=== PATIENT | female | born 1935 | race Caucasian/White ===

== ENCOUNTER 2020-04-02 10:25 | Inpatient (IN) | payer MEDICARE ==
--- NOTE | 2020-04-02 11:33 | RAD ---
XR Chest 1 View Portable HISTORY: Left hip pain. Bone metastases COMPARISON: 04/05/2015 FINDINGS: The heart size is normal. There is continued elevation of the right hemidiaphragm The lungs are without focal areas of consolidation, pneumothorax or pleural effusions. IMPRESSION: No radiographic evidence of acute cardiopulmonary process.
[2020-04-02 11:36] LABS: #Basophils 0.1 thou/uL (0.0-0.2); #Eosinphils 0.2 thou/uL (0.0-0.7); #Lymphocytes 1.2 thou/uL (1.20-3.40); #Monocytes 0.4 thou/uL (0.11-0.59); %Basophils 0.9 % (0.0-1.0); %Lymphocytes 15.1 % (21.0-51.0); %Monocytes 4.9 % (0.0-10.0); %Neutrophils 77.1 % (42.0-75.0); Hemoglobin 13.4 g/dL (12.0-16.0); Mean Corpuscular HGB CONC 33.5 g/dL (32.0-36.0); Mean Corpuscular Hemoglobin 31.1 pg (27.0-31.0); Mean Platelet Volume 8.7 fL (7.4-10.4); Platelet Count 99 thou/uL (130-400); RBC Distribution Width 15.4 % (11.5-14.5); Red Blood Cell (RBC) Count 4.31 mill/uL (4.20-5.40); White Blood Cell (WBC) Count 7.7 thou/uL (4.8-10.8)
[2020-04-02 11:39] LABS: ALT (SGPT) 117 U/L (8-55); AST (SGOT) 135 U/L (5-34); Albumin 3.4 g/dL (3.4-4.8); Alkaline Phosphatase 1079 U/L (40-110); Anion Gap 15 mmol/L (10-20); BUN (Urea Nitrogen) 16 mg/dL (9.8-20.1); Bilirubin, Total 0.7 mg/dL (0.2-1.2); Calc. Creatinine Clearance 0 mL/min (70-130); Calcium 9.2 mg/dL (7.8-10.44); Carbon Dioxide 25 mmol/L (23-31); Chloride 94 mmol/L (98-107); Globulin 2.9 g/dL (2.4-3.5); Glucose 113 mg/dL (83-110); Magnesium 1.9 mg/dL (1.6-2.6); Potassium 3.6 mmol/L (3.5-5.1); Protein, Total 6.3 g/dL (5.8-8.1); Sodium 130 mmol/L (136-145)
[2020-04-02] MEDS ORDERED: Morphine 4 MG/ML VIAL ONE (13:07)
[2020-04-02] MEDS ORDERED: Acetaminophen 650 MG Suppository PR PRN (13:26)
--- NOTE | 2020-04-02 13:47 | PDOC.HHP ---
Hospitalist HPI Generalized weakness, L hip pain History of Present Illness: Ms. Mistry is an 84-year-old female with past medical history of hypertension, hyperlipidemia, asthma, breast cancer status post bilateral mastectomy with ch emo and radiation over 10 years ago who presents to the ER for generalized weakness and left hip pain. Of note patient initially presented to [facility] last week on 127 for a fall and was found to have a left hip fracture and extensive osteolytic and sclerotic lesions concerning for mets. Since there were no oncology services or orthopedic surgical services available there patient was supposed to be transferred to [facility], however patient and her declined transfer and instead elected to pursue outpatient follow-up. They were scheduled for an outpatient bone biopsy with Dr. Woodward as well as outpatient oncology follow-up with Dr. Fischer. Since leaving the mergency room patient has been increasingly weak, and unable to ambulate. Her also reports that she has not been eating much. She denies chest pain, shortness of breath, abdominal pain, nausea vomiting diarrhea melena hematochezia. She endorses generalized fatigue weakness. She denies any recent weight loss and denies fever chills night sweats. She reports her left hip pain is tolerable and she is able to lift her left hip but she is unable to bear weight at this time. In emergency room initial vital signs 118/62, 114, 18, 97.5, 95% on room air. Labs significant for sodium of 130, potassium 3.6, BUN/CR 16/0.75. WBC 7.7, H/H 13.4/40.1, platelets 99. AST/ALT 135/119, alk phos 1079. Chest x-ray with no acute findings. CT abdomen pelvis done at [facility] on showed a left iliac wing fracture extending into the iliac bone to level of the SI joint, pathologic vertebral fracture of S1, and extensive lytic and sclerotic lesions consistent with metastasis. Allergies/Adverse Reactions: Allergy/AdvReac Type Severity Reaction Status Date / Time No Known Allergies Allergy Unverified 04/04/20 12:01 Home Medications: Medication Instructions Recorded Confirmed Type Benzonatate [Tessalon] 100 mg PO TID PRN 04/02/20 04/02/20 History HYDROcodone Bit/APAP 5/325 [[place] 1 tab PO Q6HR PRN 04/02/20 04/02/20 History 5/325] Levothyroxine Sodium 112 mcg PO DAILY 04/02/20 04/02/20 History [Levothyroxine] Lisinopril 20 mg PO DAILY 04/02/20 04/02/20 History Melatonin 3 mg PO QPM 04/02/20 04/02/20 History Memantine HCl [Namenda] 10 mg PO DAILY 04/02/20 04/02/20 History Montelukast Sodium [Singulair] 10 mg PO DAILY 04/02/20 04/02/20 History Naproxen Sodium [Aleve] 220 mg PO DAILY 04/02/20 04/02/20 History guaiFENesin ER [Mucinex] 600 mg PO BID 04/02/20 04/02/20 History Ipratropium [place] 2 sprays INH QID 04/03/20 04/03/20 History Comments: Home medications taken from ER list include Lisinopril Synthroid Montelukast Mucinex Past History: PMHx: Hypertension Hyperlipidemia Asthma Breast cancer over 10 years ago in remissionpatient underwent bilateral mastectomy, chemo and radiation therapy. PSHx: Bilateral mastectomy FHx: Denies cancer, cardiac disease or diabetes Social: Denies smoking, alcohol use, drug. Lives at home with . Hospitalist JOSE ZEPEDA Constitutional: reports: weakness, malaise. denies: fever, chills, sweats, other Eyes: denies: pain, vision change, conjunctivae inflammation, eyelid inflammatio n, redness, other ENT: denies: ear pain, ear discharge, nose pain, nose discharge, nose congestion, mouth pain, mouth swelling, throat pain, throat swelling, other Respiratory: denies: cough, dry, shortness of breath, hemoptysis, SOB with excertion, pleuritic pain, sputum, wheezing, other Cardiovascular: denies: chest pain, palpitations, orthopnea, paroxysmal noc. dyspnea, edema, light headedness, other Gastrointestinal: denies: nausea, vomiting, abdominal pain, diarrhea, constipation, melena, hematochezia, other Genitourinary: denies: dysuria, frequency, incontinence, hematuria, retention, other Musculoskeletal: reports: leg pain. denies: neck pain, shoulder pain, arm pain, back pain, hand pain, foot pain, other Skin: denies: rash, lesions, aura, bruising, other Neurological: denies: weakness, numbness, incoordination, change in speech, confusion, seizures, other Hospitalist Exam General Appearance: NAD, awake alert, ill appearing General - other findings: Voice soft, pale Eye: PERRL, anicteric sclera ENT: normocephalic atraumatic, no oropharyngeal lesions, moist mucosa Neck: supple, symmetric, no JVD, no thyromegaly, no lymphadenopathy, no carotid bruit Heart: RRR, no murmur, no gallops, no rubs, normal peripheral pulses Respiratory: CTAB, no wheezes, no rales, no ronchi, normal chest expansion, no tachypnea, normal percussion Gastrointestinal: soft, non-tender, non-distended, normal bowel sounds, no palpable masses, no hepatomegaly, no splenomegaly, no bruit Extremities: no cyanosis, no clubbing, no edema Skin: normal turgor, no lesions, no rashes Neurological: cranial nerve grossly intact, normal sensation to touch, no weakness, no focal deficits, no new deficit Musculoskeletal: normal tone, generalized weakness, diffuse muscle atrophy Psychiatric: oriented to person, oriented to place, oriented to time, flat affect Hospitalist Results Result Diagrams: 04/12/20 05:30 04/12/20 05:30 Lab results: Laboratory Last Values WBC 7.7 thou/uL (4.8-10.8) 04/02/20 10:50 RBC 4.31 mill/uL (4.20-5.40) 04/02/20 10:50 Hgb 13.4 g/dL (12.0-16.0) 04/02/20 10:50 Hct 40.1 % (36.0-47.0) 04/02/20 10:50 MCV 93.0 fL (78.0-98.0) 04/02/20 10:50 MCH 31.1 pg (27.0-31.0) H 04/02/20 10:50 MCHC 33.5 g/dL (32.0-36.0) 04/02/20 10:50 RDW 15.4 % (11.5-14.5) H 04/02/20 10:50 Plt Count 99 thou/uL (130-400) L 04/02/20 10:50 MPV 8.7 fL (7.4-10.4) 04/02/20 10:50 Neutrophils % 77.1 % (42.0-75.0) H 04/02/20 10:50 Neutrophils % (Manual) Not Reportable 04/02/20 10:50 Lymphocytes % 15.1 % (21.0-51.0) L 04/02/20 10:50 Monocytes % 4.9 % (0.0-10.0) 04/02/20 10:50 Eosinophils % 2.0 % (0.0-10.0) 04/02/20 10:50 Basophils % 0.9 % (0.0-1.0) 04/02/20 10:50 Neutrophils # 6.0 thou/uL (1.40-6.50) 04/02/20 10:50 Lymphocytes # 1.2 thou/uL (1.20-3.40) 04/02/20 10:50 Monocytes # 0.4 thou/uL (0.11-0.59) 04/02/20 10:50 Eosinophils # 0.2 thou/uL (0.0-0.7) 04/02/20 10:50 Basophils # 0.1 thou/uL (0.0-0.2) 04/02/20 10:50 Sodium 130 mmol/L (136-145) L 04/02/20 10:50 Potassium 3.6 mmol/L (3.5-5.1) 04/02/20 10:50 Chloride 94 mmol/L (98-107) L 04/02/20 10:50 Carbon Dioxide 25 mmol/L (23-31) 04/02/20 10:50 Anion Gap 15 mmol/L (10-20) 04/02/20 10:50 BUN 16 mg/dL (9.8-20.1) 04/02/20 10:50 Creatinine 0.75 mg/dL (0.6-1.1) 04/02/20 10:50 Estimated GFR (MDRD) 74 04/02/20 10:50 Glucose 113 mg/dL (83-110) H 04/02/20 10:50 Calcium 9.2 mg/dL (7.8-10.44) 04/02/20 10:50 Magnesium 1.9 mg/dL (1.6-2.6) 04/02/20 10:50 Total Bilirubin 0.7 mg/dL (0.2-1.2) 04/02/20 10:50 AST 135 U/L (5-34) H 04/02/20 10:50 ALT 117 U/L (8-55) H 04/02/20 10:50 Alkaline Phosphatase 1079 U/L (40-110) H 04/02/20 10:50 Serum Total Protein 6.3 g/dL (5.8-8.1) 04/02/20 10:50 Albumin 3.4 g/dL (3.4-4.8) 04/02/20 10:50 Globulin 2.9 g/dL (2.4-3.5) 04/02/20 10:50 Albumin/Globulin Ratio 1.2 g/dL (1.2-2.2) 04/02/20 10:50 Hospitalist H&P A/P Plan: Generalized weakness 84-year-old female with past medical history of breast cancer found to have black iliac wing fracture and extensive osteolytic and sclerotic lesions concerning for mets after CT scan was done for a fall last week at [facility] who now presents for failure to thrive and worsening hip pain. Patient unable to ambulate and is unable to get patient out of bed. Patient has also not been eating much for the past week. Patient is AOx4. H/H 13.4/40.1. Plan -PT/OT consult -Nutrition consult -COVID pending Osteolytic lesions Patient with osteolytic lesions on CT scan concerning for mets. Hx of breast CA over 10 years ago for which the patient reports she had a bilateral mastectomy with chemo and radiation treatment. Concern this may be a recurrence of her breast cancer. Will also check SPEP, UPEP for MM. Plan -Oncology consult, recommendations appreciated -SPEP, UPEP Left iliac wing fracture Discussed case with orthopedic team who said NTD from an inpatient perspective. Patient may bear weight as tolerated and follow up with orthopedics as an outpatient. Plan -WBAT -Outpatient f/u with ortho Hyponatremia Patient mildly hyponatremic to 130. Suspect hypovolemic hyponatremia 2/2 decrea sed PO intake. Will start gentle IVF and continue to monitor. Plan -Gentle IVF -Trend Na Transaminitis AST/ALT mildly elevated 135/119. Alk phos 1079. Patient denies abdominal pain, N/V/D. Abdomen soft, non-tender. Will obtain RUQUS and hepatitis panel. Continue to trend. Plan -RUQUS -Hepatitis panel -Trend LFTs Hypertension Continue home antihypertensives once dosage confirmed Asthma Continue home montelukast. No respiratory distress. Hypothyroidism Continue home levothyroxine. DVT prophylaxis- lovenox FULL CODE Case discussed with attending physician, Dr. Duke.
[2020-04-02] MEDS: Sodium Chloride 0.9% 1,000 ML IV SCH (18:21)
[2020-04-02 18:34] LABS: SARS-CoV-2 PCR by NAA Not Detected (NotDetected)
[2020-04-02 19:34] VITALS: BMI 32.0
[2020-04-02] MEDS: Melatonin 3 MG TAB PO PRN (22:01)
[2020-04-02] MEDS: traMADol HCl 50 MG TAB PO PRN (22:03)
[2020-04-03] MEDS: Levothyroxine Sodium 112 MCG TAB PO SCH (05:45)
[2020-04-03] MEDS: Sodium Chloride 0.9% 1,000 ML IV SCH ×2 (07:20→20:27)
[2020-04-03 07:23] LABS: ALT (SGPT) 91 U/L (8-55); AST (SGOT) 107 U/L (5-34); Albumin 2.6 g/dL (3.4-4.8); Alkaline Phosphatase 829 U/L (40-110); Anion Gap 13 mmol/L (10-20); BUN (Urea Nitrogen) 11 mg/dL (9.8-20.1); Bilirubin, Direct 0.2 mg/dL (0.1-0.3); Bilirubin, Total 0.4 mg/dL (0.2-1.2); Calc. Creatinine Clearance 87 mL/min (70-130); Calcium 8.1 mg/dL (7.8-10.44); Carbon Dioxide 21 mmol/L (23-31); Chloride 101 mmol/L (98-107); Glucose 90 mg/dL (83-110); Potassium 3.6 mmol/L (3.5-5.1); Protein, Total 4.9 g/dL (5.8-8.1); Sodium 131 mmol/L (136-145)
[2020-04-03 07:49] LABS: #Basophils 0.1 thou/uL (0.0-0.2); #Eosinphils 0.2 thou/uL (0.0-0.7); #Lymphocytes 1.6 thou/uL (1.20-3.40); #Monocytes 0.6 thou/uL (0.11-0.59); #Neutrophils 5.3 thou/uL (1.40-6.50); %Basophils 0.9 % (0.0-1.0); %Eosinophils 2.3 % (0.0-10.0); %Lymphocytes 20.3 % (21.0-51.0); %Monocytes 7.4 % (0.0-10.0); Hemoglobin 11.5 g/dL (12.0-16.0); Mean Corpuscular HGB CONC 33.1 g/dL (32.0-36.0); Mean Corpuscular Hemoglobin 30.5 pg (27.0-31.0); Mean Corpuscular Volume 92.2 fL (78.0-98.0); Mean Platelet Volume 8.8 fL (7.4-10.4); Platelet Count 87 thou/uL (130-400); RBC Distribution Width 15.5 % (11.5-14.5); Red Blood Cell (RBC) Count 3.78 mill/uL (4.20-5.40); White Blood Cell (WBC) Count 7.7 thou/uL (4.8-10.8)
[2020-04-03] MEDS: Lisinopril 20 MG TAB PO SCH (09:45)
[2020-04-03] MEDS: Montelukast Sodium 10 mg Tablet PO SCH (09:45)
[2020-04-03] MEDS: Acetaminophen 325 MG TAB PO PRN ×3 (09:45→23:34)
[2020-04-03] MEDS: Enoxaparin Sodium 40 MG/0.4 ML SYRINGE SC SCH (09:49)
[2020-04-03] MEDS ORDERED: Sodium Bicarbonate 2.5 MEQ/5 ML VIAL ONE (14:10)
[2020-04-03] MEDS ORDERED: Fentanyl 100 MCG/2 ML VIAL ONE (14:11)
[2020-04-03 14:25] LABS: INR-International Normal Ratio 1.1; Prothrombin Time 14.4 sec (12.0-14.7)
[2020-04-03 14:26] LABS: PTT 31.5 sec (22.9-36.1)
--- NOTE | 2020-04-03 15:21 | CON ---
DATE OF CONSULTATION: REASON FOR CONSULTATION: Metastatic bone lesions. HISTORY OF PRESENT ILLNESS: Ms. 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 She was diagnosed in 2009 and received treatment with 6 cycles of chemotherapy, then was on Arimidex until 2016. This was stopped secondary to hot flashes. She has been followed annually by Dr. Fischer. She was seen on 03/04 in our clinic where she complained of hip pain that began 1 to 2 months prior after a trauma. She was taking NSAIDs, which helped the pain. It was recommended that she get imaging if pain worsened, so she worsened. On 03/26, she was seen at [facility] for pain. She underwent imaging, which showed osteoblastic metastatic disease in the left acetabulum, left iliac wing, right iliac wing. She also underwent abdominal and pelvis CT, which showed a pathological fracture involving the S1 vertebral body and the left iliac wing fracture extending into the iliac bone at the level of the SI joint. She was to be admitted and biopsy to be done, but she declined admission and went home. Over the last several days, she has been bedridden with increasing pain, weakness, and poor appetite. She presented to our emergency room yesterday for evaluation. She was admitted for pain control and workup. PAST MEDICAL HISTORY: 1. T2 N1 M0 ER/[place] positive, HER-2 negative right breast cancer. 2. Hypertension. PAST SURGICAL HISTORY: 1. Partial mastectomy. 2. Tonsillectomy. 3. Hysterectomy. ALLERGIES: TO PENICILLIN AND PERCODAN. HOME MEDICATIONS: 1. Aleve. 2. Levothyroxine. 3. Lisinopril. 4. Melatonin. 5. Mucinex. 6. Namenda. 7. Hydrocodone. 8. Singulair. 9. Tessalon [place]. FAMILY HISTORY: No history of breast or ovarian cancer. SOCIAL HISTORY: , has 2 children. Lives with her spouse. No alcohol, tobacco, or illicit drug use. REVIEW OF SYSTEMS: A 12-point review of systems is negative except for noted in HPI. PHYSICAL EXAMINATION: VITAL SIGNS: Temperature 97.8, pulse is 86, respiratory rate 18, BP is 134/66, and she is 97% on 2 L. GENERAL: A chronically ill-appearing female, in no acute distress. HEENT: Normocephalic and atraumatic. Pupils are equal and reactive to light. NECK: Supple. CV: Regular rate and rhythm. LUNGS: Clear. ABDOMEN: Soft. Bowel sounds are positive. EXTREMITIES: No clubbing or cyanosis. NEUROLOGIC: Nonfocal. PERTINENT LABORATORY DATA AND X-RAYS: WBCs are 7.7, hemoglobin 11.5, hematocrit 34.9, and platelet count is 87,000. She has 69% neutrophils and 20% lymphocytes. Sodium is 131, potassium 3.6, chloride 101, CO2 is 21, BUN is 11, creatinine 0.55, and calcium 8.1. Bilirubin 0.4, AST is 107, ALT is 91, and alkaline phosphatase is 829. Serum total protein is 4.9, albumin 2.6, and globulin 2.9. COVID PCR negative. Radiology per HPI. ASSESSMENT: 1. Metastatic disease of the bones. 2. History of breast cancer in 2009. DISCUSSION: The case has been discussed with Dr. Fischer. The family is wishing to have a biopsy to confirm diagnosis. We will order CT-guided biopsy of one of the bony lesions. She is having pain with movement and also a poor appetite. We will add steroids for symptom management and to encourage oral intake. We will discuss possible radiation therapy to her left hip for pain control with Dr. Villalta. Further recommendations once metastatic disease is confirmed. Thank you for the consult. We will follow along with her hospital course. Job ID: [id number]
--- NOTE | 2020-04-03 15:33 | CT ---
Pelvic mass biopsy CT-guided HISTORY: Bone metastases. Left iliac bone mass. Breast cancer. FINDINGS: After explaining the procedure and answering all questions, limited CT imaging of the pelvi s was performed with patient prone. Sterile technique, buffered local anesthesia, CT guidance, and a posterior approach were used to care fully advance a 17-gauge trocar needle to the external extra osseous component of the left iliac wing mass. Position confirmed with CT. A total of 2 18-gauge core specimens were obtained and submitted to Dr. Casas from pathology, who c onfirmed specimen adequacy. Needle was removed. No evidence of complication. Patient tolerated the procedure well and was returne d in unchanged condition. IMPRESSION : Technically successful CT-guided left iliac mass biopsy. Pathology is pending.
[2020-04-03] MEDS: Dexamethasone 4 MG TAB PO SCH (16:26)
[2020-04-03] MEDS: traMADol HCl 50 MG TAB PO PRN (16:26)
--- NOTE | 2020-04-03 18:58 | PDOC.HOSPP ---
- Subjective Encounter Date: 04/03/20 Subjective: still have pain with movement, reports congestion - Objective Vital Signs & Weight: Vital Signs (12 hours) Temp Pulse Pulse Resp BP BP BP 04/03/20 16:59 98.7 F 88 20 143/69 H 04/03/20 12:00 97.8 F 86 18 134/66 04/03/20 09:45 153/72 H 04/03/20 09:12 92 153/72 H 04/03/20 08:00 98.8 F 100 18 153/72 H Pulse Ox 04/03/20 16:59 94 L 04/03/20 12:00 97 04/03/20 09:45 04/03/20 09:12 04/03/20 08:00 99 Weight Admit Weight 153 lb 4 oz Weight 153 lb 4 oz I&O: 04/02/20 04/03/20 04/04/20 06:59 06:59 06:59 Intake Total 2320 1396 Output Total 1000 Balance 1320 1396 Result Diagrams: 04/03/20 04:17 04/03/20 03:30 Hospitalist ROS - Medication Medications: Active Medications Generic Name Dose Route Start Last Admin Trade Name Freq PRN Reason Stop Dose Admin Acetaminophen 650 mg 04/02/20 13:26 04/03/20 16:26 Acetaminophen 325 Mg Tab PO 650 mg Q4H PRN Administration Headache/Fever/Mild Pain (1-3) Dexamethasone 4 mg 04/03/20 17:00 04/03/20 16:26 Dexamethasone 4 Mg Tab PO 4 mg BID-WM CANDE Administration Enoxaparin Sodium 40 mg 04/03/20 09:00 04/03/20 09:49 Enoxaparin Sodium 40 Mg/0.4 Ml Syringe SC Not Given 0900 CANDE Sodium Chloride 1,000 mls @ 75 mls/hr 04/02/20 14:30 04/03/20 07:20 Normal Saline 0.9% IV Not Given .[id number] CANDE Levothyroxine Sodium 112 mcg 04/03/20 06:00 04/03/20 05:45 Levothyroxine Sodium 112 Mcg Tab PO 112 mcg 0600 CANDE Administration Lisinopril 20 mg 04/03/20 09:00 04/03/20 09:45 Lisinopril 20 Mg Tab PO 20 mg DAILY CANDE Administration Melatonin 3 mg 04/02/20 20:51 04/02/20 22:01 Melatonin 3 Mg Tab PO 3 mg HSPRN PRN Administration Insomnia Memantine 10 mg 04/03/20 09:00 04/03/20 09:45 Memantine Hcl 10 Mg Tab PO 10 mg DAILY CANDE Administration Montelukast Sodium 10 mg 04/03/20 09:00 04/03/20 09:45 Montelukast Sodium 10 Mg Tablet PO 10 mg DAILY CANDE Administration Tramadol HCl 50 mg 04/02/20 14:16 04/03/20 16:26 Tramadol Hcl 50 Mg Tab PO 50 mg Q6H PRN Administration Moderate to Severe Pain (6-10) Hospitalist Exam Vitals: Vital Signs (12 hours) Temp Pulse Pulse Resp BP BP BP 04/03/20 16:59 98.7 F 88 20 143/69 H 04/03/20 12:00 97.8 F 86 18 134/66 04/03/20 09:45 153/72 H 04/03/20 09:12 92 153/72 H 04/03/20 08:00 98.8 F 100 18 153/72 H Pulse Ox 04/03/20 16:59 94 L 04/03/20 12:00 97 04/03/20 09:45 04/03/20 09:12 04/03/20 08:00 99 Weight Admit Weight 153 lb 4 oz Weight 153 lb 4 oz General Appearance: NAD, awake alert Eye: PERRL ENT: normocephalic atraumatic Neck: supple, symmetric, no JVD, no thyromegaly Heart: RRR, no murmur, no gallops, no rubs Respiratory: CTAB, no wheezes, no rales, no ronchi Gastrointestinal: soft, non-tender, non-distended, normal bowel sounds Extremities: no cyanosis, 1+ LE edema Skin: normal turgor Neurological: cranial nerve grossly intact, normal sensation to touch Musculoskeletal: normal tone, normal strength Hosp A/P (1) Breast cancer metastasized to bone Code(s): C50.919 - MALIGNANT NEOPLASM OF UNSP SITE OF UNSPECIFIED FEMALE BREAST; C79.51 - SECONDARY MALIGNANT NEOPLASM OF BONE Status: Acute (2) Transaminitis Code(s): R74.01 - ELEVATION OF LEVELS OF LIVER TRANSAMINASE LEVELS Status: Acute (3) Hypertension Code(s): I10 - ESSENTIAL (PRIMARY) HYPERTENSION Status: Acute (4) Hyponatremia Code(s): E87.1 - HYPO-OSMOLALITY AND HYPONATREMIA Status: Acute - Plan plan for today 2/3 malnutrition, dietary recommending PPN, will discuss with Oncology, will continue IVF, will recheck sodium in am.awaiting bone biopsy. I resumed norco for pain. I resumed mucinex.
[2020-04-03] MEDS: guaiFENesin ER 600 MG TAB PO SCH (20:26)
[2020-04-03] MEDS: Melatonin 3 MG TAB PO SCH (20:27)
[2020-04-03] MEDS: HYDROcodone/Acetaminophen 5/325 mg Tablet PO PRN (21:04)
[2020-04-03] MEDS: Melatonin 3 MG TAB PO PRN (23:34)
[2020-04-04] MEDS: Acetaminophen 325 MG TAB PO PRN (04:01)
[2020-04-04] MEDS: Levothyroxine Sodium 112 MCG TAB PO SCH (04:02)
[2020-04-04] MEDS: HYDROcodone/Acetaminophen 5/325 mg Tablet PO PRN ×3 (05:52→21:03)
[2020-04-04 06:52] LABS: Anion Gap 15 mmol/L (10-20); BUN (Urea Nitrogen) 11 mg/dL (9.8-20.1); Calc. Creatinine Clearance 95 mL/min (70-130); Calcium 8.5 mg/dL (7.8-10.44); Carbon Dioxide 21 mmol/L (23-31); Chloride 96 mmol/L (98-107); Glucose 106 mg/dL (83-110); Potassium 3.4 mmol/L (3.5-5.1); Sodium 129 mmol/L (136-145)
[2020-04-04 07:21] LABS: #Basophils 0.1 thou/uL (0.0-0.2); #Eosinphils 0.1 thou/uL (0.0-0.7); #Lymphocytes 1.3 thou/uL (1.20-3.40); #Monocytes 0.7 thou/uL (0.11-0.59); #Neutrophils 6.5 thou/uL (1.40-6.50); %Basophils 0.8 % (0.0-1.0); %Eosinophils 0.6 % (0.0-10.0); %Lymphocytes 15.3 % (21.0-51.0); %Neutrophils 75.3 % (42.0-75.0); Hemoglobin 11.7 g/dL (12.0-16.0); Mean Corpuscular HGB CONC 33.9 g/dL (32.0-36.0); Mean Corpuscular Hemoglobin 30.7 pg (27.0-31.0); Mean Corpuscular Volume 90.5 fL (78.0-98.0); Mean Platelet Volume 9.1 fL (7.4-10.4); Platelet Count 88 thou/uL (130-400); RBC Distribution Width 15.1 % (11.5-14.5); Red Blood Cell (RBC) Count 3.81 mill/uL (4.20-5.40); White Blood Cell (WBC) Count 8.6 thou/uL (4.8-10.8)
[2020-04-04] MEDS: guaiFENesin ER 600 MG TAB PO SCH ×2 (08:32→20:07)
[2020-04-04] MEDS: Montelukast Sodium 10 mg Tablet PO SCH (08:32)
[2020-04-04] MEDS: Lisinopril 20 MG TAB PO SCH (08:32)
[2020-04-04] MEDS: Dexamethasone 4 MG TAB PO SCH ×2 (08:34→17:20)
[2020-04-04] MEDS: Enoxaparin Sodium 40 MG/0.4 ML SYRINGE SC SCH (08:40)
--- NOTE | 2020-04-04 10:24 | CT ---
Pelvic mass biopsy CT-guided HISTORY: Bone metastases. Left iliac bone mass. Breast cancer. FINDINGS: After explaining the procedure and answering all questions, limited CT imaging of the pelvi s was performed with patient prone. Sterile technique, buffered local anesthesia, CT guidance, and a posterior approach were used to care fully advance a 17-gauge trocar needle to the external extra osseous component of the left iliac wing mass. Position confirmed with CT. A total of 2 18-gauge core specimens were obtained and submitted to Dr. Casas from pathology, who c onfirmed specimen adequacy. Needle was removed. No evidence of complication. Patient tolerated the procedure well and was returne d in unchanged condition. IMPRESSION : Technically successful CT-guided left iliac mass biopsy. Pathology is pending. Transcribed Date/Time: 04/04/2020 10:24 AM
[2020-04-04] MEDS: Sodium Chloride 0.9% 1,000 ML IV SCH (11:21)
--- NOTE | 2020-04-04 12:26 | PDOC.HOSPP ---
- Subjective Subjective: feels ok - Objective Vital Signs & Weight: Vital Signs (12 hours) Temp Pulse Resp BP BP Pulse Ox 04/04/20 08:32 146/72 H 93 L 04/04/20 08:00 98.2 F 98 16 146/72 H 93 L 04/04/20 03:48 97.5 F L 101 H 16 139/76 93 L Weight Admit Weight 153 lb 4 oz Weight 153 lb 4 oz I&O: 04/03/20 04/04/20 04/05/20 06:59 06:59 06:59 Intake Total 2320 3661 Output Total 1000 1400 Balance 1320 2261 Result Diagrams: 04/04/20 05:22 04/04/20 05:22 Hospitalist ROS - Medication Medications: Active Medications Generic Name Dose Route Start Last Admin Trade Name Freq PRN Reason Stop Dose Admin Acetaminophen 650 mg 04/02/20 13:26 04/04/20 04:01 Acetaminophen 325 Mg Tab PO 650 mg Q4H PRN Administration Headache/Fever/Mild Pain (1-3) Hydrocodone Bitart/Acetaminophen 1 tab 04/03/20 20:08 04/04/20 05:52 Hydrocodone/Acetaminophen 5/325 Mg Tablet PO 1 tab Q6H PRN Administration .BREAKTHROUGH Pain Dexamethasone 4 mg 04/03/20 17:00 04/04/20 08:34 Dexamethasone 4 Mg Tab PO 4 mg BID-WM CANDE Administration Enoxaparin Sodium 40 mg 04/03/20 09:00 04/04/20 08:40 Enoxaparin Sodium 40 Mg/0.4 Ml Syringe SC Not Given 0900 CANDE Guaifenesin 600 mg 04/03/20 21:00 04/04/20 08:32 Guaifenesin Er 600 Mg Tab PO 600 mg BID CANDE Administration Sodium Chloride 1,000 mls @ 75 mls/hr 04/02/20 14:30 04/04/20 11:21 Normal Saline 0.9% IV 1,000 mls .[id number] CANDE Administration Levothyroxine Sodium 112 mcg 04/03/20 06:00 04/04/20 04:02 Levothyroxine Sodium 112 Mcg Tab PO 112 mcg 0600 CANDE Administration Lisinopril 20 mg 04/03/20 09:00 04/04/20 08:32 Lisinopril 20 Mg Tab PO 20 mg DAILY CANDE Administration Melatonin 3 mg 04/02/20 20:51 04/03/20 23:34 Melatonin 3 Mg Tab PO 3 mg HSPRN PRN Administration Insomnia Melatonin 3 mg 04/03/20 21:00 04/03/20 20:27 Melatonin 3 Mg Tab PO 3 mg QPM CANDE Administration Memantine 10 mg 04/03/20 09:00 04/04/20 08:35 Memantine Hcl 10 Mg Tab PO 10 mg DAILY CANDE Administration Montelukast Sodium 10 mg 04/03/20 09:00 04/04/20 08:32 Montelukast Sodium 10 Mg Tablet PO 10 mg DAILY CANDE Administration Pantoprazole Sodium 40 mg 04/04/20 09:00 04/04/20 08:34 Pantoprazole 40 Mg Tab PO 40 mg DAILY CANDE Administration Tramadol HCl 50 mg 04/02/20 14:16 04/03/20 16:26 Tramadol Hcl 50 Mg Tab PO 50 mg Q6H PRN Administration Moderate to Severe Pain (6-10) Hospitalist Exam Vitals: Vital Signs (12 hours) Temp Pulse Resp BP BP Pulse Ox 04/04/20 08:32 146/72 H 93 L 04/04/20 08:00 98.2 F 98 16 146/72 H 93 L 04/04/20 03:48 97.5 F L 101 H 16 139/76 93 L Weight Admit Weight 153 lb 4 oz Weight 153 lb 4 oz General Appearance: NAD Eye: PERRL ENT: normocephalic atraumatic Neck: supple, symmetric Heart: RRR, no murmur Respiratory: CTAB, no wheezes, no rales Gastrointestinal: soft, non-tender, non-distended Extremities: no cyanosis, no clubbing, no edema Skin: normal turgor, no lesions Neurological: cranial nerve grossly intact, normal sensation to touch Musculoskeletal: normal tone Hosp A/P (1) Breast cancer metastasized to bone Code(s): C50.919 - MALIGNANT NEOPLASM OF UNSP SITE OF UNSPECIFIED FEMALE BREAST; C79.51 - SECONDARY MALIGNANT NEOPLASM OF BONE Status: Acute (2) Transaminitis Code(s): R74.01 - ELEVATION OF LEVELS OF LIVER TRANSAMINASE LEVELS Status: Acute (3) Hypertension Code(s): I10 - ESSENTIAL (PRIMARY) HYPERTENSION Status: Acute (4) Hyponatremia Code(s): E87.1 - HYPO-OSMOLALITY AND HYPONATREMIA Status: Acute - Plan plan for today 2 malnutrition, dietary recommending PPN, will discuss with Oncology, will continue IVF, will recheck sodium in am.awaiting bone biopsy. I resumed norco for pain. I resumed mucinex. Plan for today 04/04 will be going for radiation therapy will add morphine IV PRN replace K, and start PPN. palliative care consult, special education case manager and PT to evaluate for placement.
[2020-04-04] MEDS ORDERED: Potassium Chloride 20 MEQ TAB PO SCH (12:30)
[2020-04-04 12:59] LABS: Albumin 2.6 g/dL (2.9-4.4); Alpha 1 0.4 g/dL (0.0-0.4); Alpha 2 0.9 g/dL (0.4-1.0); Beta 0.8 g/dL (0.7-1.3); Gamma 0.5 g/dL (0.4-1.8); Globulin, Total 2.5 g/dL (2.2-3.9); M-Spike Not Observed g/dL (Not Observed)
--- NOTE | 2020-04-04 13:32 | PDOC.CONS ---
- Consultation Encounter Date: 04/04/20 Encounter Time: 13:01 RADIATION ONCOLOGY CONSULT NOTE IDENTIFICATION: 84 yo F with remote history of early stage breast cancer treated with surgery, chemo, radiation, and endocrine therapy in 2009, now with newly diagnosed lytic and sclerotic osseous lesions with left hip pain and pathologic fracture of leflt iliac bone and S1, pending bone biospy, referred for consideration of palliative radiation. HISTORY OF PRESENT ILLNESS: Ms. Mistry has a cancer history dating back to 2009 when she was treated by a team at the [facility] including Dr. Bryant (med onc), Dr. Lowe (rad onc), and a surgeon. She had a partial mastectomy and sentinel kari sampling in March 2009 for invasive breast cancer of the right breast measuring 2.3 cm with microscopoic metastases in a sentinel node. The malignancy was ER/MA+ and HER2-. Oncotype DX was 11. She underwent combination chemotherapy including TC x 6 followed by radiation. Arimidex was initiated for approximately 5 years, discontinued due to vasomotor complaints and weight gain. Shew as subsequently followed by Dr. Fischer for cancer surveillance and has had routine MMGs, most recently in 2018, and per patient report these have not been abnormal. More recently, Ms. Mistry started having hip pain in the left hip. She is unsure when it began, perhaps end of 2019. It worsened after she had a fall to her left hip in March 2020. She has been taking NSAIDs and Tylenol for the pain. When pain continued to worsen and she developed generalized weakness with poor appetite, she presented to ED in [facility] last week. There, she had x rays that showed concern for sclerotic activity in pelvis. CT brain and C spine showed no acute abnormalities with sclerotic lesions visualized in vertebrae. However, CT abd/pelvis showed multifocal osseous lytic and sclerotic foci concerning for metastases as well as left iliac wing and S1 vertebral body pathologic fractures. There was a soft tissue density adjacent to left iliac wing that may represent hematoma vs malignancy. Notably, bilateral femoral necks/heads were maintained. She was planning for transfer to [facility], but declined when bed was unable to be obtained. Therefore, she went home and had increasing pain and weakness. Thus, she represented to ED in [place] and admitted for further workup and pain control. She underwent CT-guided bone biopsy on 04/03/2020 for pathologic confirmation, and given her concern for new metastatic disease, medical oncology and radiation oncology were consulted. The case was reportedly discussed with orthopedic surgery who did not suggest immediate intervention. Regarding symptoms, Ms. Mistry reports the left hip pain is only present when she moves. At rest, there is no pain. The pain is located in her left pelvis and does not radiate to her back or down her leg/groin. Since being hospitalized, she has not been out of bed, but was previously ambulating with assistance at home. She has had a progressive decline over past few months with poor appetite and generalized weakness. She denies pain in other parts of her body, headaches, nausea, vomiting, diarrhea (instead reports constipation while on narcotics), bladder issues, abdominal pain, SOB, or cough. PAST MEDICAL HISTORY: HTN; HLD; Breast cancer PAST SURGICAL HISTORY: Tonsillectomy as child; Hysterectomy 1993; Lumpectomy and SLNBx 03/2009 ALLERGIES: PCN FAMILY HISTORY: None pertinent SOCIAL HISTORY: T: Denies; E: Denies; D: Denies. Lives in [place] with her . Retired computer assembler. PREVIOUS RADIATION: Previous radiation to breast. REVIEW OF SYSTEMS: 10-point ROS negative except as per HPI and nursing notes. PHYSICAL EXAM: GENERAL: KPS 60. Female in no distress lying in hospital bed. HEENT: Normocephalic, atraumatic. LYMPHATICS: No cervical or supraclavicular adenopathy palpable bilaterally. CARDIOVASCULAR: Regular rate and rhythm. No murmurs, rubs, or gallops. PULMONARY: Anterior lung abreu clear to auscultation bilaterally. No crackles, wheezes, or rhonchi. BACK: Tender to palpation of left SI joint, and entirety of left bony pelvis. No tenderness on right. ABDOMEN: Soft, nontender, nondistended. MUSCULOSKELETAL: 1+ RLE edema. No gross joint deformities. Old scar lower right leg. NEUROLOGIC: Cranial nerves II-XII intact. Strength 5/5 in upper extremities bilaterally. Lower extremity strength limited due to pain, with dorsi/plantarflexion 5/5. Sensation to soft touch intact and symmetric in upper and lower extremities. LABS: Reviewed from 04/03-05/2020. Alk Phos 829. Plt 88. Hgb 11.7. Na 129. IMAGING: XR Pelvis, 03/26/2020: Increased sclerotic activity including left acetabulum, left iliac wing, and right iliac wind suspicious for possible osteoblastic metastatic disease. XR Right Hip, 03/26/2020: Unremarkable. CT Brain, 03/26/2020: Unremarkable. CT C Spine, 03/26/2020: Unremarkable. CT Abd/Pelvis, 03/27/2020: Multifocal lytic and sclerotic foci throughout visualized osseous structures. Evidence of pathologic fracture involving S1 vertebral body and left iliac wing with increased soft tissue density. Fracture extends to SI joint. Right iliac wing intact. Bilateral femoral heads and necks intact. Lung nodules. PATHOLOGY: Left Hip Bone Biopsy, 04/03/2020: Pending ASSESMENT/PLAN: 84 yo F with remote history of early stage breast cancer treated with surgery, chemo, radiation, and endocrine therapy in 2009, now with newly diagnosed lytic and sclerotic osseous lesions with left hip pain and pathologic fracture of leflt iliac bone and S1, pending bone biospy, referred for consideration of palliative radiation. Ms. Mistry unfortunately has apparent development of widespread osseous metastatic disease from a remote history of early stage breast cancer that was adequately treated despite posttreatment surveillance breast imaging. Pathologic fractures suspect resulted from diffuse ossoeous demineralization, metastases, and trauma. She has significant pain in her left hip, and radiation may alleviate the pain related to the osseous neoplasm, pain from which was clearly present prior to her trauma. However, radiation will not improve the mechanical pain caused by fractures for which surgery and adequate analgesics are recommended. Palliative care may be able to assist further to help transition her to home narcotic regimen. Regarding radiation, plan to treat the left iliac wing and S1 for palliation of pain and local control of cancer in left hip. Given the extent of disease and potential soft tissue component, anticipate treatment to 30 Gy in 10 fractions given as daily treatments. Will bring her for the planning CT simulation today, 04/04/2020 with intent to start treatment tomorrow, 04/05. She will also be treated Thursday 04/06 and will then resume the M-F daily regimen next week to complete total 10 treatments. If she is discharged, she should continue to receive radiation as outpatient. Recap: - Plan for palliative radiation to left pelvis to 30 Gy/10 fx for pain/local control - Radiation planning CT simulation scheduled 04/04/2020 with intent to start treatment 04/05 - Rec palliative care consult for pain control
--- NOTE | 2020-04-04 13:46 | PDOC.MOPN ---
Interval History: 1. Dr. Greer consulted for radiation to left hip 2. await biopsy results, likely hormonal therapy 3. agree with PPn - Vital Signs Vital Signs: Vital Signs (12 hours) Temp Pulse Resp BP BP Pulse Ox 04/04/20 08:32 146/72 H 93 L 04/04/20 08:00 98.2 F 98 16 146/72 H 93 L 04/04/20 03:48 97.5 F L 101 H 16 139/76 93 L Weight Admit Weight 153 lb 4 oz Weight 153 lb 4 oz - Labs Result Diagrams: 04/04/20 05:22 04/04/20 05:22 Lab results: Laboratory Results - last 24 hr 04/04/20 05:22: WBC 8.6, RBC 3.81 L, Hgb 11.7 L, Hct 34.5 L, MCV 90.5, MCH 30.7, MCHC 33.9, RDW 15.1 H, Plt Count 88 L, MPV 9.1, Neutrophils % 75.3 H, Neutrophils % (Manual) Not Reportable, Lymphocytes % 15.3 L, Monocytes % 8.0, Eosinophils % 0.6, Basophils % 0.8, Neutrophils # 6.5, Lymphocytes # 1.3, Monocytes # 0.7 H, Eosinophils # 0.1, Basophils # 0.1 04/04/20 05:22: Sodium 129 L, Potassium 3.4 L, Chloride 96 L, Carbon Dioxide 21 L, Anion Gap 15, BUN 11, Creatinine 0.50 L, Estimated GFR (MDRD) Greater than 90, Glucose 106, Calcium 8.5 04/03/20 14:08: PT 14.4, INR 1.1, APTT 31.5 04/02/20 15:05: Globulin 2.5, Albumin/Globulin Ratio 1.0, Aunvh-9-Utoxdjrub 0.4, Flesy-0-Znxyhoygi 0.9, Beta Globulins 0.8, Gamma Globulins 0.5, M-Rosales Not Observed, PEP Note , PEP Interpretation , Total Protein (MORA) 5.1 L, Albumin ( MORA) 2.6 L
[2020-04-04] MEDS: Morphine 2 MG/ML VIAL SLOW IVP PRN ×2 (14:36→15:14)
[2020-04-04] MEDS: D5W-AA 4.25% with LYTES 1,000 ML IV SCH (17:20)
[2020-04-04] MEDS: Melatonin 3 MG TAB PO PRN (20:07)
[2020-04-04] MEDS: Melatonin 3 MG TAB PO SCH (20:07)
[2020-04-04] MEDS: Ipratropium Bromide 0.03% Nasal Inhaler 30 ml Bottle EA NARE SCH (21:04)
[2020-04-05] MEDS: D5W-AA 4.25% with LYTES 1,000 ML IV SCH ×2 (05:10→18:21)
[2020-04-05] MEDS: Levothyroxine Sodium 112 MCG TAB PO SCH (05:10)
[2020-04-05 05:32] LABS: Anion Gap 15 mmol/L (10-20); BUN (Urea Nitrogen) 18 mg/dL (9.8-20.1); Calc. Creatinine Clearance 90 mL/min (70-130); Calcium 8.4 mg/dL (7.8-10.44); Carbon Dioxide 23 mmol/L (23-31); Chloride 91 mmol/L (98-107); Glucose 142 mg/dL (83-110); Potassium 3.9 mmol/L (3.5-5.1); Sodium 125 mmol/L (136-145)
[2020-04-05 06:19] LABS: #Eosinphils 0.1 thou/uL (0.0-0.7); #Lymphocytes 1.9 thou/uL (1.20-3.40); #Neutrophils 9.3 thou/uL (1.40-6.50); %Basophils 0.2 % (0.0-1.0); %Eosinophils 0.8 % (0.0-10.0); %Lymphocytes 15.2 % (21.0-51.0); %Monocytes 8.5 % (0.0-10.0); %Neutrophils 75.4 % (42.0-75.0); Hemoglobin 11.8 g/dL (12.0-16.0); Mean Corpuscular HGB CONC 33.4 g/dL (32.0-36.0); Mean Corpuscular Hemoglobin 30.1 pg (27.0-31.0); Mean Corpuscular Volume 90.3 fL (78.0-98.0); Mean Platelet Volume 8.9 fL (7.4-10.4); Platelet Count 100 thou/uL (130-400); Red Blood Cell (RBC) Count 3.93 mill/uL (4.20-5.40); White Blood Cell (WBC) Count 12.3 thou/uL (4.8-10.8)
[2020-04-05] MEDS: guaiFENesin ER 600 MG TAB PO SCH ×2 (08:39→20:25)
[2020-04-05] MEDS: Dexamethasone 4 MG TAB PO SCH ×2 (08:39→16:51)
[2020-04-05] MEDS: Lisinopril 20 MG TAB PO SCH (08:39)
[2020-04-05] MEDS: Enoxaparin Sodium 40 MG/0.4 ML SYRINGE SC SCH (08:39)
[2020-04-05] MEDS: Montelukast Sodium 10 mg Tablet PO SCH (08:39)
[2020-04-05] MEDS: HYDROcodone/Acetaminophen 5/325 mg Tablet PO PRN ×2 (08:45→14:34)
[2020-04-05] MEDS: Ipratropium Bromide 0.03% Nasal Inhaler 30 ml Bottle EA NARE SCH ×4 (08:45→23:28)
[2020-04-05] MEDS ORDERED: Sodium Chloride 1 GM TAB PO SCH ×2 (10:15→21:00)
[2020-04-05] MEDS: Morphine 2 MG/ML VIAL SLOW IVP PRN (13:29)
--- NOTE | 2020-04-05 13:47 | PDOC.MOPN ---
Interval History: Seen on stretcher, about to go to XRT. Pain ok. tolerating PPN - Vital Signs Vital Signs: Vital Signs (12 hours) Temp Pulse Resp BP BP Pulse Ox 04/05/20 11:15 97.5 F L 96 14 147/70 H 96 04/05/20 08:39 148/71 H 97 04/05/20 07:08 97.8 F 89 16 148/71 H 97 Weight Admit Weight 153 lb 4 oz Weight 153 lb 4 oz - Physical Exam General: Alert Lungs: Clear to auscultation Cardiovascular: Regular rate Abdomen: Normal bowel sounds Neurological: Normal speech - Labs Result Diagrams: 04/05/20 04:45 04/05/20 04:45 Lab results: Laboratory Results - last 24 hr 04/05/20 04:45: WBC 12.3 H, RBC 3.93 L, Hgb 11.8 L, Hct 35.5 L, MCV 90.3, MCH 30.1, MCHC 33.4, RDW 15.0 H, Plt Count 100 L, MPV 8.9, Neutrophils % 75.4 H, Neutrophils % (Manual) Not Reportable, Lymphocytes % 15.2 L, Monocytes % 8.5, Eosinophils % 0.8, Basophils % 0.2, Neutrophils # 9.3 H, Lymphocytes # 1.9, Monocytes # 1.0 H, Eosinophils # 0.1, Basophils # 0.0 04/05/20 04:45: Sodium 125 L, Potassium 3.9, Chloride 91 L, Carbon Dioxide 23, Anion Gap 15, BUN 18, Creatinine 0.53 L, Estimated GFR (MDRD) Greater than 90, Glucose 142 H, Calcium 8.4 Status: lab reviewed by me A/P - Problem (1) Breast cancer metastasized to bone Current Visit: Yes Code(s): C50.919 - MALIGNANT NEOPLASM OF UNSP SITE OF UNSPECIFIED FEMALE BREAST; C79.51 - SECONDARY MALIGNANT NEOPLASM OF BONE Status: Acute - Plan Plan: 1. awaiting final path, however, likely metastatic breast cancer 2. xrt today 3. likely hormonal therapy.
--- NOTE | 2020-04-05 16:10 | PDOC.PALCO ---
Palliative Care Consult - Consult Details Requesting Physician: Dr Teixeira/Hospitalist Reason for Consult: goals of care, symptom management Family Members Present: Spouse - Pertinent HPI 84 year old female with remote history of early stage of breast cancer. Recent diagnosis with lytic and sclerotic osseous lesions paired with left hip pain an pathologic fracture. Admitted for further medical management and palliative radiation. Left hip pain was reported ot onset in late 2019, fall in Mar 2020. Pain increased with decrease in appetite and pronounced weakness and decreasing ability to tolerate basic ADL. Presented to emergency room in where CT suspected metastatic disease was identified. Transferred to [place] to Oncology for further evaluation. Patient to have marking today for palliative radiation. - Social History Smoking Status: Never smoker Smoking: no tobacco exposure Alcohol Use: none Drug Use History: none Living Situation: - Medications MAR Reviewed: Yes - Allergies Allergies/Adverse Reactions: Allergies Allergy/AdvReac Type Severity Reaction Status Date / Time No Known Allergies Allergy Unverified 04/04/20 12:01 - Subjective at bedside, limited mobility secondary to pain, recent loose stools. Decrease in appetite - ROS Constitutional: alert, loss appetite, weakness ENT: dry mouth, other (Denies difficulity swallowing) Respiratory: other (Denies cough, congestion) Cardiology: other (Denies palpitations, chest pain) Genitourinary: other (Negative for hematuria) Musculoskeletal: leg pain, limited mobility, other (hip) Skin: other (Denies rahs, puritis,) - Objective Vital Signs: Vital Signs - Most Recent Temp Pulse Resp BP Pulse Ox 97.5 F L 96 14 147/70 H 96 04/05/20 11:15 04/05/20 11:15 04/05/20 11:15 04/05/20 11:15 04/05/20 11:15 Palliative Performance Scale: 50 - Physical Exam Constitutional: ill appearing, mild distress HEENT: EOMI, moist MMs, sclera anicteric Respiratory: no wheezing, unlabored breathing Cardiovascular: no significant murmur, RRR Gastrointestinal: soft, non-tender, hyperactive bowel sounds, incontinent Musculoskeletal: no cyanosis, no clubbing, pulses present Deviation from normal: decreased rom to lower ext secondary to pain Skin: cap refill <2 seconds, no lesions, no rash Psychiatric: A&O x 3 - Problem List (1) Palliative care encounter Code(s): Z51.5 - ENCOUNTER FOR PALLIATIVE CARE Current Visit: Yes Status: Acute (2) Breast cancer metastasized to bone Code(s): C50.919 - MALIGNANT NEOPLASM OF UNSP SITE OF UNSPECIFIED FEMALE BREAST; C79.51 - SECONDARY MALIGNANT NEOPLASM OF BONE Current Visit: Yes Status: Acute (3) Hypertension Code(s): I10 - ESSENTIAL (PRIMARY) HYPERTENSION Current Visit: Yes Status: Acute (4) Hyponatremia Code(s): E87.1 - HYPO-OSMOLALITY AND HYPONATREMIA Current Visit: Yes Status: Acute (5) Transaminitis Code(s): R74.01 - ELEVATION OF LEVELS OF LIVER TRANSAMINASE LEVELS Current Visit: Yes Status: Acute - Plan/Recommendations Plan: Attempted to see patient 04/04/2020 but at radiation obtaining markings. Introduced Palliative care to patient and spouse. Currently no scheduled pain medications, states that pain improves with oral med, but is worse with movement to radiation. Will transition to Hydrocodone q 8 as patient states PRN was helping, continue with Morphine 15 min prior to transfer to radiation. If pain not improved will increase oral doses as well as Dexa to either 8mg bid or 16 q am. Palliative care will follow up to readdress pain, directives, and Goal of Care. [50] minutes spent on this encounter with >50% of the time in counseling and coordination of care. Thank you for this very appropriate consult.
--- NOTE | 2020-04-05 18:09 | PDOC.HOSPP ---
- Subjective Subjective: feels better today, still have pain with movement - Objective Vital Signs & Weight: Vital Signs (12 hours) Temp Pulse Resp BP BP Pulse Ox 04/05/20 15:25 97.4 F L 86 16 150/75 H 96 04/05/20 11:15 97.5 F L 96 14 147/70 H 96 04/05/20 08:39 148/71 H 97 04/05/20 07:08 97.8 F 89 16 148/71 H 97 Weight Admit Weight 153 lb 4 oz Weight 153 lb 4 oz I&O: 04/04/20 04/05/20 04/06/20 06:59 06:59 06:59 Intake Total 3661 3590 Output Total 1400 2200 Balance 2261 1390 Result Diagrams: 04/05/20 04:45 04/05/20 04:45 Hospitalist ROS - Medication Medications: Active Medications Generic Name Dose Route Start Last Admin Trade Name Freq PRN Reason Stop Dose Admin Acetaminophen 650 mg 04/02/20 13:26 04/04/20 04:01 Acetaminophen 325 Mg Tab PO 650 mg Q4H PRN Administration Headache/Fever/Mild Pain (1-3) Hydrocodone Bitart/Acetaminophen 1 tab 04/03/20 20:08 04/05/20 14:34 Hydrocodone/Acetaminophen 5/325 Mg Tablet PO 1 tab Q6H PRN Administration .BREAKTHROUGH Pain Dexamethasone 4 mg 04/03/20 17:00 04/05/20 16:51 Dexamethasone 4 Mg Tab PO 4 mg BID-WM CANDE Administration Enoxaparin Sodium 40 mg 04/03/20 09:00 04/05/20 08:39 Enoxaparin Sodium 40 Mg/0.4 Ml Syringe SC 40 mg 0900 CANDE Administration Guaifenesin 600 mg 04/03/20 21:00 04/05/20 08:39 Guaifenesin Er 600 Mg Tab PO 600 mg BID CANDE Administration Amino Acids/Electrolytes/Dextrose 1,000 mls @ 80 mls/hr 04/04/20 13:00 04/05/20 05:10 Clinimix E 4.25/5 IV 1,000 mls INF CANDE Administration Ipratropium [place] 0 ml 04/04/20 21:00 04/05/20 16:51 Ipratropium [place] 0.03% Nasal Inhaler 30 Ml Bottle EA NARE 2 spr QID CANDE Administration Levothyroxine Sodium 112 mcg 04/03/20 06:00 04/05/20 05:10 Levothyroxine Sodium 112 Mcg Tab PO 112 mcg 0600 CANDE Administration Lisinopril 20 mg 04/03/20 09:00 04/05/20 08:39 Lisinopril 20 Mg Tab PO 20 mg DAILY CANDE Administration Melatonin 3 mg 04/02/20 20:51 04/04/20 20:07 Melatonin 3 Mg Tab PO 3 mg HSPRN PRN Administration Insomnia Melatonin 3 mg 04/03/20 21:00 04/04/20 20:07 Melatonin 3 Mg Tab PO 3 mg QPM CANDE Administration Memantine 10 mg 04/03/20 09:00 04/05/20 08:39 Memantine Hcl 10 Mg Tab PO 10 mg DAILY CANDE Administration Montelukast Sodium 10 mg 04/03/20 09:00 04/05/20 08:39 Montelukast Sodium 10 Mg Tablet PO 10 mg DAILY CANDE Administration Morphine Sulfate 2 mg 04/04/20 12:17 04/05/20 13:29 Morphine 2 Mg/Ml Vial SLOW IVP 2 mg Q2H PRN Administration Severe Pain (7-10) Pantoprazole Sodium 40 mg 04/04/20 09:00 04/05/20 08:39 Pantoprazole 40 Mg Tab PO 40 mg DAILY CANDE Administration Tramadol HCl 50 mg 04/02/20 14:16 04/03/20 16:26 Tramadol Hcl 50 Mg Tab PO 50 mg Q6H PRN Administration Moderate to Severe Pain (6-10) Hospitalist Exam Vitals: Vital Signs (12 hours) Temp Pulse Resp BP BP Pulse Ox 04/05/20 15:25 97.4 F L 86 16 150/75 H 96 04/05/20 11:15 97.5 F L 96 14 147/70 H 96 04/05/20 08:39 148/71 H 97 04/05/20 07:08 97.8 F 89 16 148/71 H 97 Weight Admit Weight 153 lb 4 oz Weight 153 lb 4 oz General Appearance: NAD, awake alert Eye: PERRL, anicteric sclera ENT: normocephalic atraumatic Neck: supple, symmetric Heart: RRR, no murmur, no gallops Respiratory: CTAB, no wheezes, no rales Gastrointestinal: soft, non-tender, non-distended Hosp A/P (1) Breast cancer metastasized to bone Code(s): C50.919 - MALIGNANT NEOPLASM OF UNSP SITE OF UNSPECIFIED FEMALE BREAST; C79.51 - SECONDARY MALIGNANT NEOPLASM OF BONE Status: Acute (2) Transaminitis Code(s): R74.01 - ELEVATION OF LEVELS OF LIVER TRANSAMINASE LEVELS Status: Acute (3) Hypertension Code(s): I10 - ESSENTIAL (PRIMARY) HYPERTENSION Status: Acute (4) Hyponatremia Code(s): E87.1 - HYPO-OSMOLALITY AND HYPONATREMIA Status: Acute - Plan plan for today 04/03 malnutrition, dietary recommending PPN, will discuss with Oncology, will continue IVF, will recheck sodium in am.awaiting bone biopsy. I resumed norco for pain. I resumed mucinex. Plan for today 04/04 will be going for radiation therapy will add morphine IV PRN replace K, and start PPN. palliative care consult, case operator and PT to evaluate for placement. plan for today 04/05 Palliative care consult appreciated. pain medication scheduled and PRN for better control. sodium is low, I added salt tabs and will recheck in am. as per dietary will decrease Clinimix to 55 cc.
[2020-04-05] MEDS ORDERED: D5W-AA 4.25% with LYTES 1,000 ML IV SCH (18:12)
[2020-04-05] MEDS: HYDROcodone/Acetaminophen 7.5/325 mg Tablet PO SCH (20:25)
[2020-04-05] MEDS: Melatonin 3 MG TAB PO SCH (20:25)
[2020-04-06 04:57] LABS: #Basophils 0.1 thou/uL (0.0-0.2); #Eosinphils 0.1 thou/uL (0.0-0.7); #Lymphocytes 2.3 thou/uL (1.20-3.40); #Monocytes 1.1 thou/uL (0.11-0.59); #Neutrophils 10.8 thou/uL (1.40-6.50); %Basophils 0.9 % (0.0-1.0); %Eosinophils 0.7 % (0.0-10.0); %Lymphocytes 15.7 % (21.0-51.0); %Monocytes 7.4 % (0.0-10.0); %Neutrophils 75.2 % (42.0-75.0); Anion Gap 13 mmol/L (10-20); BUN (Urea Nitrogen) 21 mg/dL (9.8-20.1); Calc. Creatinine Clearance 95 mL/min (70-130); Calcium 8.2 mg/dL (7.8-10.44); Carbon Dioxide 21 mmol/L (23-31); Chloride 90 mmol/L (98-107); Glucose 120 mg/dL (83-110); Mean Corpuscular HGB CONC 33.2 g/dL (32.0-36.0); Mean Corpuscular Hemoglobin 30.1 pg (27.0-31.0); Mean Corpuscular Volume 90.6 fL (78.0-98.0); Mean Platelet Volume 9.5 fL (7.4-10.4); Platelet Count 95 thou/uL (130-400); Potassium 4.2 mmol/L (3.5-5.1); Red Blood Cell (RBC) Count 3.97 mill/uL (4.20-5.40); Sodium 120 mmol/L (136-145); White Blood Cell (WBC) Count 14.4 thou/uL (4.8-10.8)
[2020-04-06] MEDS: HYDROcodone/Acetaminophen 5/325 mg Tablet PO PRN (06:04)
[2020-04-06] MEDS: Levothyroxine Sodium 112 MCG TAB PO SCH (06:04)
[2020-04-06] MEDS: guaiFENesin ER 600 MG TAB PO SCH ×2 (08:52→20:52)
[2020-04-06] MEDS: Dexamethasone 4 MG TAB PO SCH ×2 (08:52→15:58)
[2020-04-06] MEDS: Lisinopril 20 MG TAB PO SCH (08:53)
[2020-04-06] MEDS: Montelukast Sodium 10 mg Tablet PO SCH (08:53)
[2020-04-06] MEDS: HYDROcodone/Acetaminophen 7.5/325 mg Tablet PO SCH ×3 (08:54→20:52)
[2020-04-06] MEDS: Enoxaparin Sodium 40 MG/0.4 ML SYRINGE SC SCH (08:55)
[2020-04-06] MEDS: Ipratropium Bromide 0.03% Nasal Inhaler 30 ml Bottle EA NARE SCH ×4 (09:00→20:55)
[2020-04-06] MEDS ORDERED: Sodium Chloride 0.9% 1,000 ML IV SCH (09:00)
[2020-04-06] MEDS: Sodium Chloride 1 GM TAB PO SCH ×3 (09:21→20:52)
[2020-04-06] MEDS: Morphine 2 MG/ML VIAL SLOW IVP PRN (14:13)
[2020-04-06 18:15] LABS: Anion Gap 17 mmol/L (10-20); BUN (Urea Nitrogen) 20 mg/dL (9.8-20.1); Calc. Creatinine Clearance 90 mL/min (70-130); Calcium 8.3 mg/dL (7.8-10.44); Carbon Dioxide 21 mmol/L (23-31); Chloride 91 mmol/L (98-107); Glucose 125 mg/dL (83-110); Potassium 4.5 mmol/L (3.5-5.1); Sodium 124 mmol/L (136-145)
--- NOTE | 2020-04-06 20:48 | PDOC.HOSPP ---
- Subjective Encounter Date: 04/06/20 Subjective: feels well - Objective Vital Signs & Weight: Vital Signs (12 hours) Temp Pulse Resp BP BP Pulse Ox 04/06/20 19:57 98.1 F 99 16 133/81 95 04/06/20 08:53 150/72 H Weight Admit Weight 153 lb 4 oz Weight 153 lb 4 oz I&O: 04/05/20 04/06/20 04/07/20 06:59 06:59 06:59 Intake Total 3590 2915 1200 Output Total 2200 2050 400 Balance 1390 865 800 Result Diagrams: 04/06/20 04:05 04/06/20 17:47 Hospitalist ROS - Medication Medications: Active Medications Generic Name Dose Route Start Last Admin Trade Name Freq PRN Reason Stop Dose Admin Acetaminophen 650 mg 04/02/20 13:26 04/04/20 04:01 Acetaminophen 325 Mg Tab PO 650 mg Q4H PRN Administration Headache/Fever/Mild Pain (1-3) Hydrocodone Bitart/Acetaminophen 1 tab 04/03/20 20:08 04/06/20 06:04 Hydrocodone/Acetaminophen 5/325 Mg Tablet PO 1 tab Q6H PRN Administration .BREAKTHROUGH Pain Hydrocodone Bitart/Acetaminophen 1 tab 04/05/20 21:00 04/06/20 15:56 Hydrocodone/Acetaminophen 7.5/325 Mg Tablet PO 1 tab TID CANDE Administration Dexamethasone 4 mg 04/03/20 17:00 04/06/20 15:58 Dexamethasone 4 Mg Tab PO 4 mg BID-WM CANDE Administration Enoxaparin Sodium 40 mg 04/03/20 09:00 04/06/20 08:55 Enoxaparin Sodium 40 Mg/0.4 Ml Syringe SC Not Given 09 CANDE Guaifenesin 600 mg 04/03/20 21:00 04/06/20 08:52 Guaifenesin Er 600 Mg Tab PO 600 mg BID CANDE Administration Ipratropium [place] 0 ml 04/04/20 21:00 04/05/20 23:28 Ipratropium [place] 0.03% Nasal Inhaler 30 Ml Bottle EA NARE Not Given QID CANDE Levothyroxine Sodium 112 mcg 04/03/20 06:00 04/06/20 06:04 Levothyroxine Sodium 112 Mcg Tab PO 112 mcg 0600 CANDE Administration Lisinopril 20 mg 04/03/20 09:00 02/06/21 08:53 Lisinopril 20 Mg Tab PO 20 mg DAILY CANDE Administration Melatonin 3 mg 04/02/20 20:51 04/04/20 20:07 Melatonin 3 Mg Tab PO 3 mg HSPRN PRN Administration Insomnia Melatonin 3 mg 04/03/20 21:00 04/05/20 20:25 Melatonin 3 Mg Tab PO 3 mg QPM CANDE Administration Memantine 10 mg 04/03/20 09:00 04/06/20 08:52 Memantine Hcl 10 Mg Tab PO 10 mg DAILY CANDE Administration Montelukast Sodium 10 mg 04/03/20 09:00 04/06/20 08:53 Montelukast Sodium 10 Mg Tablet PO 10 mg DAILY CANDE Administration Morphine Sulfate 2 mg 04/04/20 12:17 04/06/20 14:13 Morphine 2 Mg/Ml Vial SLOW IVP 2 mg Q2H PRN Administration Severe Pain (7-10) Pantoprazole Sodium 40 mg 04/04/20 09:00 04/06/20 08:52 Pantoprazole 40 Mg Tab PO 40 mg DAILY CANDE Administration Sodium Chloride 1 gm 04/06/20 09:00 04/06/20 15:56 Sodium Chloride 1 Gm Tab PO 1 gm TID CANDE Administration Tramadol HCl 50 mg 04/02/20 14:16 04/03/20 16:26 Tramadol Hcl 50 Mg Tab PO 50 mg Q6H PRN Administration Moderate to Severe Pain (6-10) Hospitalist Exam Vitals: Vital Signs (12 hours) Temp Pulse Resp BP BP Pulse Ox 04/06/20 19:57 98.1 F 99 16 133/81 95 04/06/20 08:53 150/72 H Weight Admit Weight 153 lb 4 oz Weight 153 lb 4 oz General Appearance: NAD Eye: PERRL ENT: normocephalic atraumatic Neck: supple, symmetric Heart: RRR, no murmur Respiratory: CTAB, no wheezes Gastrointestinal: soft, non-tender Hosp A/P (1) Breast cancer metastasized to bone Code(s): C50.919 - MALIGNANT NEOPLASM OF UNSP SITE OF UNSPECIFIED FEMALE BREAST; C79.51 - SECONDARY MALIGNANT NEOPLASM OF BONE Status: Acute (2) Transaminitis Code(s): R74.01 - ELEVATION OF LEVELS OF LIVER TRANSAMINASE LEVELS Status: Acu te (3) Hypertension Code(s): I10 - ESSENTIAL (PRIMARY) HYPERTENSION Status: Acute (4) Hyponatremia Code(s): E87.1 - HYPO-OSMOLALITY AND HYPONATREMIA Status: Acute - Plan plan for today 04/03 malnutrition, dietary recommending PPN, will discuss with Oncology, will continue IVF, will recheck sodium in am.awaiting bone biopsy. I resumed norco for pain. I resumed mucinex. Plan for today 04/04 will be going for radiation therapy will add morphine IV PRN replace K, and start PPN. palliative care consult, insurance case manager and PT to evaluate for placement. plan for today 04/05 Palliative care consult appreciated. pain medication scheduled and PRN for better control. sodium is low, I added salt tabs and will recheck in am. as per dietary will decrease Clinimix to 55 cc. plan for today 04/06 Looking better today and eating more. her sodium today was critically low, since clinimix is hypotonic I stopped and restarted NS also inceased her salt tabs, her urine sodium is not low, later on her serum sodium increased nicely, I will recheck in am.
[2020-04-06] MEDS: Melatonin 3 MG TAB PO SCH (20:52)
[2020-04-07] MEDS: HYDROcodone/Acetaminophen 5/325 mg Tablet PO PRN ×2 (03:47→22:39)
[2020-04-07 04:22] LABS: Band 24 % (5-11); Eosinophils 1 % (0-10); Hemoglobin 12.2 g/dL (12.0-16.0); Lymphocytes 16 % (21-51); MDiff Complete? YES; Mean Corpuscular HGB CONC 31.3 g/dL (32.0-36.0); Mean Corpuscular Hemoglobin 28.3 pg (27.0-31.0); Mean Corpuscular Volume 90.5 fL (78.0-98.0); Mean Platelet Volume 9.4 fL (7.4-10.4); Metamyelocyte 4 % (0-0); Monocytes 7 % (0-10); Myelocyte 1 % (0-0); Neutrophil 47 % (42-75); Platelet Count 103 thou/uL (130-400); Platelet Morphology Comment Appears Decreased; RBC Distribution Width 15.4 % (11.5-14.5); Red Blood Cell (RBC) Count 4.32 mill/uL (4.20-5.40); White Blood Cell (WBC) Count 15.3 thou/uL (4.8-10.8)
[2020-04-07 04:32] LABS: Anion Gap 15 mmol/L (10-20); BUN (Urea Nitrogen) 24 mg/dL (9.8-20.1); Calc. Creatinine Clearance 92 mL/min (70-130); Calcium 8.6 mg/dL (7.8-10.44); Carbon Dioxide 22 mmol/L (23-31); Chloride 89 mmol/L (98-107); Glucose 109 mg/dL (83-110); Potassium 4.3 mmol/L (3.5-5.1); Sodium 122 mmol/L (136-145)
[2020-04-07] MEDS: Ipratropium Bromide 0.03% Nasal Inhaler 30 ml Bottle EA NARE SCH ×4 (08:33→21:04)
[2020-04-07] MEDS: guaiFENesin ER 600 MG TAB PO SCH ×2 (08:34→20:43)
[2020-04-07] MEDS: Dexamethasone 4 MG TAB PO SCH ×2 (08:34→16:18)
[2020-04-07] MEDS: Montelukast Sodium 10 mg Tablet PO SCH (08:34)
[2020-04-07] MEDS: Sodium Chloride 1 GM TAB PO SCH ×3 (08:34→20:43)
[2020-04-07] MEDS: Enoxaparin Sodium 40 MG/0.4 ML SYRINGE SC SCH (08:36)
[2020-04-07] MEDS: HYDROcodone/Acetaminophen 7.5/325 mg Tablet PO SCH ×3 (08:36→20:55)
[2020-04-07] MEDS: Lisinopril 20 MG TAB PO SCH (08:37)
--- NOTE | 2020-04-07 10:01 | CON ---
DATE OF CONSULTATION: REQUESTING PHYSICIAN: Dr. Sandhu. REASON FOR CONSULTATION: Hyponatremia. CONSULTING PHYSICIAN: Ganesh Barbour MD. IMPRESSION: Hyponatremia, query cause, syndrome of inappropriate antidiuretic hormone secretion. PLAN: 1. 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 2. Discontinue normal saline for now until ADH is completely ruled out or established. HISTORY OF PRESENT ILLNESS: History is that of 84-year-old female patient, who presented with generalized weakness and left hip pain. The patient recently sustained a fall with a left hip fracture. Over the course of hospitalization, the patient's sodium level has drifted down to 120, causing the need for renal consultation. PAST MEDICAL HISTORY: Significant for hypertension, dyslipidemia, breast cancer. MEDICATIONS: Reviewed as documented on [facility]. REVIEW OF SYSTEMS: As documented in the body of history. All other systems were reviewed and found not to be significantly related to present illness. PHYSICAL EXAMINATION: GENERAL: The patient noted with the following vital signs; temperature 98.1, pulse 99, respiratory rate of 16, O2 saturation 95%, blood pressure 133/81. HEENT: Unremarkable. CARDIOVASCULAR SYSTEM: First and second heart sounds were heard. RESPIRATORY SYSTEM: Clear to auscultation. DIGESTIVE SYSTEM: Revealed a benign abdomen. Positive bowel sounds. EXTREMITIES: No peripheral edema. SKIN: No new gross rash. LYMPHATICS: No peripheral lymphadenopathy. 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 Thank you for this consultation. We will follow with you. Job ID: [id number]
[2020-04-07] MEDS: Acetaminophen 325 MG TAB PO PRN ×2 (14:55→20:43)
[2020-04-07] MEDS ORDERED: Tolvaptan 15 MG TAB PO SCH (17:45)
--- NOTE | 2020-04-07 18:00 | PDOC.HOSPP ---
- Subjective Subjective: doing well, has no complaints - Objective Vital Signs & Weight: Vital Signs (12 hours) Temp Pulse Resp BP BP Pulse Ox 04/07/20 08:37 141/79 H 04/07/20 08:20 96 04/07/20 07:09 98.0 F 104 H 16 141/79 H 96 Weight Admit Weight 153 lb 4 oz Weight 153 lb 4 oz I&O: 04/06/20 04/07/20 04/08/20 06:59 06:59 06:59 Intake Total 2915 1500 Output Total 2050 1450 600 Balance 865 50 -600 Result Diagrams: 04/07/20 03:37 04/07/20 03:37 Hospitalist ROS - Medication Medications: Active Medications Generic Name Dose Route Start Last Admin Trade Name Freq PRN Reason Stop Dose Admin Acetaminophen 650 mg 04/02/20 13:26 04/07/20 14:55 Acetaminophen 325 Mg Tab PO 650 mg Q4H PRN Administration Headache/Fever/Mild Pain (1-3) Hydrocodone Bitart/Acetaminophen 1 tab 04/03/20 20:08 04/07/20 03:47 Hydrocodone/Acetaminophen 5/325 Mg Tablet PO 1 tab Q6H PRN Administration .BREAKTHROUGH Pain Hydrocodone Bitart/Acetaminophen 1 tab 04/05/20 21:00 04/07/20 14:55 Hydrocodone/Acetaminophen 7.5/325 Mg Tablet PO Not Given TID CANDE Dexamethasone 4 mg 04/03/20 17:00 04/07/20 16:18 Dexamethasone 4 Mg Tab PO 4 mg BID-WM CANDE Administration Enoxaparin Sodium 40 mg 04/03/20 09:00 04/07/20 08:36 Enoxaparin Sodium 40 Mg/0.4 Ml Syringe SC 40 mg 0900 CANDE Administration Guaifenesin 600 mg 04/03/20 21:00 04/07/20 08:34 Guaifenesin Er 600 Mg Tab PO 600 mg BID CANDE Administration Ipratropium [place] 0 ml 04/04/20 21:00 04/07/20 16:19 Ipratropium [place] 0.03% Nasal Inhaler 30 Ml Bottle EA NARE 2 spr QID CANDE Administration Levothyroxine Sodium 112 mcg 04/03/20 06:00 04/06/20 06:04 Levothyroxine Sodium 112 Mcg Tab PO 112 mcg 0600 CANDE Administration Lisinopril 20 mg 04/03/20 09:00 04/07/20 08:37 Lisinopril 20 Mg Tab PO 20 mg DAILY CANDE Administration Melatonin 3 mg 04/02/20 20:51 04/04/20 20:07 Melatonin 3 Mg Tab PO 3 mg HSPRN PRN Administration Insomnia Melatonin 3 mg 04/03/20 21:00 04/06/20 20:52 Melatonin 3 Mg Tab PO 3 mg QPM CANDE Administration Memantine 10 mg 04/03/20 09:00 04/07/20 08:34 Memantine Hcl 10 Mg Tab PO 10 mg DAILY CANDE Administration Montelukast Sodium 10 mg 04/03/20 09:00 04/07/20 08:34 Montelukast Sodium 10 Mg Tablet PO 10 mg DAILY CANDE Administration Morphine Sulfate 2 mg 04/04/20 12:17 04/06/20 14:13 Morphine 2 Mg/Ml Vial SLOW IVP 2 mg Q2H PRN Administration Severe Pain (7-10) Pantoprazole Sodium 40 mg 04/04/20 09:00 04/07/20 08:34 Pantoprazole 40 Mg Tab PO 40 mg DAILY CANDE Administration Sodium Chloride 1 gm 04/06/20 09:00 04/07/20 14:54 Sodium Chloride 1 Gm Tab PO 1 gm TID CANDE Administration Tramadol HCl 50 mg 04/02/20 14:16 04/03/20 16:26 Tramadol Hcl 50 Mg Tab PO 50 mg Q6H PRN Administration Moderate to Severe Pain (6-10) Hospitalist Exam Vitals: Vital Signs (12 hours) Temp Pulse Resp BP BP Pulse Ox 04/07/20 08:37 141/79 H 04/07/20 08:20 96 04/07/20 07:09 98.0 F 104 H 16 141/79 H 96 Weight Admit Weight 153 lb 4 oz Weight 153 lb 4 oz General Appearance: NAD Eye: PERRL ENT: normocephalic atraumatic Neck: supple, symmetric Heart: RRR, no murmur Respiratory: CTAB, no wheezes Gastrointestinal: soft, non-tender, non-distended Skin: normal turgor Hosp A/P (1) Breast cancer metastasized to bone Code(s): C50.919 - MALIGNANT NEOPLASM OF UNSP SITE OF UNSPECIFIED FEMALE BREAST; C79.51 - SECONDARY MALIGNANT NEOPLASM OF BONE Status: Acute (2) Transaminitis Code(s): R74.01 - ELEVATION OF LEVELS OF LIVER TRANSAMINASE LEVELS Status: Acute (3) Hypertension Code(s): I10 - ESSENTIAL (PRIMARY) HYPERTENSION Status: Acute (4) Hyponatremia Code(s): E87.1 - HYPO-OSMOLALITY AND HYPONATREMIA Status: Acute - Plan plan for today 04/03 malnutrition, dietary recommending PPN, will discuss with Oncology, will continue IVF, will recheck sodium in am.awaiting bone biopsy. I resumed norco for pain. I resumed mucinex. Plan for today 04/04 will be going for radiation therapy will add morphine IV PRN replace K, and start PPN. palliative care consult, case briefer and PT to evaluate for placement. plan for today 04/05 Palliative care consult appreciated. pain medication scheduled and PRN for better control. sodium is low, I added salt tabs and will recheck in am. as per dietary will decrease Clinimix to 55 cc. plan for today 04/06 Looking better today and eating more. her sodium today was critically low, since clinimix is hypotonic I stopped and restarted NS also inceased her salt tabs, her urine sodium is not low, later on her serum sodium increased nicely, I will recheck in am. 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
--- NOTE | 2020-04-07 18:45 | PRG ---
DATE OF SERVICE: 04/07/2020 SUBJECTIVE: The patient noted with the following vital signs. No new complaint. OBJECTIVE: VITAL SIGNS: Afebrile, temperature 98, pulse 104, respiratory rate of 16, O2 saturations of 96%, blood pressure 141/79. HEENT: Unremarkable. CARDIOVASCULAR SYSTEM: First and second heart sounds were heard. RESPIRATORY SYSTEM: Clear to auscultation. DIGESTIVE SYSTEM: Revealed a benign abdomen with positive bowel sounds. EXTREMITIES: No peripheral edema. SKIN: No new gross rash. LYMPHATICS: No peripheral lymphadenopathy. LABORATORY INVESTIGATION: Showed a sodium of 122. Urine osmolality showed and urine sodium of 56. IMPRESSION: Hyponatremia. Going by the urine chemistry, this is syndrome of inappropriate antidiuretic hormone. PLAN: 1. We will give this patient one time dose of Vaprisol and monitor the sodium level accordingly. 2. Further management to be dependent on the clinical course. Job ID: [id number]
[2020-04-07] MEDS: Melatonin 3 MG TAB PO SCH (20:43)
[2020-04-07] MEDS ORDERED: Senokot 8.6 MG TAB PO PRN (21:48)
[2020-04-07 22:23] LABS: Lactic Acid 2.3 mmol/L (0.5-2.2)
[2020-04-07 22:28] LABS: Anion Gap 16 mmol/L (10-20); BUN (Urea Nitrogen) 20 mg/dL (9.8-20.1); Calc. Creatinine Clearance 81 mL/min (70-130); Calcium 8.3 mg/dL (7.8-10.44); Carbon Dioxide 19 mmol/L (23-31); Chloride 91 mmol/L (98-107); Glucose 137 mg/dL (83-110); Magnesium 2.1 mg/dL (1.6-2.6); Potassium 4.4 mmol/L (3.5-5.1); Sodium 122 mmol/L (136-145)
[2020-04-07 22:33] LABS: Bacteria/HPF 4+ HPF (None Seen); Bilirubin Negative (Negative); Blood, Urine Negative (Negative); Clarity Turbid (Clear); Glucose, Urine (Dipstick) Normal (Negative); Ketone, Urine Negative (Negative); Leukocyte 250 Leu/uL (Negative); Nitrite Negative (Negative); Protein, Urine (Dipstick) 10 mg/dL (Neg-Trace); RBC/HPF 0-3 HPF (0-3); Renal Epithelial 0-3 HPF (None Seen); Specific Gravity, Urine 1.013 (1.002-1.036); Squamous Epithelial None Seen HPF (0-3); Urobilinogen Normal mg/dL (Less than 2); WBC/HPF 0-3 HPF (0-3); pH, Urine 6.5 (5.0-9.0)
[2020-04-07 22:36] LABS: Urine Culture Reflex Yes Yes
--- NOTE | 2020-04-07 22:56 | RAD ---
RADIOGRAPH CHEST 1 VIEW: DATE: 04/07/2020 TIME: 10:30 PM HISTORY: 84-year-old female with tachypnea COMPARISON: 04/02/2020 FINDINGS: Previously, there was a small focal patchy nodular ill-defined infiltrate-like density at left midlun g zone, perhaps representing subsegmental atelectasis. That is no longer visualized. Now, there is a subtle finding of mild reticular densities at left mid and lower lung zones, nonspeci fic. No consolidation or pulmonary edema. Right lung is relatively clear. Cardiac mediastinal silhouette is normal. No effacement of lateral costophrenic angles. IMPRESSION: 1. Mild, faint interstitial densities in the left mid and lower lung zones. Nonspecific. 2. Otherwise negative.
[2020-04-07] MEDS: Levothyroxine Sodium 112 MCG TAB PO SCH (23:03)
[2020-04-07] MEDS: cefTRIAXone\\ROCEPHIN 1 GM in Sodium Chloride 0.9% 100 ML IVPB SCH (23:32)
[2020-04-08] MEDS: Melatonin 3 MG TAB PO PRN ×2 (03:00→21:54)
[2020-04-08] MEDS: traMADol HCl 50 MG TAB PO PRN ×2 (03:17→12:29)
[2020-04-08] MEDS: Levothyroxine Sodium 112 MCG TAB PO SCH (04:53)
[2020-04-08] MEDS: Acetaminophen 325 MG TAB PO PRN (06:32)
[2020-04-08] MEDS: Montelukast Sodium 10 mg Tablet PO SCH (08:16)
[2020-04-08] MEDS: guaiFENesin ER 600 MG TAB PO SCH ×2 (08:17→20:30)
[2020-04-08] MEDS: Sodium Chloride 1 GM TAB PO SCH ×3 (08:17→20:30)
[2020-04-08] MEDS: Dexamethasone 4 MG TAB PO SCH ×2 (08:17→17:40)
[2020-04-08] MEDS: Ipratropium Bromide 0.03% Nasal Inhaler 30 ml Bottle EA NARE SCH ×4 (08:18→20:38)
[2020-04-08] MEDS: Enoxaparin Sodium 40 MG/0.4 ML SYRINGE SC SCH (08:18)
[2020-04-08] MEDS: HYDROcodone/Acetaminophen 7.5/325 mg Tablet PO SCH ×3 (08:19→20:30)
[2020-04-08] MEDS: Lisinopril 20 MG TAB PO SCH (08:20)
[2020-04-08 08:59] LABS: Hemoglobin 11.5 g/dL (12.0-16.0); Mean Corpuscular HGB CONC 32.7 g/dL (32.0-36.0); Mean Corpuscular Hemoglobin 30.2 pg (27.0-31.0); Mean Corpuscular Volume 92.3 fL (78.0-98.0); Mean Platelet Volume 9.1 fL (7.4-10.4); Platelet Count 92 thou/uL (130-400); RBC Distribution Width 15.9 % (11.5-14.5); Red Blood Cell (RBC) Count 3.79 mill/uL (4.20-5.40); White Blood Cell (WBC) Count 14.8 thou/uL (4.8-10.8)
[2020-04-08 09:25] LABS: Anion Gap 14 mmol/L (10-20); BUN (Urea Nitrogen) 21 mg/dL (9.8-20.1); Calc. Creatinine Clearance 84 mL/min (70-130); Calcium 8.3 mg/dL (7.8-10.44); Carbon Dioxide 24 mmol/L (23-31); Chloride 99 mmol/L (98-107); Glucose 90 mg/dL (83-110); Potassium 3.8 mmol/L (3.5-5.1); Sodium 133 mmol/L (136-145)
[2020-04-08 10:05] LABS: Band 25 % (5-11); Eosinophils 1 % (0-10); Lymphocytes 12 % (21-51); MDiff Complete? YES; Metamyelocyte 6 % (0-0); Monocytes 11 % (0-10); Myelocyte 2 % (0-0); Neutrophil 43 % (42-75); Nucleated RBC 1 % (0); Platelet Morphology Comment Appears Decreased; Polychromasia SLIGHT = 2-3 cells (100X) (0-2/hpf)
[2020-04-08] MEDS ORDERED: Bisacodyl 10 MG SUPP PR PRN (11:12)
[2020-04-08] MEDS: Morphine 2 MG/ML VIAL SLOW IVP PRN (14:04)
--- NOTE | 2020-04-08 14:19 | PDOC.MOPN ---
Interval History: still has back and hip pain. Day 3 xrt today - Vital Signs Vital Signs: Vital Signs (12 hours) Temp Pulse Resp BP BP Pulse Ox 04/08/20 08:20 137/68 04/08/20 08:00 98 F 92 20 137/68 100 04/08/20 03:37 94 L Weight Admit Weight 153 lb 4 oz Weight 153 lb 4 oz - Physical Exam General: Alert HEENT: Atraumatic, PERRLA, EOMI, Mucous membr. moist/pink Lungs: Clear to auscultation, Normal air movement Cardiovascular: Regular rate, Normal S1, Normal S2, No murmurs, Gallops, Rubs Abdomen: Normal bowel sounds, Soft, No tenderness, No hepatospenomegaly, No masses Neurological: Normal speech - Labs Result Diagrams: 04/08/20 08:24 04/08/20 08:24 Lab results: Laboratory Results - last 24 hr 04/08/20 08:24: WBC 14.8 H, RBC 3.79 L, Hgb 11.5 L, Hct 35.0 L, MCV 92.3, MCH 30.2, MCHC 32.7, RDW 15.9 H, Plt Count 92 L, MPV 9.1, Neutrophils % (Manual) 43, Band Neuts % (Manual) 25 H, Lymphocytes % (Manual) 12 L, Monocytes % (Manual) 11 H, Eosinophils % (Manual) 1, Metamyelocytes % (Man) 6 H, Myelocytes % 2 H, Lymp hocytes # Not Reportable, Nucleated RBCs # (Man) 1 H, Plt Morphology Comment Appears Decreased L, Polychromasia SLIGHT = 2-3 cells 04/08/20 08:24: Sodium 133 L, Potassium 3.8, Chloride 99, Carbon Dioxide 24, Anion Gap 14, BUN 21 H, Creatinine 0.57 L, Estimated GFR (MDRD) Greater than 90, Glucose 90, Calcium 8.3 04/07/20 21:59: D-Dimer 6.97 H 04/07/20 21:59: Lactic Acid 2.3 H 04/07/20 21:59: B-Natriuretic Peptide 16.4 04/07/20 21:59: Sodium 122 L, Potassium 4.4, Chloride 91 L, Carbon Dioxide 19 L, Anion Gap 16, BUN 20, Creatinine 0.59 L, Estimated GFR (MDRD) Greater than 90, Glucose 137 H, Calcium 8.3, Magnesium 2.1 04/07/20 21:22: Urine Color Yellow, Urine Clarity Turbid A, Urine pH 6.5, Ur Specific [place] 1.013, Urine Protein 10, Urine Glucose (UA) Normal, Urine Ketones Negative, Urine Blood Negative, Urine Nitrite Negative, Urine Bilirubin Negative, Urine Urobilinogen Normal, Ur Leukocyte Esterase 250 A, Urine RBC 0-3, Urine WBC 0-3, Ur Squamous Epith Cells None Seen, Ur Renal Epithelial Cell 0-3 A, Urine Bacteria 4+ A, Urine Culture Reflexed Yes A Status: lab reviewed by me A/P - Problem (1) Breast cancer metastasized to bone Current Visit: Yes Code(s): C50.919 - MALIGNANT NEOPLASM OF UNSP SITE OF UNSPECIFIED FEMALE BREAST; C79.51 - SECONDARY MALIGNANT NEOPLASM OF BONE Status: Acute - Plan Plan: Path confirmed ER/MA+ metastatic breast cancer discussed with Dr. Fischer, will use hormonal therapy. Need to follow-up out patient to discuss further continue XRT for pain norco dose increased.
--- NOTE | 2020-04-08 18:56 | PRG ---
DATE OF SERVICE: 04/08/2020 SUBJECTIVE: The patient is seen and examined. No new complaint. Noted with the following vital signs. OBJECTIVE: VITAL SIGNS: Afebrile, temperature 98, pulse 92, respiratory rate of 20, and blood pressure 137/68. HEENT: Unremarkable. CARDIOVASCULAR SYSTEM: First and second heart sounds were heard. RESPIRATORY SYSTEM: Clear to auscultation. EXTREMITIES: No peripheral edema. SKIN: No new gross rash. LYMPHATIC: No peripheral lymphadenopathy. IMPRESSION: Hyponatremia in the context of syndrome of inappropriate antidiuretic hormone secretion, responded remarkably to tolvaptan. PLAN: No further tolvaptan. We will continue to monitor the sodium and support accordingly. Job ID: [id number]
--- NOTE | 2020-04-08 19:40 | PDOC.HOSPP ---
- Subjective Encounter Date: 04/08/20 Subjective: Continues to do well - Objective Vital Signs & Weight: Vital Signs (12 hours) Temp Pulse Resp BP BP Pulse Ox 04/08/20 19:19 97.5 F L 92 18 138/63 98 04/08/20 15:43 80 130/59 L 04/08/20 08:20 137/68 04/08/20 08:00 98 F 92 20 137/68 100 Weight Admit Weight 153 lb 4 oz Weight 153 lb 4 oz I&O: 04/07/20 04/08/20 04/09/20 06:59 06:59 06:59 Intake Total 1500 1080 954 Output Total 1450 3100 1100 Balance 50 -2020 -146 Result Diagrams: 04/08/20 08:24 04/08/20 08:24 Hospitalist ROS - Medication Medications: Active Medications Generic Name Dose Route Start Last Admin Trade Name Freq PRN Reason Stop Dose Admin Acetaminophen 650 mg 04/02/20 13:26 04/08/20 06:32 Acetaminophen 325 Mg Tab PO 650 mg Q4H PRN Administration Headache/Fever/Mild Pain (1-3) Hydrocodone Bitart/Acetaminophen 1 tab 04/03/20 20:08 04/07/20 22:39 Hydrocodone/Acetaminophen 5/325 Mg Tablet PO 1 tab Q6H PRN Administration .BREAKTHROUGH Pain Hydrocodone Bitart/Acetaminophen 1 tab 04/05/20 21:00 04/08/20 15:44 Hydrocodone/Acetaminophen 7.5/325 Mg Tablet PO 1 tab TID CANDE Administration Dexamethasone 4 mg 04/03/20 17:00 04/08/20 17:40 Dexamethasone 4 Mg Tab PO 4 mg BID-WM CANDE Administration Enoxaparin Sodium 40 mg 04/03/20 09:00 04/08/20 08:18 Enoxaparin Sodium 40 Mg/0.4 Ml Syringe SC 40 mg 0900 CANDE Administration Guaifenesin 600 mg 04/03/20 21:00 04/08/20 08:17 Guaifenesin Er 600 Mg Tab PO 600 mg BID CANDE Administration Ceftriaxone Sodium 1 gm/ 100 mls @ 200 mls/hr 04/07/20 23:59 04/07/20 23:32 Sodium Chloride IVPB 100 mls Q24HR CANDE Administration Ipratropium [place] 0 ml 04/04/20 21:00 04/08/20 14:05 Ipratropium [place] 0.03% Nasal Inhaler 30 Ml Bottle EA NARE 2 spr QID CANDE Administration Levothyroxine Sodium 112 mcg 04/03/20 06:00 04/08/20 04:53 Levothyroxine Sodium 112 Mcg Tab PO 112 mcg 0600 CANDE Administration Lisinopril 20 mg 04/03/20 09:00 04/08/20 08:20 Lisinopril 20 Mg Tab PO 20 mg DAILY CANDE Administration Melatonin 3 mg 04/02/20 20:51 04/08/20 03:00 Melatonin 3 Mg Tab PO 3 mg HSPRN PRN Administration Insomnia Melatonin 3 mg 04/03/20 21:00 04/07/20 20:43 Melatonin 3 Mg Tab PO 3 mg QPM CANDE Administration Memantine 10 mg 04/03/20 09:00 04/08/20 08:16 Memantine Hcl 10 Mg Tab PO 10 mg DAILY CANDE Administration Montelukast Sodium 10 mg 04/03/20 09:00 04/08/20 08:16 Montelukast Sodium 10 Mg Tablet PO 10 mg DAILY CANDE Administration Morphine Sulfate 2 mg 04/04/20 12:17 04/08/20 14:04 Morphine 2 Mg/Ml Vial SLOW IVP 2 mg Q2H PRN Administration Severe Pain (7-10) Pantoprazole Sodium 40 mg 04/04/20 09:00 04/08/20 08:16 Pantoprazole 40 Mg Tab PO 40 mg DAILY CANDE Administration Sodium Chloride 1 gm 04/06/20 09:00 04/08/20 15:44 Sodium Chloride 1 Gm Tab PO 1 gm TID CANDE Administration Tramadol HCl 50 mg 04/02/20 14:16 04/08/20 12:29 Tramadol Hcl 50 Mg Tab PO 50 mg Q6H PRN Administration Moderate to Severe Pain (6-10) Hospitalist Exam Vitals: Vital Signs (12 hours) Temp Pulse Resp BP BP Pulse Ox 04/08/20 19:19 97.5 F L 92 18 138/63 98 04/08/20 15:43 80 130/59 L 04/08/20 08:20 137/68 04/08/20 08:00 98 F 92 20 137/68 100 Weight Admit Weight 153 lb 4 oz Weight 153 lb 4 oz Eye: PERRL, anicteric sclera ENT: normocephalic atraumatic Neck: supple, symmetric Heart: RRR, no murmur, no gallops Respiratory: CTAB, no wheezes, no rales Gastrointestinal: soft, non-tender Hosp A/P (1) Breast cancer metastasized to bone Code(s): C50.919 - MALIGNANT NEOPLASM OF UNSP SITE OF UNSPECIFIED FEMALE BREAST; C79.51 - SECONDARY MALIGNANT NEOPLASM OF BONE Status: Acute (2) Transaminitis Code(s): R74.01 - ELEVATION OF LEVELS OF LIVER TRANSAMINASE LEVELS Status: Acute (3) Hypertension Code(s): I10 - ESSENTIAL (PRIMARY) HYPERTENSION Status: Acute (4) Hyponatremia Code(s): E87.1 - HYPO-OSMOLALITY AND HYPONATREMIA Status: Acute - Plan plan for today 04/03 malnutrition, dietary recommending PPN, will discuss with Oncology, will continue IVF, will recheck sodium in am.awaiting bone biopsy. I resumed norco for pain. I resumed mucinex. Plan for today 04/04 will be going for radiation therapy will add morphine IV PRN replace K, and start PPN. palliative care consult, manager of case management and PT to evaluate for placement. plan for today 04/05 Palliative care consult appreciated. pain medication scheduled and PRN for better control. sodium is low, I added salt tabs and will recheck in am. as per dietary will decrease Clinimix to 55 cc. plan for today 04/06 Looking better today and eating more. her sodium today was critically low, since clinimix is hypotonic I stopped and restarted NS also increased her salt tabs, her urine sodium is not low, later on her serum sodium increased nicely, I will recheck in am. 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 Plan for today 04/08 She did receive Vaprisol and her sodium improved, will continue to recheck. She was confirmed asER/[place] positive metastatic breast cancer, further management as per oncology. She was constipated MiraLAX was started.
[2020-04-08] MEDS: Melatonin 3 MG TAB PO SCH (20:30)
[2020-04-08] MEDS: HYDROcodone/Acetaminophen 5/325 mg Tablet PO PRN (21:57)
[2020-04-08] MEDS: cefTRIAXone\\ROCEPHIN 1 GM in Sodium Chloride 0.9% 100 ML IVPB SCH (23:40)
[2020-04-09] MEDS: traMADol HCl 50 MG TAB PO PRN ×2 (02:28→15:53)
[2020-04-09] MEDS: HYDROcodone/Acetaminophen 5/325 mg Tablet PO PRN ×3 (04:04→20:20)
[2020-04-09] MEDS: Levothyroxine Sodium 112 MCG TAB PO SCH (04:05)
[2020-04-09 06:14] LABS: Anion Gap 13 mmol/L (10-20); BUN (Urea Nitrogen) 23 mg/dL (9.8-20.1); Calc. Creatinine Clearance 90 mL/min (70-130); Calcium 8.1 mg/dL (7.8-10.44); Carbon Dioxide 23 mmol/L (23-31); Chloride 99 mmol/L (98-107); Glucose 101 mg/dL (83-110); Sodium 131 mmol/L (136-145)
[2020-04-09] MEDS: Polyethylene Glycol 3350 17 GM Packet PO SCH (08:19)
[2020-04-09] MEDS: Enoxaparin Sodium 40 MG/0.4 ML SYRINGE SC SCH (08:19)
[2020-04-09] MEDS: Dexamethasone 4 MG TAB PO SCH ×2 (08:20→17:10)
[2020-04-09] MEDS: Sodium Chloride 1 GM TAB PO SCH ×3 (08:20→20:20)
[2020-04-09] MEDS: Lisinopril 20 MG TAB PO SCH (08:20)
[2020-04-09] MEDS: guaiFENesin ER 600 MG TAB PO SCH ×2 (08:20→20:20)
[2020-04-09] MEDS: Montelukast Sodium 10 mg Tablet PO SCH (08:20)
[2020-04-09] MEDS: fentaNYL 50 mcg/hour Patch TD SCH (08:20)
--- NOTE | 2020-04-09 12:00 | PDOC.HOSPP ---
- Subjective Encounter Date: 04/09/20 Subjective: Appears well in no acute distress - Objective Vital Signs & Weight: Vital Signs (12 hours) Temp Pulse Resp BP BP Pulse Ox 04/09/20 08:20 137/68 04/09/20 08:00 98.7 F 89 18 159/80 H 98 04/09/20 02:47 98 Weight Admit Weight 153 lb 4 oz Weight 153 lb 4 oz I&O: 04/08/20 04/09/20 04/10/20 06:59 06:59 06:59 Intake Total 1080 1474 Output Total 3100 1650 Balance -[id number] Result Diagrams: 04/08/20 08:24 04/09/20 05:09 Hospitalist ROS - Medication Medications: Active Medications Generic Name Dose Route Start Last Admin Trade Name Freq PRN Reason Stop Dose Admin Acetaminophen 650 mg 04/02/20 13:26 04/08/20 06:32 Acetaminophen 325 Mg Tab PO 650 mg Q4H PRN Administration Headache/Fever/Mild Pain (1-3) Hydrocodone Bitart/Acetaminophen 1 tab 04/03/20 20:08 04/09/20 04:04 Hydrocodone/Acetaminophen 5/325 Mg Tablet PO 1 tab Q6H PRN Administration .BREAKTHROUGH Pain Bisacodyl 10 mg 04/08/20 11:12 04/09/20 11:17 Bisacodyl 10 Mg Supp [place] 10 mg DAILYPRN PRN Administration Constipation Dexamethasone 4 mg 04/03/20 17:00 04/09/20 08:20 Dexamethasone 4 Mg Tab PO 4 mg BID-WM CANDE Administration Enoxaparin Sodium 40 mg 04/03/20 09:00 04/09/20 08:19 Enoxaparin Sodium 40 Mg/0.4 Ml Syringe SC 40 mg 0900 CANDE Administration Fentanyl 50 mcg 04/09/20 09:00 04/09/20 08:20 Fentanyl 50 Mcg/Hour Patch TD 50 mcg Q3D CANDE Administration Guaifenesin 600 mg 04/03/20 21:00 04/09/20 08:20 Guaifenesin Er 600 Mg Tab PO 600 mg BID CANDE Administration Ceftriaxone Sodium 1 gm/ 100 mls @ 200 mls/hr 04/07/20 23:59 04/08/20 23:40 Sodium Chloride IVPB 100 mls Q24HR CANDE Administration Ipratropium [place] 0 ml 04/04/20 21:00 04/08/20 20:38 Ipratropium [place] 0.03% Nasal Inhaler 30 Ml Bottle EA NARE 2 spr QID CANDE Administration Levothyroxine Sodium 112 mcg 04/03/20 06:00 04/09/20 04:05 Levothyroxine Sodium 112 Mcg Tab PO 112 mcg 0600 CANDE Administration Lisinopril 20 mg 04/03/20 09:00 04/09/20 08:20 Lisinopril 20 Mg Tab PO 20 mg DAILY CANDE Administration Melatonin 3 mg 04/02/20 20:51 04/08/20 21:54 Melatonin 3 Mg Tab PO 3 mg HSPRN PRN Administration Insomnia Melatonin 3 mg 04/03/20 21:00 04/08/20 20:30 Melatonin 3 Mg Tab PO 3 mg QPM CANDE Administration Memantine 10 mg 04/03/20 09:00 04/09/20 08:20 Memantine Hcl 10 Mg Tab PO 10 mg DAILY CANDE Administration Montelukast Sodium 10 mg 04/03/20 09:00 04/09/20 08:20 Montelukast Sodium 10 Mg Tablet PO 10 mg DAILY CANDE Administration Morphine Sulfate 2 mg 04/04/20 12:17 04/08/20 14:04 Morphine 2 Mg/Ml Vial SLOW IVP 2 mg Q2H PRN Administration Severe Pain (7-10) Pantoprazole Sodium 40 mg 04/04/20 09:00 04/09/20 08:21 Pantoprazole 40 Mg Tab PO 40 mg DAILY CANDE Administration Polyethylene Glycol 17 gm 04/09/20 09:00 04/09/20 08:19 Polyethylene Glycol 3350 17 Gm Packet PO 17 gm DAILY CANDE Administration Sodium Chloride 10 ml 04/02/20 13:26 04/09/20 08:20 Flush - Normal Saline 10 Ml Syringe IVF 10 ml PRN PRN Administration Saline Flush Sodium Chloride 1 gm 04/06/20 09:00 04/09/20 08:20 Sodium Chloride 1 Gm Tab PO 1 gm TID CANDE Administration Tramadol HCl 50 mg 04/02/20 14:16 04/09/20 02:28 Tramadol Hcl 50 Mg Tab PO 50 mg Q6H PRN Administration Moderate to Severe Pain (6-10) Hospitalist Exam Vitals: Vital Signs (12 hours) Temp Pulse Resp BP BP Pulse Ox 04/09/20 08:20 137/68 04/09/20 08:00 98.7 F 89 18 159/80 H 98 04/09/20 02:47 98 Weight Admit Weight 153 lb 4 oz Weight 153 lb 4 oz General Appearance: NAD, awake alert Eye: PERRL, anicteric sclera ENT: normocephalic atraumatic, no oropharyngeal lesions Neck: supple, symmetric, no JVD Heart: RRR, no murmur, no gallops Respiratory: CTAB, no wheezes Hosp A/P (1) Breast cancer metastasized to bone Code(s): C50.919 - MALIGNANT NEOPLASM OF UNSP SITE OF UNSPECIFIED FEMALE BREAST; C79.51 - SECONDARY MALIGNANT NEOPLASM OF BONE Status: Acute (2) Transaminitis Code(s): R74.01 - ELEVATION OF LEVELS OF LIVER TRANSAMINASE LEVELS Status: Acute (3) Hypertension Code(s): I10 - ESSENTIAL (PRIMARY) HYPERTENSION Status: Acute (4) Hyponatremia Code(s): E87.1 - HYPO-OSMOLALITY AND HYPONATREMIA Status: Acute - Plan plan for today 04/03 malnutrition, dietary recommending PPN, will discuss with Oncology, will continue IVF, will recheck sodium in am.awaiting bone biopsy. I resumed norco for pain. I resumed mucinex. Plan for today 04/04 will be going for radiation therapy will add morphine IV PRN replace K, and start PPN. palliative care consult, case aide and PT to evaluate for placement. plan for today 04/05 Palliative care consult appreciated. pain medication scheduled and PRN for better control. sodium is low, I added salt tabs and will recheck in am. as per dietary will decrease Clinimix to 55 cc. plan for today 04/06 Looking better today and eating more. her sodium today was critically low, since clinimix is hypotonic I stopped and restarted NS also increased her salt tabs, her urine sodium is not low, later on her serum sodium increased nicely, I will recheck in am. 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 Plan for today 04/08 She did receive Vaprisol and her sodium improved, will continue to recheck. She was confirmed asER/[place] positive metastatic breast cancer, further management as per oncology. She was constipated MiraLAX was started. Plan for today 04/09 Patient has been complaining that her pain is controlled to a certain extent and that the effect of the scheduled [place] wears off at some point, I will stop the scheduled [place] and start her on a fentanyl patch for more sustained pain control, the dose to be adjusted according to her response. Her sodium dropped a bit today we will continue with salt tablets and recheck in a.m. Her urine culture positive for E. coli she continues to be on Rocephin. She continues to receive radiation therapy.
[2020-04-09] MEDS: Morphine 2 MG/ML VIAL SLOW IVP PRN ×2 (14:30→18:03)
[2020-04-09] MEDS: Ipratropium Bromide 0.03% Nasal Inhaler 30 ml Bottle EA NARE SCH ×2 (18:46→20:19)
--- NOTE | 2020-04-09 18:56 | PRG ---
DATE OF SERVICE: 04/09/2020 OBJECTIVE: VITAL SIGNS: The patient is seen, noted with the following vital signs; afebrile, temperature 98.7, pulse 89, respiratory rate of 18, blood pressure 137/68. O2 saturation of 98%. HEENT: Unremarkable. CARDIOVASCULAR SYSTEM: First and second heart sound were heard. RESPIRATORY SYSTEM: Clear to auscultation. DIGESTIVE SYSTEM: Revealed a benign abdomen. EXTREMITIES: No peripheral edema. SKIN: No new gross rash. LYMPHATICS: No peripheral lymphadenopathy. LABORATORY INVESTIGATION: Showed a sodium of 131, creatinine 0.53. IMPRESSION: 1. Hyponatremia in the context of syndrome of inappropriate secretion of antidiuretic hormone. 2. Syndrome of inappropriate secretion of antidiuretic hormone. PLAN: 1. Continue current renal supportive measures. 2. The patient is to be on high-protein diet. 3. Further management to be dependent on the clinical course. Job ID: [id number]
[2020-04-09] MEDS: Melatonin 3 MG TAB PO SCH (20:20)
[2020-04-09] MEDS: cefTRIAXone\\ROCEPHIN 1 GM in Sodium Chloride 0.9% 100 ML IVPB SCH (23:37)
[2020-04-10] MEDS: Levothyroxine Sodium 112 MCG TAB PO SCH (04:48)
[2020-04-10] MEDS: HYDROcodone/Acetaminophen 5/325 mg Tablet PO PRN (04:48)
[2020-04-10 04:50] LABS: Anion Gap 12 mmol/L (10-20); BUN (Urea Nitrogen) 15 mg/dL (9.8-20.1); Calc. Creatinine Clearance 95 mL/min (70-130); Carbon Dioxide 24 mmol/L (23-31); Chloride 97 mmol/L (98-107); Glucose 97 mg/dL (83-110); Potassium 4.2 mmol/L (3.5-5.1); Sodium 129 mmol/L (136-145)
[2020-04-10] MEDS ORDERED: Calcium Carbonate 500 MG ChewTAB PO PRN (07:34)
[2020-04-10] MEDS ORDERED: Cepastat Lozenges 1 LOZ PO PRN (07:34)
[2020-04-10] MEDS ORDERED: Bisacodyl 10 MG SUPP PR PRN (07:34)
[2020-04-10] MEDS ORDERED: Loperamide HCl 2 MG CAP PO PRN (07:34)
[2020-04-10] MEDS ORDERED: Ondansetron PF 4 MG/2 ML Vial IVP PRN (07:34)
[2020-04-10] MEDS ORDERED: Loratadine 10 MG TAB PO PRN (07:34)
[2020-04-10] MEDS ORDERED: hydrALAZINE 20 MG/ML VIAL SLOW IVP PRN (07:34)
[2020-04-10] MEDS ORDERED: Ondansetron ODT 4 MG TAB SL PRN (07:34)
[2020-04-10] MEDS ORDERED: Benzonatate 100 MG CAP PO PRN (07:35)
[2020-04-10] MEDS: Dexamethasone 4 MG TAB PO SCH ×2 (08:07→17:12)
[2020-04-10] MEDS: Enoxaparin Sodium 40 MG/0.4 ML SYRINGE SC SCH (08:07)
[2020-04-10] MEDS: guaiFENesin ER 600 MG TAB PO SCH ×2 (08:08→21:39)
[2020-04-10] MEDS: Ipratropium Bromide 0.03% Nasal Inhaler 30 ml Bottle EA NARE SCH ×4 (08:09→21:39)
[2020-04-10] MEDS: Lisinopril 20 MG TAB PO SCH (08:09)
[2020-04-10] MEDS: Montelukast Sodium 10 mg Tablet PO SCH (08:10)
[2020-04-10] MEDS: Sodium Chloride 1 GM TAB PO SCH ×3 (08:12→21:39)
[2020-04-10] MEDS: Polyethylene Glycol 3350 17 GM Packet PO SCH ×3 (08:12→21:39)
[2020-04-10] MEDS: traMADol HCl 50 MG TAB PO PRN (11:32)
--- NOTE | 2020-04-10 11:38 | PDOC.HOSPP ---
- Subjective Encounter Date: 04/10/20 Encounter Time: 07:00 Subjective: Patient seen and examined bedside today, her is present bedside, patient is physically very weak, she was using 1 L nasal cannula oxygen and she has Clifford catheter in place, she has not ambulated yet, she had one bowel movement yesterday after suppository, her pain is controlled with the current pain medicine regimen - Objective Vital Signs & Weight: Vital Signs (12 hours) Temp Pulse Resp BP BP Pulse Ox 04/10/20 08:09 137/68 04/10/20 08:00 98.7 F 94 16 134/61 91 L Weight Admit Weight 153 lb 4 oz Weight 153 lb 4 oz I&O: 04/09/20 04/10/20 04/11/20 06:59 06:59 06:59 Intake Total 1474 2100 Output Total 1650 1950 Balance -176 150 Result Diagrams: 04/08/20 08:24 04/10/20 04:19 Hospitalist ROS - Review of Systems Constitutional: reports: weakness, malaise. denies: fever, chills, sweats, other Respiratory: denies: cough, dry, shortness of breath, hemoptysis, SOB with excertion, pleuritic pain, sputum, wheezing, other Cardiovascular: denies: chest pain, palpitations, orthopnea, paroxysmal noc. dyspnea, edema, light headedness, other Gastrointestinal: denies: nausea, vomiting, abdominal pain, diarrhea, consti pation, melena, hematochezia, other Genitourinary: reports: retention. denies: dysuria, frequency, incontinence, hematuria, other Musculoskeletal: reports: leg pain. denies: neck pain, shoulder pain, arm pain, back pain, hand pain, foot pain, other - Medication Medications: Active Medications Generic Name Dose Route Start Last Admin Trade Name Freq PRN Reason Stop Dose Admin Acetaminophen 650 mg 04/02/20 13:26 04/08/20 06:32 Acetaminophen 325 Mg Tab PO 650 mg Q4H PRN Administration Headache/Fever/Mild Pain (1-3) Hydrocodone Bitart/Acetaminophen 1 tab 04/03/20 20:08 04/10/20 04:48 Hydrocodone/Acetaminophen 5/325 Mg Tablet PO 1 tab Q6H PRN Administration .BREAKTHROUGH Pain Dexamethasone 4 mg 04/03/20 17:00 04/10/20 08:07 Dexamethasone 4 Mg Tab PO 4 mg BID-WM CANDE Administration Enoxaparin Sodium 40 mg 04/03/20 09:00 04/10/20 08:07 Enoxaparin Sodium 40 Mg/0.4 Ml Syringe SC 40 mg 0900 CANDE Administration Fentanyl 50 mcg 04/09/20 09:00 04/09/20 08:20 Fentanyl 50 Mcg/Hour Patch TD 50 mcg Q3D CANDE Administration Guaifenesin 600 mg 04/03/20 21:00 04/10/20 08:08 Guaifenesin Er 600 Mg Tab PO 600 mg BID CANDE Administration Ceftriaxone Sodium 1 gm/ 100 mls @ 200 mls/hr 04/07/20 23:59 04/09/20 23:37 Sodium Chloride IVPB 100 mls Q24HR CANDE Administration Ipratropium [place] 0 ml 04/04/20 21:00 04/10/20 08:09 Ipratropium [place] 0.03% Nasal Inhaler 30 Ml Bottle EA NARE 2 spr QID CANDE Administration Levothyroxine Sodium 112 mcg 04/03/20 06:00 04/10/20 04:48 Levothyroxine Sodium 112 Mcg Tab PO 112 mcg 0600 CANDE Administration Lisinopril 20 mg 04/03/20 09:00 04/10/20 08:09 Lisinopril 20 Mg Tab PO 20 mg DAILY CANDE Administration Melatonin 3 mg 04/02/20 20:51 04/08/20 21:54 Melatonin 3 Mg Tab PO 3 mg HSPRN PRN Administration Insomnia Melatonin 3 mg 04/03/20 21:00 04/09/20 20:20 Melatonin 3 Mg Tab PO 3 mg QPM CANDE Administration Memantine 10 mg 04/03/20 09:00 04/10/20 08:10 Memantine Hcl 10 Mg Tab PO 10 mg DAILY CANDE Administration Montelukast Sodium 10 mg 04/03/20 09:00 04/10/20 08:10 Montelukast Sodium 10 Mg Tablet PO 10 mg DAILY CANDE Administration Morphine Sulfate 2 mg 04/04/20 12:17 04/09/20 18:03 Morphine 2 Mg/Ml Vial SLOW IVP 2 mg Q2H PRN Administration Severe Pain (7-10) Pantoprazole Sodium 40 mg 04/04/20 09:00 04/10/20 08:11 Pantoprazole 40 Mg Tab PO 40 mg DAILY CANDE Administration Polyethylene Glycol 17 gm 04/10/20 09:00 04/10/20 08:21 Polyethylene Glycol 3350 17 Gm Packet PO Not Given BID CANDE Sodium Chloride 10 ml 04/02/20 13:26 04/09/20 08:20 Flush - Normal Saline 10 Ml Syringe IVF 10 ml PRN PRN Administration Saline Flush Sodium Chloride 1 gm 04/06/20 09:00 04/10/20 08:12 Sodium Chloride 1 Gm Tab PO 1 gm TID CANDE Administration Tramadol HCl 50 mg 04/02/20 14:16 04/10/20 11:32 Tramadol Hcl 50 Mg Tab PO 50 mg Q6H PRN Administration Moderate to Severe Pain (6-10) Hospitalist Exam Vitals: Vital Signs (12 hours) Temp Pulse Resp BP BP Pulse Ox 04/10/20 08:09 137/68 04/10/20 08:00 98.7 F 94 16 134/61 91 L Weight Admit Weight 153 lb 4 oz Weight 153 lb 4 oz General Appearance: NAD, awake alert, ill appearing Eye: PERRL, anicteric sclera ENT: normocephalic atraumatic, no oropharyngeal lesions Neck: supple, symmetric, no JVD, no thyromegaly Heart: RRR, no murmur, no gallops, no rubs Respiratory: no wheezes, no rales, no ronchi Respiratory - other findings: [place], Gastrointestinal: soft, non-tender, non-distended, normal bowel sounds Gastrointestinal - other findings: Clifford catheter in place Extremities: no cyanosis, no clubbing Skin: normal turgor, no lesions Neurological: no focal deficits Hosp A/P - Plan old records reviewed/req, plan discussed w/ family, clifford catheter, continue antibiotics, PT/OT, social human services assistants Urinary tract infection due to E. 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, patient is on dexamethasone, fentanyl patch working very well for her, will continue [place] and morphine for breakthrough pain Constipation likely due to pain medication, continue stool softener as needed Physical deconditioning patient is evaluated by PT OT and will need senior care home, social work needs to work on that as well Metastatic breast cancer patient is getting radiation therapy for bone metastasis, oncology following Hypertension, continue lisinopril 20 mg daily Hypothyroidism continue levothyroxine as per home dosage DVT prophylaxis continue Lovenox GI prophylaxis continue Protonix Discharge planning based on oncology recommendation and social work
[2020-04-10] MEDS: Morphine 2 MG/ML VIAL SLOW IVP PRN (14:07)
--- NOTE | 2020-04-10 18:31 | PRG ---
DATE OF SERVICE: 04/10/2020 OBJECTIVE: VITAL SIGNS: The patient is noted with the following vital signs; afebrile, temperature 98.5, pulse 90, respiratory rate of 18, O2 saturation of 96%, blood pressure 111/56. HEENT: Unremarkable. CARDIOVASCULAR SYSTEM: First and second heart sounds were heard. RESPIRATORY SYSTEM: Clear to auscultation. DIGESTIVE SYSTEM: Revealed a benign abdomen with positive bowel sounds. EXTREMITIES: No peripheral edema. SKIN: No new gross rash. LYMPHATICS: No peripheral lymphadenopathy. LABORATORY INVESTIGATION: Showed a sodium of 129, creatinine of 0.5. IMPRESSION: 1. Hyponatremia in the context of syndrome of inappropriate secretion of antidiuretic hormone. 2. Syndrome of inappropriate secretion of antidiuretic hormone. PLAN: 1. Continue to monitor this sodium level accordingly. If sodium begins to drift down further, we will re-initiate tolvaptan on this patient. 2. Further management to be dependent on the clinical course. Meanwhile, the patient to be encouraged to increase protein intake in the way of animal meat. Job ID: [id number]
[2020-04-10] MEDS: Melatonin 3 MG TAB PO SCH (21:39)
[2020-04-10] MEDS: cefTRIAXone\\ROCEPHIN 1 GM in Sodium Chloride 0.9% 100 ML IVPB SCH (23:18)
[2020-04-11] MEDS: Melatonin 3 MG TAB PO PRN ×2 (01:14→21:05)
[2020-04-11] MEDS: Levothyroxine Sodium 112 MCG TAB PO SCH (06:01)
[2020-04-11 06:17] LABS: ALT (SGPT) 114 U/L (8-55); AST (SGOT) 77 U/L (5-34); Albumin 2.6 g/dL (3.4-4.8); Alkaline Phosphatase 1044 U/L (40-110); Anion Gap 14 mmol/L (10-20); BUN (Urea Nitrogen) 16 mg/dL (9.8-20.1); Bilirubin, Total 0.4 mg/dL (0.2-1.2); Calc. Creatinine Clearance 97 mL/min (70-130); Calcium 8.1 mg/dL (7.8-10.44); Carbon Dioxide 22 mmol/L (23-31); Chloride 96 mmol/L (98-107); Globulin 2.5 g/dL (2.4-3.5); Glucose 103 mg/dL (83-110); Potassium 4.4 mmol/L (3.5-5.1); Protein, Total 5.1 g/dL (5.8-8.1); Sodium 128 mmol/L (136-145)
[2020-04-11 06:21] LABS: Band 15 % (5-11); Hemoglobin 10.1 g/dL (12.0-16.0); Lymphocytes 15 % (21-51); MDiff Complete? YES; Mean Corpuscular HGB CONC 31.8 g/dL (32.0-36.0); Mean Corpuscular Hemoglobin 29.6 pg (27.0-31.0); Mean Corpuscular Volume 93.2 fL (78.0-98.0); Mean Platelet Volume 9.3 fL (7.4-10.4); Metamyelocyte 4 % (0-0); Monocytes 7 % (0-10); Myelocyte 6 % (0-0); Neutrophil 53 % (42-75); Platelet Count 101 thou/uL (130-400); Platelet Morphology Comment Appears Decreased; RBC Distribution Width 16.1 % (11.5-14.5); Red Blood Cell (RBC) Count 3.43 mill/uL (4.20-5.40); White Blood Cell (WBC) Count 13.8 thou/uL (4.8-10.8)
[2020-04-11] MEDS: Cyanocobalamin (Vitamin B-12) 1,000 MCG TAB PO SCH (08:44)
[2020-04-11] MEDS: Multivitamin W/ Minerals 1 TAB PO SCH (08:44)
[2020-04-11] MEDS: Sodium Chloride 1 GM TAB PO SCH ×3 (08:44→20:49)
[2020-04-11] MEDS: Dexamethasone 4 MG TAB PO SCH ×2 (08:45→17:12)
[2020-04-11] MEDS: Folic Acid 1 MG TAB PO SCH (08:45)
[2020-04-11] MEDS: Lisinopril 20 MG TAB PO SCH (08:45)
[2020-04-11] MEDS: Montelukast Sodium 10 mg Tablet PO SCH (08:45)
[2020-04-11] MEDS: Enoxaparin Sodium 40 MG/0.4 ML SYRINGE SC SCH (08:46)
[2020-04-11] MEDS: Polyethylene Glycol 3350 17 GM Packet PO SCH ×2 (08:46→20:49)
[2020-04-11] MEDS: Fluticasone Propionate Nasal Spray 16 gm Bottle NASAL SCH (09:50)
[2020-04-11] MEDS: Acetaminophen 325 MG TAB PO PRN ×2 (10:01→23:38)
--- NOTE | 2020-04-11 11:58 | PDOC.HOSPP ---
- Subjective Encounter Date: 04/11/20 Encounter Time: 07:00 Subjective: Patient is present bedside today, per him she is okay, her pain is controlled, but she has not ambulated at all - Objective Vital Signs & Weight: Vital Signs (12 hours) Temp Pulse Resp BP BP Pulse Ox 04/11/20 08:45 134/69 04/11/20 08:00 99.2 F 93 12 135/69 96 04/11/20 04:00 97.9 F Weight Admit Weight 153 lb 4 oz Weight 153 lb 4 oz I&O: 04/10/20 04/11/20 04/12/20 06:59 06:59 06:59 Intake Total 2100 1550 Output Total 1950 2075 Balance 150 -525 Result Diagrams: 04/11/20 05:23 04/11/20 05:23 Hospitalist ROS - Review of Systems Constitutional: reports: weakness, malaise. denies: fever, chills, sweats, other ENT: denies: ear pain, ear discharge, nose pain, nose discharge, nose congestion, mouth pain, mouth swelling, throat pain, throat swelling, other Respiratory: denies: cough, dry, shortness of breath, hemoptysis, SOB with e xcertion, pleuritic pain, sputum, wheezing, other Cardiovascular: denies: chest pain, palpitations, orthopnea, paroxysmal noc. dyspnea, edema, light headedness, other Gastrointestinal: denies: nausea, vomiting, abdominal pain, diarrhea, constipation, melena, hematochezia, other Genitourinary: denies: dysuria, frequency, incontinence, hematuria, retention, other - Medication Medications: Active Medications Generic Name Dose Route Start Last Admin Trade Name Freq PRN Reason Stop Dose Admin Acetaminophen 650 mg 04/02/20 13:26 04/11/20 10:01 Acetaminophen 325 Mg Tab PO 650 mg Q4H PRN Administration Headache/Fever/Mild Pain (1-3) Hydrocodone Bitart/Acetaminophen 1 tab 04/03/20 20:08 04/10/20 04:48 Hydrocodone/Acetaminophen 5/325 Mg Tablet PO 1 tab Q6H PRN Administration .BREAKTHROUGH Pain Cyanocobalamin 1,000 mcg 04/11/20 09:00 04/11/20 08:44 Cyanocobalamin (Vitamin B-12) 1,000 Mcg Tab PO 1,000 mcg DAILY CANDE Administration Dexamethasone 4 mg 04/03/20 17:00 04/11/20 08:45 Dexamethasone 4 Mg Tab PO 4 mg BID-WM CANDE Administration Enoxaparin Sodium 40 mg 04/03/20 09:00 04/11/20 08:46 Enoxaparin Sodium 40 Mg/0.4 Ml Syringe SC 40 mg 0900 CANDE Administration Fentanyl 50 mcg 04/09/20 09:00 04/09/20 08:20 Fentanyl 50 Mcg/Hour Patch TD 50 mcg Q3D CANDE Administration Fluticasone Propionate 0 gm 04/11/20 09:00 04/11/20 09:50 Fluticasone Propionate Nasal [place] 16 Gm Bottle NASAL 2 sprays DAILY CANDE Administration Folic Acid 1 mg 04/11/20 09:00 04/11/20 08:45 Folic Acid 1 Mg Tab PO 1 mg DAILY CANDE Administration Ceftriaxone Sodium 1 gm/ 100 mls @ 200 mls/hr 04/07/20 23:59 04/10/20 23:18 Sodium Chloride IVPB 100 mls Q24HR CANDE Administration Iron/Minerals/Multivitamins 1 tab 04/11/20 09:00 04/11/20 08:44 Multivitamin W/ Minerals 1 Tab PO 1 tab DAILY CANDE Administration Levothyroxine Sodium 112 mcg 04/03/20 06:00 04/11/20 06:01 Levothyroxine Sodium 112 Mcg Tab PO 112 mcg 0600 CANDE Administration Lisinopril 20 mg 04/03/20 09:00 04/11/20 08:45 Lisinopril 20 Mg Tab PO 20 mg DAILY CANDE Administration Melatonin 3 mg 04/02/20 20:51 04/11/20 01:14 Melatonin 3 Mg Tab PO 3 mg HSPRN PRN Administration Insomnia Memantine 10 mg 04/03/20 09:00 04/11/20 08:45 Memantine Hcl 10 Mg Tab PO 10 mg DAILY CANDE Administration Montelukast Sodium 10 mg 04/03/20 09:00 04/11/20 08:45 Montelukast Sodium 10 Mg Tablet PO 10 mg DAILY ACNDE Administration Morphine Sulfate 2 mg 04/04/20 12:17 04/10/20 14:07 Morphine 2 Mg/Ml Vial SLOW IVP 2 mg Q2H PRN Administration Severe Pain (7-10) Pantoprazole Sodium 40 mg 04/04/20 09:00 04/11/20 08:45 Pantoprazole 40 Mg Tab PO 40 mg DAILY CANDE Administration Polyethylene Glycol 17 gm 04/10/20 09:00 04/11/20 08:46 Polyethylene Glycol 3350 17 Gm Packet PO 17 gm BID CANDE Administration Sodium Chloride 10 ml 04/02/20 13:26 04/09/20 08:20 Flush - Normal Saline 10 Ml Syringe IVF 10 ml PRN PRN Administration Saline Flush Sodium Chloride 1 gm 04/06/20 09:00 04/11/20 08:44 Sodium Chloride 1 Gm Tab PO 1 gm TID CANDE Administration Tramadol HCl 50 mg 04/02/20 14:16 04/10/20 11:32 Tramadol Hcl 50 Mg Tab PO 50 mg Q6H PRN Administration Moderate to Severe Pain (6-10) Hospitalist Exam Vitals: Vital Signs (12 hours) Temp Pulse Resp BP BP Pulse Ox 04/11/20 08:45 134/69 04/11/20 08:00 99.2 F 93 12 135/69 96 04/11/20 04:00 97.9 F Weight Admit Weight 153 lb 4 oz Weight 153 lb 4 oz General Appearance: NAD, awake alert Eye: PERRL, anicteric sclera ENT: normocephalic atraumatic, no oropharyngeal lesions Neck: supple, symmetric, no JVD, no thyromegaly Heart: RRR, no murmur, no gallops, no rubs Respiratory: no wheezes, no rales, no ronchi Gastrointestinal: soft, non-tender, non-distended, normal bowel sounds Extremities: no cyanosis, no clubbing, no edema Skin: normal turgor, no lesions Neurological: no focal deficits Musculoskeletal: normal tone, normal strength Psychiatric: normal affect, normal behavior Hosp A/P (1) UTI (urinary tract infection) Status: Acute Qualifiers: Urinary tract infection type: acute cystitis Hematuria presence: without hematuria Qualified Code(s): N30.00 - Acute cystitis without hematuria (2) Obesity (BMI 30.0-34.9) Code(s): E66.9 - OBESITY, UNSPECIFIED Status: Chronic (3) Thrombocytopenia Code(s): D69.6 - THROMBOCYTOPENIA, UNSPECIFIED Status: Chronic (4) Anemia of chronic disease Code(s): D63.8 - ANEMIA IN OTHER CHRONIC DISEASES CLASSIFIED ELSEWHERE Status: Chronic (5) Breast cancer metastasized to bone Code(s): C50.919 - MALIGNANT NEOPLASM OF UNSP SITE OF UNSPECIFIED FEMALE BREAST; C79.51 - SECONDARY MALIGNANT NEOPLASM OF BONE Status: Chronic (6) Hypertension Code(s): I10 - ESSENTIAL (PRIMARY) HYPERTENSION Status: Chronic (7) Hyponatremia Code(s): E87.1 - HYPO-OSMOLALITY AND HYPONATREMIA Status: Acute (8) Transaminitis Code(s): R74.01 - ELEVATION OF LEVELS OF LIVER TRANSAMINASE LEVELS Status: Acute - Plan old records reviewed/req, plan discussed w/ family, continue antibiotics, PT/OT, social service assistant Urinary tract infection due to E. 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, patient is on dexamethasone, fentanyl patch working very well for her, will continue [place] and morphine for breakthrough pain Constipation likely due to pain medication, continue stool softener as needed Physical deconditioning patient is evaluated by PT OT and will need senior care home, social work needs to work on that as well Metastatic breast cancer patient is getting radiation therapy for bone metastasis, oncology following Hypertension, continue lisinopril 20 mg daily Hypothyroidism continue levothyroxine as per home dosage DVT prophylaxis continue Lovenox GI prophylaxis continue Protonix Discharge planning based on oncology recommendation and social work
--- NOTE | 2020-04-11 13:35 | PDOC.PALPN ---
Palliative Progress Note - Subjective is at bedside assisting with lunch- He states she is getting better pain relief with fentanyl patch- Nurses rate pain level at 5/10- have given hydrocodone 5/325 mg po several times for breakthrough pain. They don't feel that she is too sedated from the fentanyl. - Objective Vital Signs: Vital Signs - Most Recent Temp Pulse Resp BP Pulse Ox 99.2 F 93 12 134/69 96 04/11/20 08:00 04/11/20 08:00 04/11/20 08:00 04/11/20 08:45 04/11/20 08:00 - Physical Exam Constitutional: NAD, emaciated, ill appearing HEENT: EOMI, sclera anicteric Respiratory: unlabored breathing Gastrointestinal: non-tender, no distention Genitourinary: clifford catheter Musculoskeletal: no cyanosis, pulses present Neurology: moves all 4 limbs Deviation from normal: very weak Skin: cap refill <2 seconds, fragile, friable Deviation from normal: did not converse but interacts appropriately with - Assessment (1) Palliative care encounter Code(s): Z51.5 - ENCOUNTER FOR PALLIATIVE CARE Current Visit: Yes Status: Acute (2) Breast cancer metastasized to bone Code(s): C50.919 - MALIGNANT NEOPLASM OF UNSP SITE OF UNSPECIFIED FEMALE BREAST; C79.51 - SECONDARY MALIGNANT NEOPLASM OF BONE Current Visit: Yes Status: Chronic Comment: Better pain control on fentanyl patch - Plan Plan: Palliative care encounter to assess pain management effectiveness with addition of Fentanyl patch 50 mcg. states he believes his is more comfortable with the patch. 15 minutes spent on this encounter with >50% of the time in counseling and coordination of care. - ROS Non Response: due to mental status (very weak )
[2020-04-11] MEDS: Morphine 2 MG/ML VIAL SLOW IVP PRN (14:09)
--- NOTE | 2020-04-11 16:53 | PRG ---
DATE OF SERVICE: 04/11/2020 OBJECTIVE: VITAL SIGNS: The patient noted with the following vital signs; afebrile, temperature , pulse of 93, respiratory rate of 12, O2 saturation of 96%, blood pressure 134/69. LABORATORY INVESTIGATION: Showed a hemoglobin of 10.1. Chemistry showed a sodium of 128. IMPRESSION: Hyponatremia in the context of syndrome of inappropriate antidiuretic hormone secretion. PLAN: 1. We will continue to monitor the sodium level. If it begins to drift lower than what it is now, we will start this patient on tolvaptan on daily basis. 2. Continue increased protein intake. 3. Further management to be dependent on the clinical course. Job ID: [id number]
[2020-04-11] MEDS: cefTRIAXone\\ROCEPHIN 1 GM in Sodium Chloride 0.9% 100 ML IVPB SCH (23:35)
[2020-04-12] MEDS: Levothyroxine Sodium 112 MCG TAB PO SCH (06:20)
[2020-04-12 06:21] LABS: ALT (SGPT) 110 U/L (8-55); AST (SGOT) 80 U/L (5-34); Albumin 2.8 g/dL (3.4-4.8); Alkaline Phosphatase 1038 U/L (40-110); Anion Gap 13 mmol/L (10-20); BUN (Urea Nitrogen) 15 mg/dL (9.8-20.1); Bilirubin, Total 0.4 mg/dL (0.2-1.2); Calc. Creatinine Clearance 93 mL/min (70-130); Calcium 8.2 mg/dL (7.8-10.44); Carbon Dioxide 25 mmol/L (23-31); Chloride 95 mmol/L (98-107); Globulin 2.5 g/dL (2.4-3.5); Glucose 110 mg/dL (83-110); Potassium 4.2 mmol/L (3.5-5.1); Protein, Total 5.3 g/dL (5.8-8.1); Sodium 129 mmol/L (136-145)
[2020-04-12 06:35] LABS: #Basophils 0.1 thou/uL (0.0-0.2); #Lymphocytes 1.9 thou/uL (1.20-3.40); #Neutrophils 12.4 thou/uL (1.40-6.50); %Basophils 0.9 % (0.0-1.0); %Eosinophils 0.2 % (0.0-10.0); %Monocytes 6.7 % (0.0-10.0); %Neutrophils 80.3 % (42.0-75.0); Hemoglobin 10.9 g/dL (12.0-16.0); Mean Corpuscular HGB CONC 32.4 g/dL (32.0-36.0); Mean Corpuscular Hemoglobin 30.6 pg (27.0-31.0); Mean Corpuscular Volume 94.3 fL (78.0-98.0); Mean Platelet Volume 8.8 fL (7.4-10.4); Platelet Count 101 thou/uL (130-400); Red Blood Cell (RBC) Count 3.56 mill/uL (4.20-5.40); White Blood Cell (WBC) Count 15.4 thou/uL (4.8-10.8)
[2020-04-12] MEDS: Multivitamin W/ Minerals 1 TAB PO SCH (09:50)
[2020-04-12] MEDS: Cyanocobalamin (Vitamin B-12) 1,000 MCG TAB PO SCH (09:50)
[2020-04-12] MEDS: Folic Acid 1 MG TAB PO SCH (09:50)
[2020-04-12] MEDS: Lisinopril 20 MG TAB PO SCH (09:50)
[2020-04-12] MEDS: Sodium Chloride 1 GM TAB PO SCH ×3 (09:50→21:57)
[2020-04-12] MEDS: Montelukast Sodium 10 mg Tablet PO SCH (09:50)
[2020-04-12] MEDS: Dexamethasone 4 MG TAB PO SCH ×2 (09:50→16:34)
[2020-04-12] MEDS: Polyethylene Glycol 3350 17 GM Packet PO SCH ×2 (09:51→21:58)
[2020-04-12] MEDS: Enoxaparin Sodium 40 MG/0.4 ML SYRINGE SC SCH (09:51)
[2020-04-12] MEDS: fentaNYL 50 mcg/hour Patch TD SCH (09:51)
[2020-04-12] MEDS: Fluticasone Propionate Nasal Spray 16 gm Bottle NASAL SCH (09:54)
[2020-04-12] MEDS: HYDROcodone/Acetaminophen 5/325 mg Tablet PO PRN ×2 (09:59→15:23)
--- NOTE | 2020-04-12 11:25 | PDOC.HOSPP ---
- Subjective Encounter Date: 04/12/20 Encounter Time: 07:00 Subjective: Patient seen and examined bedside today, patient's is present bedside, patient's reports that he cannot take care of her at home, patient has not ambulated at all while in hospital, her pain is controlled with the current pain regimen, with ambulation her pain gets worse, she is getting radiation therapy, - Objective Vital Signs & Weight: Vital Signs (12 hours) Temp Pulse Resp BP Pulse Ox 04/12/20 08:00 97.6 F 88 18 150/73 H 95 Weight Admit Weight 153 lb 4 oz Weight 153 lb 4 oz I&O: 04/11/20 04/12/20 04/13/20 06:59 06:59 06:59 Intake Total 1550 1200 460 Output Total 2075 1400 Balance -525 -200 460 Result Diagrams: 04/12/20 05:30 04/12/20 05:30 Hospitalist ROS - Review of Systems Eyes: denies: pain, vision change, conjunctivae inflammation, eyelid inflammation, redness, other ENT: denies: ear pain, ear discharge, nose pain, nose discharge, nose congestion, mouth pain, mouth swelling, throat pain, throat swelling, other Respiratory: denies: cough, dry, shortness of breath, hemoptysis, SOB with excertion, pleuritic pain, sputum, wheezing, other Cardiovascular: denies: chest pain, palpitations, orthopnea, paroxysmal noc. dyspnea, edema, light headedness, other Gastrointestinal: denies: nausea, vomiting, abdominal pain, diarrhea, constipation, melena, hematochezia, other Genitourinary: denies: dysuria, frequency, incontinence, hematuria, retention, other Musculoskeletal: reports: leg pain. denies: neck pain, shoulder pain, arm pain, back pain, hand pain, foot pain, other - Medication Medications: Active Medications Generic Name Dose Route Start Last Admin Trade Name Freq PRN Reason Stop Dose Admin Acetaminophen 650 mg 04/02/20 13:26 04/11/20 23:38 Acetaminophen 325 Mg Tab PO 650 mg Q4H PRN Administration Headache/Fever/Mild Pain (1-3) Hydrocodone Bitart/Acetaminophen 1 tab 04/03/20 20:08 04/12/20 09:59 Hydrocodone/Acetaminophen 5/325 Mg Tablet PO 1 tab Q6H PRN Administration .BREAKTHROUGH Pain Cyanocobalamin 1,000 mcg 04/11/20 09:00 04/12/20 09:50 Cyanocobalamin (Vitamin B-12) 1,000 Mcg Tab PO 1,000 mcg DAILY CANDE Administration Dexamethasone 4 mg 04/03/20 17:00 04/12/20 09:50 Dexamethasone 4 Mg Tab PO 4 mg BID-WM CANDE Administration Enoxaparin Sodium 40 mg 04/03/20 09:00 04/12/20 09:51 Enoxaparin Sodium 40 Mg/0.4 Ml Syringe SC 40 mg 0900 CANDE Administration Fentanyl 50 mcg 04/09/20 09:00 04/12/20 09:51 Fentanyl 50 Mcg/Hour Patch TD 50 mcg Q3D CANDE Administration Fluticasone Propionate 0 gm 04/11/20 09:00 04/12/20 09:54 Fluticasone Propionate Nasal [place] 16 Gm Bottle NASAL 2 sprays DAILY CANDE Administration Folic Acid 1 mg 04/11/20 09:00 04/12/20 09:50 Folic Acid 1 Mg Tab PO 1 mg DAILY CANDE Administration Ceftriaxone Sodium 1 gm/ 100 mls @ 200 mls/hr 04/07/20 23:59 04/11/20 23:35 Sodium Chloride IVPB 100 mls Q24HR CANDE Administration Iron/Minerals/Multivitamins 1 tab 04/11/20 09:00 04/12/20 09:50 Multivitamin W/ Minerals 1 Tab PO 1 tab DAILY CANDE Administration Levothyroxine Sodium 112 mcg 04/03/20 06:00 04/12/20 06:20 Levothyroxine Sodium 112 Mcg Tab PO 112 mcg 0600 CANDE Administration Lisinopril 20 mg 04/03/20 09:00 04/12/20 09:50 Lisinopril 20 Mg Tab PO 20 mg DAILY CANDE Administration Melatonin 3 mg 04/02/20 20:51 04/11/20 21:05 Melatonin 3 Mg Tab PO 3 mg HSPRN PRN Administration Insomnia Memantine 10 mg 04/03/20 09:00 04/12/20 09:50 Memantine Hcl 10 Mg Tab PO 10 mg DAILY CANDE Administration Montelukast Sodium 10 mg 04/03/20 09:00 04/12/20 09:50 Montelukast Sodium 10 Mg Tablet PO 10 mg DAILY CANDE Administration Morphine Sulfate 2 mg 04/04/20 12:17 04/11/20 14:09 Morphine 2 Mg/Ml Vial SLOW IVP 2 mg Q2H PRN Administration Severe Pain (7-10) Pantoprazole Sodium 40 mg 04/04/20 09:00 04/12/20 09:50 Pantoprazole 40 Mg Tab PO 40 mg DAILY CANDE Administration Polyethylene Glycol 17 gm 04/10/20 09:00 04/12/20 09:51 Polyethylene Glycol 3350 17 Gm Packet PO 17 gm BID CANDE Administration Sodium Chloride 10 ml 04/02/20 13:26 04/11/20 14:09 Flush - Normal Saline 10 Ml Syringe IVF 10 ml PRN PRN Administration Saline Flush Sodium Chloride 1 gm 04/06/20 09:00 04/12/20 09:50 Sodium Chloride 1 Gm Tab PO 1 gm TID CANDE Administration Tramadol HCl 50 mg 04/02/20 14:16 04/10/20 11:32 Tramadol Hcl 50 Mg Tab PO 50 mg Q6H PRN Administration Moderate to Severe Pain (6-10) Hospitalist Exam Vitals: Vital Signs (12 hours) Temp Pulse Resp BP Pulse Ox 04/12/20 08:00 97.6 F 88 18 150/73 H 95 Weight Admit Weight 153 lb 4 oz Weight 153 lb 4 oz General Appearance: NAD, awake alert Eye: PERRL, anicteric sclera ENT: normocephalic atraumatic, no oropharyngeal lesions Neck: supple, symmetric, no JVD, no thyromegaly Heart: RRR, no murmur, no gallops, no rubs Respiratory: no wheezes, no rales, no ronchi Gastrointestinal: soft, non-tender, non-distended, normal bowel sounds Gastrointestinal - other findings: Rivers catheter in place Extremities: no cyanosis, no clubbing, no edema Skin: normal turgor, no lesions Neurological: no focal deficits Neurological - other findings: She moves all 4 limbs Musculoskeletal: generalized weakness Psychiatric: normal affect, normal behavior Hosp A/P (1) Breast cancer metastasized to bone Code(s): C50.919 - MALIGNANT NEOPLASM OF UNSP SITE OF UNSPECIFIED FEMALE BREAST; C79.51 - SECONDARY MALIGNANT NEOPLASM OF BONE Status: Chronic (2) UTI (urinary tract infection) Status: Acute Qualifiers: Urinary tract infection type: acute cystitis Hematuria presence: without hematuria Qualified Code(s): N30.00 - Acute cystitis without hematuria (3) Hyponatremia Code(s): E87.1 - HYPO-OSMOLALITY AND HYPONATREMIA Status: Acute (4) Transaminitis Code(s): R74.01 - ELEVATION OF LEVELS OF LIVER TRANSAMINASE LEVELS Status: Acute (5) Cancer related pain Code(s): G89.3 - NEOPLASM RELATED PAIN (ACUTE) (CHRONIC) Status: Acute (6) Physical deconditioning Code(s): R53.81 - OTHER MALAISE Status: Acute (7) Obesity (BMI 30.0-34.9) Code(s): E66.9 - OBESITY, UNSPECIFIED Status: Chronic (8) Hypertension Code(s): I10 - ESSENTIAL (PRIMARY) HYPERTENSION Status: Chronic (9) Anemia of chronic disease Code(s): D63.8 - ANEMIA IN OTHER CHRONIC DISEASES CLASSIFIED ELSEWHERE Status: Chronic (10) Thrombocytopenia Code(s): D69.6 - THROMBOCYTOPENIA, UNSPECIFIED Status: Chronic - Plan old records reviewed/req, plan discussed w/ family, continue antibiotics, PT/OT, manager social responsibility, DVT proph w/lovenox Urinary tract infection due to E. coli and Enterococcus, Continue Rocephin Hyponatremia likely due to SIADH, Continue salt tablet Leukocytosis likely related with dexamethasone, Thrombocytopenia likely related with bone metastasis and underlying cancer, improving Intractable pain due to bone metastasis, patient is on dexamethasone, fentanyl patch working very well for her, will continue [place] and morphine for breakthrough pain Constipation likely due to pain medication, continue stool softener as needed Physical deconditioning patient is evaluated by PT OT and will need assisted home, social work needs to work on that as well Metastatic breast cancer patient is getting radiation therapy for bone metastasis, oncology following Hypertension, continue lisinopril 20 mg daily Hypothyroidism continue levothyroxine as per home dosage DVT prophylaxis continue Lovenox GI prophylaxis continue Protonix
[2020-04-12] MEDS: Morphine 2 MG/ML VIAL SLOW IVP PRN (14:03)
--- NOTE | 2020-04-12 15:44 | PRG ---
DATE OF SERVICE: 04/12/2020 SUBJECTIVE: The patient was seen and noted with the following vital signs. OBJECTIVE: VITAL SIGNS: Afebrile, temperature 97.6, pulse 88, respiratory rate of 18, O2 saturation of 95%, and blood pressure 150/73. HEENT: Unremarkable. CARDIOVASCULAR SYSTEM: First and second heart sounds were heard. RESPIRATORY SYSTEM: Clear to auscultation. DIGESTIVE SYSTEM: Revealed a benign abdomen. Positive bowel sounds. EXTREMITIES: No peripheral edema. SKIN: No new gross rash. LYMPHATICS: No peripheral lymphadenopathy. IMPRESSION: Hyponatremia in the context of syndrome of inappropriate antidiuretic hormone secretion. PLAN: 1. Continue with high-protein intake. If sodium begins to we will re-initiate anti-ADH. 2. Further management to be dependent on the clinical course. Job ID: [id number]
[2020-04-12] MEDS: Melatonin 3 MG TAB PO PRN (21:58)
[2020-04-12] MEDS: cefTRIAXone\\ROCEPHIN 1 GM in Sodium Chloride 0.9% 100 ML IVPB SCH (23:37)
[2020-04-13] MEDS: Levothyroxine Sodium 112 MCG TAB PO SCH (06:22)
[2020-04-13] MEDS ORDERED: Sodium Chloride 0.9% 10 ML ONE (07:49)
[2020-04-13] MEDS: HYDROcodone/Acetaminophen 5/325 mg Tablet PO PRN (07:56)
[2020-04-13] MEDS: Dexamethasone 4 MG TAB PO SCH ×2 (08:01→17:45)
[2020-04-13] MEDS: Polyethylene Glycol 3350 17 GM Packet PO SCH ×2 (08:01→21:29)
[2020-04-13] MEDS: Montelukast Sodium 10 mg Tablet PO SCH (08:01)
[2020-04-13] MEDS: Folic Acid 1 MG TAB PO SCH (08:01)
[2020-04-13] MEDS: Cyanocobalamin (Vitamin B-12) 1,000 MCG TAB PO SCH (08:01)
[2020-04-13] MEDS: Multivitamin W/ Minerals 1 TAB PO SCH (08:01)
[2020-04-13] MEDS: Lisinopril 20 MG TAB PO SCH (08:01)
[2020-04-13] MEDS: Enoxaparin Sodium 40 MG/0.4 ML SYRINGE SC SCH (08:01)
[2020-04-13] MEDS: Sodium Chloride 1 GM TAB PO SCH ×3 (08:01→21:29)
[2020-04-13] MEDS: Fluticasone Propionate Nasal Spray 16 gm Bottle NASAL SCH (08:02)
[2020-04-13] MEDS: Morphine 2 MG/ML VIAL SLOW IVP PRN ×4 (10:01→17:44)
--- NOTE | 2020-04-13 10:43 | PDOC.HOSPP ---
- Subjective Encounter Date: 04/13/20 Encounter Time: 07:00 Subjective: Patient seen and examined. No new complaints. No overnight events - Objective Vital Signs & Weight: Vital Signs (12 hours) Temp Pulse Resp BP BP Pulse Ox 04/13/20 08:01 139/78 04/13/20 08:00 98.1 F 106 H 20 139/78 97 04/12/20 23:31 113 H Weight Admit Weight 153 lb 4 oz Weight 153 lb 4 oz I&O: 04/12/20 04/13/20 04/14/20 06:59 06:59 06:59 Intake Total 1200 1540 Output Total 1400 1900 Balance -200 -360 Result Diagrams: 04/12/20 05:30 04/12/20 05:30 Hospitalist ROS - Review of Systems Constitutional: reports: weakness, malaise ENT: denies: ear pain, ear discharge, nose pain, nose discharge, nose congestion, mouth pain, mouth swelling, throat pain, throat swelling, other Respiratory: denies: cough, dry, shortness of breath, hemoptysis, SOB with excertion, pleuritic pain, sputum, wheezing, other Cardiovascular: denies: chest pain, palpitations, orthopnea, paroxysmal noc. dyspnea, edema, light headedness, other Gastrointestinal: denies: nausea, vomiting, abdominal pain, diarrhea, con stipation, melena, hematochezia, other Genitourinary: denies: dysuria, frequency, incontinence, hematuria, retention, other - Medication Medications: Active Medications Generic Name Dose Route Start Last Admin Trade Name Freq PRN Reason Stop Dose Admin Acetaminophen 650 mg 04/02/20 13:26 04/11/20 23:38 Acetaminophen 325 Mg Tab PO 650 mg Q4H PRN Administration Headache/Fever/Mild Pain (1-3) Hydrocodone Bitart/Acetaminophen 1 tab 04/03/20 20:08 04/13/20 07:56 Hydrocodone/Acetaminophen 5/325 Mg Tablet PO 1 tab Q6H PRN Administration .BREAKTHROUGH Pain Cyanocobalamin 1,000 mcg 04/11/20 09:00 04/13/20 08:01 Cyanocobalamin (Vitamin B-12) 1,000 Mcg Tab PO 1,000 mcg DAILY CANDE Administration Dexamethasone 4 mg 04/03/20 17:00 04/13/20 08:01 Dexamethasone 4 Mg Tab PO 4 mg BID-WM CANDE Administration Enoxaparin Sodium 40 mg 04/03/20 09:00 04/13/20 08:01 Enoxaparin Sodium 40 Mg/0.4 Ml Syringe SC 40 mg 0900 CANDE Administration Fentanyl 50 mcg 04/09/20 09:00 04/12/20 09:51 Fentanyl 50 Mcg/Hour Patch TD 50 mcg Q3D CANDE Administration Fluticasone Propionate 0 gm 04/11/20 09:00 04/13/20 08:02 Fluticasone Propionate Nasal [place] 16 Gm Bottle NASAL 2 sprays DAILY CANDE Administration Folic Acid 1 mg 04/11/20 09:00 04/13/20 08:01 Folic Acid 1 Mg Tab PO 1 mg DAILY CANDE Administration Ceftriaxone Sodium 1 gm/ 100 mls @ 200 mls/hr 04/07/20 23:59 04/12/20 23:37 Sodium Chloride IVPB 100 mls Q24HR CANDE Administration Iron/Minerals/Multivitamins 1 tab 04/11/20 09:00 04/13/20 08:01 Multivitamin W/ Minerals 1 Tab PO 1 tab DAILY CANDE Administration Levothyroxine Sodium 112 mcg 04/03/20 06:00 04/13/20 06:22 Levothyroxine Sodium 112 Mcg Tab PO 112 mcg 0600 CANDE Administration Lisinopril 20 mg 04/03/20 09:00 04/13/20 08:01 Lisinopril 20 Mg Tab PO 20 mg DAILY CANDE Administration Melatonin 3 mg 04/02/20 20:51 04/12/20 21:58 Melatonin 3 Mg Tab PO 3 mg HSPRN PRN Administration Insomnia Memantine 10 mg 04/03/20 09:00 04/13/20 08:01 Memantine Hcl 10 Mg Tab PO 10 mg DAILY CANDE Administration Montelukast Sodium 10 mg 04/03/20 09:00 04/13/20 08:01 Montelukast Sodium 10 Mg Tablet PO 10 mg DAILY CANDE Administration Morphine Sulfate 2 mg 04/04/20 12:17 04/13/20 10:01 Morphine 2 Mg/Ml Vial SLOW IVP 2 mg Q2H PRN Administration Severe Pain (7-10) Ondansetron HCl 4 mg 04/10/20 07:34 04/12/20 16:34 Ondansetron Odt 4 Mg Tab SL 4 mg Q6H PRN Administration Nausea/Vomiting Pantoprazole Sodium 40 mg 04/04/20 09:00 04/13/20 08:01 Pantoprazole 40 Mg Tab PO 40 mg DAILY CANDE Administration Polyethylene Glycol 17 gm 04/10/20 09:00 04/13/20 08:01 Polyethylene Glycol 3350 17 Gm Packet PO 17 gm BID CANDE Administration Sodium Chloride 10 ml 04/02/20 13:26 04/11/20 14:09 Flush - Normal Saline 10 Ml Syringe IVF 10 ml PRN PRN Administration Saline Flush Sodium Chloride 1 gm 04/06/20 09:00 04/13/20 08:01 Sodium Chloride 1 Gm Tab PO 1 gm TID CANDE Administration Hospitalist Exam Vitals: Vital Signs (12 hours) Temp Pulse Resp BP BP Pulse Ox 04/13/20 08:01 139/78 04/13/20 08:00 98.1 F 106 H 20 139/78 97 04/12/20 23:31 113 H Weight Admit Weight 153 lb 4 oz Weight 153 lb 4 oz General Appearance: NAD, awake alert Eye: PERRL, anicteric sclera ENT: normocephalic atraumatic, no oropharyngeal lesions Neck: supple, symmetric, no JVD, no thyromegaly Heart: RRR, no murmur, no gallops, no rubs Respiratory: no wheezes, no rales, no ronchi Gastrointestinal: soft, non-tender, non-distended, normal bowel sounds Extremities: no edema Skin: normal turgor, no lesions Neurological: no new deficit Musculoskeletal: normal tone, normal strength Psychiatric: normal affect, normal behavior Hosp A/P (1) Breast cancer metastasized to bone Code(s): C50.919 - MALIGNANT NEOPLASM OF UNSP SITE OF UNSPECIFIED FEMALE BREAST; C79.51 - SECONDARY MALIGNANT NEOPLASM OF BONE Status: Chronic (2) UTI (urinary tract infection) Status: Acute Qualifiers: Urinary tract infection type: acute cystitis Hematuria presence: without hematuria Qualified Code(s): N30.00 - Acute cystitis without hematuria (3) Hyponatremia Code(s): E87.1 - HYPO-OSMOLALITY AND HYPONATREMIA Status: Acute (4) Transaminitis Code(s): R74.01 - ELEVATION OF LEVELS OF LIVER TRANSAMINASE LEVELS Status: Acute (5) Cancer related pain Code(s): G89.3 - NEOPLASM RELATED PAIN (ACUTE) (CHRONIC) Status: Acute (6) Physical deconditioning Code(s): R53.81 - OTHER MALAISE Status: Acute (7) Obesity (BMI 30.0-34.9) Code(s): E66.9 - OBESITY, UNSPECIFIED Status: Chronic (8) Hypertension Code(s): I10 - ESSENTIAL (PRIMARY) HYPERTENSION Status: Chronic (9) Anemia of chronic disease Code(s): D63.8 - ANEMIA IN OTHER CHRONIC DISEASES CLASSIFIED ELSEWHERE Status: Chronic (10) Thrombocytopenia Code(s): D69.6 - THROMBOCYTOPENIA, UNSPECIFIED Status: Chronic - Plan old records reviewed/req, continue antibiotics, PT/OT, social science analyst Urinary tract infection due to E. coli and Enterococcus, Continue Rocephin Hyponatremia likely due to SIADH, Continue salt tablet Leukocytosis likely related with dexamethasone, Thrombocytopenia likely related with bone metastasis and underlying cancer, improving Intractable pain due to bone metastasis, patient is on dexamethasone, fentanyl patch working very well for her, will continue [place] and morphine for breakthrough pain Constipation likely due to pain medication, continue stool softener as needed Physical deconditioning patient is evaluated by PT OT and will need long-term home, social work needs to work on that as well Metastatic breast cancer patient is getting radiation therapy for bone metastasis, oncology following Hypertension, continue lisinopril 20 mg daily Hypothyroidism continue levothyroxine as per home dosage DVT prophylaxis continue Lovenox GI prophylaxis continue Protonix Plan is to control pain, continue PT OT and eventual placement after radiation therapy, will continue Rocephin IV as patient has Rivers catheter and will repeat labs tomorrow
[2020-04-13] MEDS ORDERED: Magnesium Citrate 300 ML BOT PO SCH (12:30)
[2020-04-13] MEDS: Sodium Chloride 0.65% Nasal 44 ML BOT EA NARE PRN (14:46)
--- NOTE | 2020-04-13 19:15 | PRG ---
DATE OF SERVICE: 04/13/2020 SUBJECTIVE: The patient noted with the following vital signs. OBJECTIVE: VITAL SIGNS: Afebrile, temperature 98.1, pulse 106, blood pressure 139/78, respiratory rate of 20, O2 saturation of 97%. HEENT: Unremarkable. CARDIOVASCULAR SYSTEM: First and second heart sounds were heard. RESPIRATORY SYSTEM: Clear to auscultation. DIGESTIVE SYSTEM: Revealed a benign abdomen with positive bowel sounds. EXTREMITIES: No peripheral edema. SKIN: No new gross rash. LYMPHATICS: No peripheral lymphadenopathy. LABORATORY INVESTIGATION: Showed sodium of 129. IMPRESSION: 1. 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 2. Syndrome of inappropriate antidiuretic hormone secretion. PLAN: 1. Continue with current high-protein diet in the way of increased animal meat. 2. Further management will be dependent on the clinical course. Job ID: [id number]
[2020-04-13] MEDS: Melatonin 3 MG TAB PO PRN (21:29)
[2020-04-13] MEDS: fentaNYL 50 mcg/hour Patch TD SCH (22:35)
[2020-04-14] MEDS: cefTRIAXone\\ROCEPHIN 1 GM in Sodium Chloride 0.9% 100 ML IVPB SCH ×2 (00:57→23:04)
[2020-04-14 05:44] LABS: Anion Gap 14 mmol/L (10-20); BUN (Urea Nitrogen) 22 mg/dL (9.8-20.1); Calc. Creatinine Clearance 88 mL/min (70-130); Calcium 7.9 mg/dL (7.8-10.44); Carbon Dioxide 24 mmol/L (23-31); Chloride 92 mmol/L (98-107); Glucose 103 mg/dL (83-110); Potassium 4.7 mmol/L (3.5-5.1); Sodium 125 mmol/L (136-145)
[2020-04-14] MEDS: Levothyroxine Sodium 112 MCG TAB PO SCH (06:11)
[2020-04-14 07:09] LABS: Anisocytosis SLIGHT = 6-15 cells (100X) (0-5/hpf); Band 20 % (5-11); Eosinophils 1 % (0-10); Hemoglobin 11.8 g/dL (12.0-16.0); Lymphocytes 13 % (21-51); MDiff Complete? YES; Mean Corpuscular HGB CONC 32.2 g/dL (32.0-36.0); Mean Corpuscular Hemoglobin 29.7 pg (27.0-31.0); Mean Corpuscular Volume 92.5 fL (78.0-98.0); Mean Platelet Volume 9.6 fL (7.4-10.4); Monocytes 5 % (0-10); Myelocyte 6 % (0-0); Neutrophil 55 % (42-75); Nucleated RBC 2 % (0); Platelet Count 118 thou/uL (130-400); Platelet Morphology Comment Appears Decreased; RBC Distribution Width 16.3 % (11.5-14.5); Red Blood Cell (RBC) Count 3.97 mill/uL (4.20-5.40); White Blood Cell (WBC) Count 15.7 thou/uL (4.8-10.8)
[2020-04-14] MEDS: Multivitamin W/ Minerals 1 TAB PO SCH (08:39)
[2020-04-14] MEDS: Dexamethasone 4 MG TAB PO SCH ×2 (08:39→17:15)
[2020-04-14] MEDS: Sodium Chloride 1 GM TAB PO SCH ×3 (08:39→21:11)
[2020-04-14] MEDS: Enoxaparin Sodium 40 MG/0.4 ML SYRINGE SC SCH (08:39)
[2020-04-14] MEDS: Folic Acid 1 MG TAB PO SCH (08:39)
[2020-04-14] MEDS: Montelukast Sodium 10 mg Tablet PO SCH (08:39)
[2020-04-14] MEDS: Lisinopril 20 MG TAB PO SCH (08:39)
[2020-04-14] MEDS: Polyethylene Glycol 3350 17 GM Packet PO SCH ×2 (08:40→21:13)
[2020-04-14] MEDS: Fluticasone Propionate Nasal Spray 16 gm Bottle NASAL SCH (08:40)
[2020-04-14] MEDS: Cyanocobalamin (Vitamin B-12) 1,000 MCG TAB PO SCH (08:40)
--- NOTE | 2020-04-14 09:48 | PDOC.HOSPP ---
- Subjective Encounter Date: 04/14/20 Encounter Time: 07:00 Subjective: Patient seen and examined bedside today, patient had a good bowel movement yesterday, she is still in a lot of pain, she has not ambulated yet all, I spoke with the patient's and updated about plan of care, patient cannot take care of her, - Objective Vital Signs & Weight: Vital Signs (12 hours) Temp Pulse Resp BP BP Pulse Ox 04/14/20 08:39 119/58 L 04/14/20 08:00 98.2 F 86 18 119/58 L 98 Weight Admit Weight 153 lb 4 oz Weight 153 lb 4 oz I&O: 04/13/20 04/14/20 04/15/20 06:59 06:59 06:59 Intake Total 1540 Output Total 1900 375 Balance -360 -375 Result Diagrams: 04/14/20 05:08 04/14/20 05:08 Hospitalist ROS - Review of Systems Constitutional: reports: weakness, malaise. denies: fever, chills, sweats, other Eyes: denies: pain, vision change, conjunctivae inflammation, eyelid inflammation, redness, other ENT: denies: ear pain, ear discharge, nose pain, nose discharge, nose congestion, mouth pain, mouth swelling, throat pain, throat swelling, other Respiratory: denies: cough, dry, shortness of breath, hemoptysis, SOB with excertion, pleuritic pain, sputum, wheezing, other Cardiovascular: denies: chest pain, palpitations, orthopnea, paroxysmal noc. dyspnea, edema, light headedness, other Gastrointestinal: denies: nausea, vomiting, abdominal pain, diarrhea, constipation, melena, hematochezia, other Genitourinary: denies: dysuria, frequency, incontinence, hematuria, retention, other Musculoskeletal: reports: back pain, leg pain. denies: neck pain, shoulder pain, arm pain, hand pain, foot pain, other - Medication Medications: Active Medications Generic Name Dose Route Start Last Admin Trade Name Freq PRN Reason Stop Dose Admin Acetaminophen 650 mg 04/02/20 13:26 04/11/20 23:38 Acetaminophen 325 Mg Tab PO 650 mg Q4H PRN Administration Headache/Fever/Mild Pain (1-3) Cyanocobalamin 1,000 mcg 04/11/20 09:00 04/14/20 08:40 Cyanocobalamin (Vitamin B-12) 1,000 Mcg Tab PO 1,000 mcg DAILY CANDE Administration Dexamethasone 4 mg 04/03/20 17:00 04/14/20 08:39 Dexamethasone 4 Mg Tab PO 4 mg BID-WM CANDE Administration Enoxaparin Sodium 40 mg 04/03/20 09:00 04/14/20 08:39 Enoxaparin Sodium 40 Mg/0.4 Ml Syringe SC 40 mg 0900 CANDE Administration Fentanyl 50 mcg 04/13/20 23:00 04/13/20 22:35 Fentanyl 50 Mcg/Hour Patch TD 50 mcg Q3D@2300 CANDE Administration Fluticasone Propionate 0 gm 04/11/20 09:00 04/14/20 08:40 Fluticasone Propionate Nasal [place] 16 Gm Bottle NASAL 2 sprays DAILY CANDE Administration Folic Acid 1 mg 04/11/20 09:00 04/14/20 08:39 Folic Acid 1 Mg Tab PO 1 mg DAILY CANDE Administration Ceftriaxone Sodium 1 gm/ 100 mls @ 200 mls/hr 04/07/20 23:59 04/14/20 00:57 Sodium Chloride IVPB 100 mls Q24HR CANDE Administration Iron/Minerals/Multivitamins 1 tab 04/11/20 09:00 04/14/20 08:39 Multivitamin W/ Minerals 1 Tab PO 1 tab DAILY CANDE Administration Levothyroxine Sodium 112 mcg 04/03/20 06:00 04/14/20 06:11 Levothyroxine Sodium 112 Mcg Tab PO 112 mcg 0600 CANDE Administration Lisinopril 20 mg 04/03/20 09:00 04/14/20 08:39 Lisinopril 20 Mg Tab PO 20 mg DAILY CANDE Administration Melatonin 3 mg 04/02/20 20:51 04/13/20 21:29 Melatonin 3 Mg Tab PO 3 mg HSPRN PRN Administration Insomnia Memantine 10 mg 04/03/20 09:00 04/14/20 08:39 Memantine Hcl 10 Mg Tab PO 10 mg DAILY CANDE Administration Montelukast Sodium 10 mg 04/03/20 09:00 04/14/20 08:39 Montelukast Sodium 10 Mg Tablet PO 10 mg DAILY CANDE Administration Morphine Sulfate 2 mg 04/04/20 12:17 04/13/20 17:44 Morphine 2 Mg/Ml Vial SLOW IVP 2 mg Q2H PRN Administration Severe Pain (7-10) Ondansetron HCl 4 mg 04/10/20 07:34 04/12/20 16:34 Ondansetron Odt 4 Mg Tab SL 4 mg Q6H PRN Administration Nausea/Vomiting Pantoprazole Sodium 40 mg 04/04/20 09:00 04/14/20 08:39 Pantoprazole 40 Mg Tab PO 40 mg DAILY CANDE Administration Polyethylene Glycol 17 gm 04/10/20 09:00 04/14/20 08:40 Polyethylene Glycol 3350 17 Gm Packet PO 17 gm BID CANDE Administration Sodium Chloride 10 ml 04/02/20 13:26 04/14/20 08:56 Flush - Normal Saline 10 Ml Syringe IVF 10 ml PRN PRN Administration Saline Flush Sodium Chloride 1 gm 04/06/20 09:00 04/14/20 08:39 Sodium Chloride 1 Gm Tab PO 1 gm TID CANDE Administration Sodium Chloride 0 ml 04/10/20 07:34 04/13/20 14:46 Sodium Chloride 0.65% Nasal 44 Ml Bot EA NARE 1 spr QIDPRN PRN Administration Nasal Congestion Hospitalist Exam Vitals: Vital Signs (12 hours) Temp Pulse Resp BP BP Pulse Ox 04/14/20 08:39 119/58 L 04/14/20 08:00 98.2 F 86 18 119/58 L 98 Weight Admit Weight 153 lb 4 oz Weight 153 lb 4 oz General Appearance: NAD, awake alert Eye: PERRL, anicteric sclera ENT: normocephalic atraumatic, no oropharyngeal lesions Neck: supple, symmetric, no JVD, no thyromegaly Heart: RRR, no murmur, no gallops, no rubs Respiratory: no wheezes, no rales, no ronchi Gastrointestinal: soft, non-tender, non-distended, normal bowel sounds Extremities: no clubbing, no edema Skin: normal turgor, no lesions Neurological: no new deficit Musculoskeletal: generalized weakness Psychiatric: normal affect, normal behavior Hosp A/P (1) Breast cancer metastasized to bone Code(s): C50.919 - MALIGNANT NEOPLASM OF UNSP SITE OF UNSPECIFIED FEMALE BREAST; C79.51 - SECONDARY MALIGNANT NEOPLASM OF BONE Status: Chronic (2) UTI (urinary tract infection) Status: Acute Qualifiers: Urinary tract infection type: acute cystitis Hematuria presence: without hematuria Qualified Code(s): N30.00 - Acute cystitis without hematuria (3) Hyponatremia Code(s): E87.1 - HYPO-OSMOLALITY AND HYPONATREMIA Status: Acute (4) Transaminitis Code(s): R74.01 - ELEVATION OF LEVELS OF LIVER TRANSAMINASE LEVELS Status: Acute (5) Cancer related pain Code(s): G89.3 - NEOPLASM RELATED PAIN (ACUTE) (CHRONIC) Status: Acute (6) Physical deconditioning Code(s): R53.81 - OTHER MALAISE Status: Acute (7) Obesity (BMI 30.0-34.9) Code(s): E66.9 - OBESITY, UNSPECIFIED Status: Chronic (8) Hypertension Code(s): I10 - ESSENTIAL (PRIMARY) HYPERTENSION Status: Chronic (9) Anemia of chronic disease Code(s): D63.8 - ANEMIA IN OTHER CHRONIC DISEASES CLASSIFIED ELSEWHERE Status: Chronic (10) Thrombocytopenia Code(s): D69.6 - THROMBOCYTOPENIA, UNSPECIFIED Status: Chronic - Plan old records reviewed/req, plan discussed w/ family, continue antibiotics, PT/OT, nephrology social worker Continue Rocephin for UTI, as patient has leukocytosis as well as patient has indwelling catheter will prefer her to continue Rocephin, Continue PT OT as tolerated Medication reviewed and continue provide symptomatic and supportive care Unfortunately even after radiation therapy patient does not have any improvement in her mobility, I doubt she will recover any further, she will require long- term [facility] placement as her cannot take care of her, Tomorrow she will resume her radiation therapy, once radiation therapy is done then patient will go to [facility] for nursing care.
[2020-04-14] MEDS: Acetaminophen 325 MG TAB PO PRN (11:59)
[2020-04-14] MEDS ORDERED: Morphine 2 MG/ML VIAL SLOW IVP PRN (12:20)
[2020-04-14] MEDS: Melatonin 3 MG TAB PO PRN (21:11)
[2020-04-15] MEDS ORDERED: Levothyroxine Sodium 112 MCG TAB ONE ×2 (04:56→06:00)
[2020-04-15] MEDS ORDERED: Multivitamin W/ Minerals 1 TAB ONE (08:30)
[2020-04-15] MEDS ORDERED: Enoxaparin Sodium 40 MG/0.4 ML SYRINGE ONE (08:30)
[2020-04-15] MEDS ORDERED: Folic Acid 1 MG TAB ONE (08:30)
[2020-04-15] MEDS ORDERED: Lisinopril 20 MG TAB ONE (08:30)
[2020-04-15] MEDS ORDERED: Cyanocobalamin 1000 MCG/ML VIAL ONE (08:30)
[2020-04-15] MEDS ORDERED: Dexamethasone 4 MG TAB ONE ×2 (08:30→15:24)
[2020-04-15] MEDS ORDERED: Sodium Chloride 1 GM TAB ONE (08:30)
[2020-04-15] MEDS ORDERED: Polyethylene Glycol 3350 17 GM Packet ONE (08:30)
[2020-04-15] MEDS ORDERED: Montelukast Sodium 10 mg Tablet ONE (08:30)
[2020-04-15] MEDS ORDERED: Cyanocobalamin (Vitamin B-12) 1,000 MCG TAB ONE (08:32)
[2020-04-15] MEDS: Polyethylene Glycol 3350 17 GM Packet PO SCH ×2 (10:00→20:06)
[2020-04-15] MEDS: Cyanocobalamin (Vitamin B-12) 1,000 MCG TAB PO SCH (10:00)
[2020-04-15] MEDS: Enoxaparin Sodium 40 MG/0.4 ML SYRINGE SC SCH (10:00)
[2020-04-15] MEDS: Multivitamin W/ Minerals 1 TAB PO SCH (10:00)
[2020-04-15] MEDS: Dexamethasone 4 MG TAB PO SCH ×2 (10:00→18:47)
[2020-04-15] MEDS: Folic Acid 1 MG TAB PO SCH (10:00)
[2020-04-15] MEDS: Montelukast Sodium 10 mg Tablet PO SCH (10:00)
[2020-04-15] MEDS: Lisinopril 20 MG TAB PO SCH (10:00)
[2020-04-15] MEDS: Fluticasone Propionate Nasal Spray 16 gm Bottle NASAL SCH (10:00)
[2020-04-15] MEDS: Sodium Chloride 1 GM TAB PO SCH ×3 (10:00→20:43)
--- NOTE | 2020-04-15 12:34 | PDOC.HOSPP ---
- Subjective Encounter Date: 04/15/20 Encounter Time: 07:00 Subjective: Patient seen and examined. No new complaints. No overnight events - Objective Vital Signs & Weight: Vital Signs (12 hours) Temp Pulse Resp BP Pulse Ox 04/15/20 08:00 97.9 F 94 18 131/60 92 L Weight Admit Weight 153 lb 4 oz Weight 153 lb 4 oz I&O: 04/14/20 04/15/20 04/16/20 06:59 06:59 06:59 Intake Total 1440 Output Total 375 750 Balance -375 690 Result Diagrams: 04/14/20 05:08 04/14/20 05:08 Hospitalist ROS - Review of Systems ENT: denies: ear pain, ear discharge, nose pain, nose discharge, nose congesti on, mouth pain, mouth swelling, throat pain, throat swelling, other Respiratory: denies: cough, dry, shortness of breath, hemoptysis, SOB with excertion, pleuritic pain, sputum, wheezing, other Cardiovascular: denies: chest pain, palpitations, orthopnea, paroxysmal noc. dyspnea, edema, light headedness, other Gastrointestinal: denies: nausea, vomiting, abdominal pain, diarrhea, constipation, melena, hematochezia, other Genitourinary: denies: dysuria, frequency, incontinence, hematuria, retention, other Musculoskeletal: denies: neck pain, shoulder pain, arm pain, back pain, hand pain, leg pain, foot pain, other - Medication Medications: Active Medications Generic Name Dose Route Start Last Admin Trade Name Freq PRN Reason Stop Dose Admin Acetaminophen 650 mg 04/02/20 13:26 04/14/20 11:59 Acetaminophen 325 Mg Tab PO 650 mg Q4H PRN Administration Headache/Fever/Mild Pain (1-3) Cyanocobalamin 1,000 mcg 04/11/20 09:00 04/14/20 08:40 Cyanocobalamin (Vitamin B-12) 1,000 Mcg Tab PO 1,000 mcg DAILY CANDE Administration Dexamethasone 4 mg 04/03/20 17:00 04/14/20 17:15 Dexamethasone 4 Mg Tab PO 4 mg BID- CANDE Administration Enoxaparin Sodium 40 mg 04/03/20 09:00 04/14/20 08:39 Enoxaparin Sodium 40 Mg/0.4 Ml Syringe SC 40 mg 0900 CANDE Administration Fentanyl 50 mcg 04/13/20 23:00 04/13/20 22:35 Fentanyl 50 Mcg/Hour Patch TD 50 mcg Q3D@2300 CANDE Administration Fluticasone Propionate 0 gm 04/11/20 09:00 04/14/20 08:40 Fluticasone Propionate Nasal [place] 16 Gm Bottle NASAL 2 sprays DAILY CANDE Administration Folic Acid 1 mg 04/11/20 09:00 04/14/20 08:39 Folic Acid 1 Mg Tab PO 1 mg DAILY CANDE Administration Ceftriaxone Sodium 1 gm/ 100 mls @ 200 mls/hr 04/07/20 23:59 04/14/20 23:04 Sodium Chloride IVPB 100 mls Q24HR CANDE Administration Iron/Minerals/Multivitamins 1 tab 04/11/20 09:00 04/14/20 08:39 Multivitamin W/ Minerals 1 Tab PO 1 tab DAILY CANDE Administration Levothyroxine Sodium 112 mcg 04/03/20 06:00 04/14/20 06:11 Levothyroxine Sodium 112 Mcg Tab PO 112 mcg 0600 CANDE Administration Lisinopril 20 mg 04/03/20 09:00 04/14/20 08:39 Lisinopril 20 Mg Tab PO 20 mg DAILY CANDE Administration Melatonin 3 mg 04/02/20 20:51 04/14/20 21:11 Melatonin 3 Mg Tab PO 3 mg HSPRN PRN Administration Insomnia Memantine 10 mg 04/03/20 09:00 04/14/20 08:39 Memantine Hcl 10 Mg Tab PO 10 mg DAILY CANDE Administration Montelukast Sodium 10 mg 04/03/20 09:00 04/14/20 08:39 Montelukast Sodium 10 Mg Tablet PO 10 mg DAILY CANDE Administration Ondansetron HCl 4 mg 04/10/20 07:34 04/12/20 16:34 Ondansetron Odt 4 Mg Tab SL 4 mg Q6H PRN Administration Nausea/Vomiting Pantoprazole Sodium 40 mg 04/04/20 09:00 04/14/20 08:39 Pantoprazole 40 Mg Tab PO 40 mg DAILY CANDE Administration Polyethylene Glycol 17 gm 04/10/20 09:00 04/14/20 21:13 Polyethylene Glycol 3350 17 Gm Packet PO Not Given BID CANDE Sodium Chloride 10 ml 04/02/20 13:26 04/14/20 08:56 Flush - Normal Saline 10 Ml Syringe IVF 10 ml PRN PRN Administration Saline Flush Sodium Chloride 1 gm 04/06/20 09:00 04/14/20 21:11 Sodium Chloride 1 Gm Tab PO 1 gm TID CANDE Administration Sodium Chloride 0 ml 04/10/20 07:34 04/13/20 14:46 Sodium Chloride 0.65% Nasal 44 Ml Bot EA NARE 1 spr QIDPRN PRN Administration Nasal Congestion Hospitalist Exam Vitals: Vital Signs (12 hours) Temp Pulse Resp BP Pulse Ox 04/15/20 08:00 97.9 F 94 18 131/60 92 L Weight Admit Weight 153 lb 4 oz Weight 153 lb 4 oz General Appearance: NAD, awake alert Eye: PERRL, anicteric sclera ENT: normocephalic atraumatic, no oropharyngeal lesions Neck: supple, symmetric, no JVD, no thyromegaly Heart: RRR, no murmur, no gallops, no rubs Respiratory: no wheezes, no rales, no ronchi Gastrointestinal: soft, non-tender, non-distended, normal bowel sounds, no palpable masses Extremities: no cyanosis, no clubbing, no edema Skin: normal turgor, no lesions Neurological: no new deficit Musculoskeletal: normal tone, normal strength Psychiatric: normal affect, normal behavior Hosp A/P (1) Breast cancer metastasized to bone Code(s): C50.919 - MALIGNANT NEOPLASM OF UNSP SITE OF UNSPECIFIED FEMALE BREAST; C79.51 - SECONDARY MALIGNANT NEOPLASM OF BONE Status: Chronic (2) UTI (urinary tract infection) Status: Acute Qualifiers: Urinary tract infection type: acute cystitis Hematuria presence: without hematuria Qualified Code(s): N30.00 - Acute cystitis without hematuria (3) Hyponatremia Code(s): E87.1 - HYPO-OSMOLALITY AND HYPONATREMIA Status: Acute (4) Transaminitis Code(s): R74.01 - ELEVATION OF LEVELS OF LIVER TRANSAMINASE LEVELS Status: Acute (5) Cancer related pain Code(s): G89.3 - NEOPLASM RELATED PAIN (ACUTE) (CHRONIC) Status: Acute (6) Physical deconditioning Code(s): R53.81 - OTHER MALAISE Status: Acute (7) Obesity (BMI 30.0-34.9) Code(s): E66.9 - OBESITY, UNSPECIFIED Status: Chronic (8) Hypertension Code(s): I10 - ESSENTIAL (PRIMARY) HYPERTENSION Status: Chronic (9) Anemia of chronic disease Code(s): D63.8 - ANEMIA IN OTHER CHRONIC DISEASES CLASSIFIED ELSEWHERE Status: Chronic (10) Thrombocytopenia Code(s): D69.6 - THROMBOCYTOPENIA, UNSPECIFIED Status: Chronic - Plan old records reviewed/req, continue antibiotics, PT/OT, social work nurse Continue Rocephin for UTI, as patient has leukocytosis as well as patient has indwelling catheter will prefer her to continue Rocephin, Continue PT OT as tolerated Medication reviewed and continue provide symptomatic and supportive care continue current treatment plan for now she will need placement eventually
[2020-04-15] MEDS: Levothyroxine Sodium 112 MCG TAB PO SCH (19:21)
[2020-04-15] MEDS: Melatonin 3 MG TAB PO PRN (20:43)
[2020-04-15] MEDS: Simethicone Chewable 80 MG TAB PO PRN (21:04)
--- NOTE | 2020-04-15 21:51 | PRG ---
DATE OF SERVICE: 04/15/2020 SUBJECTIVE: Patient seen and noted with the following vital signs. OBJECTIVE: VITAL SIGNS: Afebrile with temperature 97.9, pulse 94, blood pressure 119/58, respiratory rate of 16, O2 saturations of 95%. HEENT EXAMINATION: Unremarkable. CARDIOVASCULAR SYSTEM: First and second heart sounds were heard. RESPIRATORY SYSTEM: Clear to auscultation. DIGESTIVE SYSTEM: Revealed a benign abdomen. EXTREMITIES: No peripheral edema. SKIN EXAMINATION: No new gross rash. LYMPHATICS: No peripheral lymphadenopathy. LABORATORY INVESTIGATION: Showed a sodium of 125. IMPRESSION: 1. Hyponatremia in the context of syndrome of inappropriate antidiuretic hormone secretion. 2. Syndrome of inappropriate antidiuretic hormone secretion. PLAN: 1. Continue fluid restriction with increased protein intake. However, if these conservative measures are not enough, we will start this patient back on anti-ADH. 2. Further management to be dependent on the clinical course. Job ID: [id number]
[2020-04-16] MEDS: cefTRIAXone\\ROCEPHIN 1 GM in Sodium Chloride 0.9% 100 ML IVPB SCH (00:50)
[2020-04-16] MEDS: Levothyroxine Sodium 112 MCG TAB PO SCH (05:29)
[2020-04-16 06:37] LABS: ALT (SGPT) 99 U/L (8-55); AST (SGOT) 85 U/L (5-34); Albumin 2.8 g/dL (3.4-4.8); Alkaline Phosphatase 858 U/L (40-110); Anion Gap 14 mmol/L (10-20); BUN (Urea Nitrogen) 22 mg/dL (9.8-20.1); Bilirubin, Total 0.4 mg/dL (0.2-1.2); Calc. Creatinine Clearance 87 mL/min (70-130); Carbon Dioxide 27 mmol/L (23-31); Chloride 91 mmol/L (98-107); Globulin 2.5 g/dL (2.4-3.5); Glucose 100 mg/dL (83-110); Potassium 4.6 mmol/L (3.5-5.1); Protein, Total 5.3 g/dL (5.8-8.1); Sodium 127 mmol/L (136-145)
[2020-04-16 07:53] LABS: Hemoglobin 11.8 g/dL (12.0-16.0); Mean Corpuscular HGB CONC 32.5 g/dL (32.0-36.0); Mean Corpuscular Hemoglobin 30.4 pg (27.0-31.0); Mean Corpuscular Volume 93.4 fL (78.0-98.0); Platelet Count 96 thou/uL (130-400); RBC Distribution Width 16.3 % (11.5-14.5); Red Blood Cell (RBC) Count 3.89 mill/uL (4.20-5.40); White Blood Cell (WBC) Count 14.5 thou/uL (4.8-10.8)
[2020-04-16 08:28] LABS: Band 28 % (5-11); Lymphocytes 13 % (21-51); MDiff Complete? YES; Metamyelocyte 4 % (0-0); Monocytes 4 % (0-10); Myelocyte 4 % (0-0); Neutrophil 45 % (42-75); Platelet Morphology Comment Appears Decreased; Polychromasia MODERATE = 3-4 cells (100X) (0-2/hpf); Reactive Lymphocytes 2 % (0-10)
--- NOTE | 2020-04-16 11:37 | PDOC.HOSPP ---
- Subjective Encounter Date: 04/16/20 Encounter Time: 10:30 Subjective: Patient seen and examined. No new complaints. No overnight events - Objective Vital Signs & Weight: Vital Signs (12 hours) Temp Pulse Resp BP Pulse Ox 04/16/20 07:04 97.6 F 91 16 128/66 93 L Weight Admit Weight 153 lb 4 oz Weight 153 lb 4 oz I&O: 04/15/20 04/16/20 04/17/20 06:59 06:59 06:59 Intake Total 1440 587 Output Total 750 1100 Balance 690 -513 Result Diagrams: 04/16/20 05:56 04/16/20 05:56 Hospitalist ROS - Review of Systems Constitutional: reports: weakness. denies: fever, chills, sweats, malaise, other Respiratory: denies: cough, dry, shortness of breath, hemoptysis, SOB with excertion, pleuritic pain, sputum, wheezing, other Cardiovascular: denies: chest pain, palpitations, orthopnea, paroxysmal noc. dyspnea, edema, light headedness, other Gastrointestinal: denies: nausea, vomiting, abdominal pain, diarrhea, cons tipation, melena, hematochezia, other Genitourinary: denies: dysuria, frequency, incontinence, hematuria, retention, other Musculoskeletal: denies: neck pain, shoulder pain, arm pain, back pain, hand pain, leg pain, foot pain, other - Medication Medications: Active Medications Generic Name Dose Route Start Last Admin Trade Name Freq PRN Reason Stop Dose Admin Acetaminophen 650 mg 04/02/20 13:26 04/14/20 11:59 Acetaminophen 325 Mg Tab PO 650 mg Q4H PRN Administration Headache/Fever/Mild Pain (1-3) Cyanocobalamin 1,000 mcg 04/11/20 09:00 04/15/20 10:00 Cyanocobalamin (Vitamin B-12) 1,000 Mcg Tab PO 1,000 mcg DAILY CANDE Administration Dexamethasone 4 mg 04/03/20 17:00 04/15/20 18:47 Dexamethasone 4 Mg Tab PO 4 mg BID- CANDE Administration Enoxaparin Sodium 40 mg 04/03/20 09:00 04/15/20 10:00 Enoxaparin Sodium 40 Mg/0.4 Ml Syringe SC 40 mg 0900 CANDE Administration Fentanyl 50 mcg 04/13/20 23:00 04/13/20 22:35 Fentanyl 50 Mcg/Hour Patch TD 50 mcg Q3D@2300 CANDE Administration Fluticasone Propionate 0 gm 04/11/20 09:00 04/15/20 10:00 Fluticasone Propionate Nasal [place] 16 Gm Bottle NASAL 2 sprays DAILY CANDE Administration Folic Acid 1 mg 04/11/20 09:00 04/15/20 10:00 Folic Acid 1 Mg Tab PO 1 mg DAILY CANDE Administration Ceftriaxone Sodium 1 gm/ 100 mls @ 200 mls/hr 04/07/20 23:59 04/16/20 00:50 Sodium Chloride IVPB 100 mls Q24HR CANDE Administration Iron/Minerals/Multivitamins 1 tab 04/11/20 09:00 04/15/20 10:00 Multivitamin W/ Minerals 1 Tab PO 1 tab DAILY CANDE Administration Levothyroxine Sodium 112 mcg 04/03/20 06:00 04/16/20 05:29 Levothyroxine Sodium 112 Mcg Tab PO 112 mcg 0600 CANDE Administration Lisinopril 20 mg 04/03/20 09:00 04/15/20 10:00 Lisinopril 20 Mg Tab PO 20 mg DAILY CANDE Administration Melatonin 3 mg 04/02/20 20:51 04/15/20 20:43 Melatonin 3 Mg Tab PO 3 mg HSPRN PRN Administration Insomnia Memantine 10 mg 04/03/20 09:00 04/15/20 10:00 Memantine Hcl 10 Mg Tab PO 10 mg DAILY CANDE Administration Montelukast Sodium 10 mg 04/03/20 09:00 04/15/20 10:00 Montelukast Sodium 10 Mg Tablet PO 10 mg DAILY CANDE Administration Ondansetron HCl 4 mg 04/10/20 07:34 04/12/20 16:34 Ondansetron Odt 4 Mg Tab SL 4 mg Q6H PRN Administration Nausea/Vomiting Pantoprazole Sodium 40 mg 04/04/20 09:00 04/15/20 10:00 Pantoprazole 40 Mg Tab PO 40 mg DAILY CANDE Administration Polyethylene Glycol 17 gm 04/10/20 09:00 04/15/20 20:06 Polyethylene Glycol 3350 17 Gm Packet PO Not Given BID CANDE Simethicone 80 mg 04/15/20 20:08 04/15/20 21:04 Simethicone Chewable 80 Mg Tab PO 80 mg Q6H PRN Administration Gas Pain Sodium Chloride 10 ml 04/02/20 13:26 04/14/20 08:56 Flush - Normal Saline 10 Ml Syringe IVF 10 ml PRN PRN Administration Saline Flush Sodium Chloride 1 gm 04/06/20 09:00 04/15/20 20:43 Sodium Chloride 1 Gm Tab PO 1 gm TID CANDE Administration Sodium Chloride 0 ml 04/10/20 07:34 04/13/20 14:46 Sodium Chloride 0.65% Nasal 44 Ml Bot EA NARE 1 spr QIDPRN PRN Administration Nasal Congestion Hospitalist Exam Vitals: Vital Signs (12 hours) Temp Pulse Resp BP Pulse Ox 04/16/20 07:04 97.6 F 91 16 128/66 93 L Weight Admit Weight 153 lb 4 oz Weight 153 lb 4 oz General Appearance: NAD, awake alert Eye: PERRL, anicteric sclera ENT: normocephalic atraumatic, no oropharyngeal lesions Neck: supple, symmetric, no JVD Heart: no murmur, no gallops, no rubs Respiratory: no wheezes, no rales, no ronchi Gastrointestinal: soft, non-tender, non-distended, normal bowel sounds Extremities: no cyanosis, no clubbing, no edema Skin: normal turgor, no lesions Neurological: no new deficit Musculoskeletal: generalized weakness Psychiatric: normal affect, normal behavior Hosp A/P (1) Breast cancer metastasized to bone Code(s): C50.919 - MALIGNANT NEOPLASM OF UNSP SITE OF UNSPECIFIED FEMALE BREAST; C79.51 - SECONDARY MALIGNANT NEOPLASM OF BONE Status: Chronic (2) UTI (urinary tract infection) Status: Acute Qualifiers: Urinary tract infection type: acute cystitis Hematuria presence: without hematuria Qualified Code(s): N30.00 - Acute cystitis without hematuria (3) Hyponatremia Code(s): E87.1 - HYPO-OSMOLALITY AND HYPONATREMIA Status: Acute (4) Transaminitis Code(s): R74.01 - ELEVATION OF LEVELS OF LIVER TRANSAMINASE LEVELS Status: Acute (5) Cancer related pain Code(s): G89.3 - NEOPLASM RELATED PAIN (ACUTE) (CHRONIC) Status: Acute (6) Physical deconditioning Code(s): R53.81 - OTHER MALAISE Status: Acute (7) Obesity (BMI 30.0-34.9) Code(s): E66.9 - OBESITY, UNSPECIFIED Status: Chronic (8) Hypertension Code(s): I10 - ESSENTIAL (PRIMARY) HYPERTENSION Status: Chronic (9) Anemia of chronic disease Code(s): D63.8 - ANEMIA IN OTHER CHRONIC DISEASES CLASSIFIED ELSEWHERE Status: Chronic (10) Thrombocytopenia Code(s): D69.6 - THROMBOCYTOPENIA, UNSPECIFIED Status: Chronic - Plan old records reviewed/req, clifford catheter, continue antibiotics, PT/OT, social welfare clerk Continue Rocephin for UTI, as patient has leukocytosis as well as patient has indwelling catheter will prefer her to continue Rocephin, Continue PT OT as tolerated Medication reviewed and continue provide symptomatic and supportive care continue current treatment plan for now she will need placement eventually Continue radiation as per radiation oncology
[2020-04-16] MEDS: Simethicone Chewable 80 MG TAB PO PRN (12:15)
[2020-04-16] MEDS: Montelukast Sodium 10 mg Tablet PO SCH (12:15)
[2020-04-16] MEDS: Fluticasone Propionate Nasal Spray 16 gm Bottle NASAL SCH (12:16)
[2020-04-16] MEDS: Lisinopril 20 MG TAB PO SCH (12:16)
[2020-04-16] MEDS: Cyanocobalamin (Vitamin B-12) 1,000 MCG TAB PO SCH (12:16)
[2020-04-16] MEDS: Sodium Chloride 1 GM TAB PO SCH ×3 (12:16→20:22)
[2020-04-16] MEDS: Folic Acid 1 MG TAB PO SCH (12:16)
[2020-04-16] MEDS: Dexamethasone 4 MG TAB PO SCH ×2 (12:16→17:36)
[2020-04-16] MEDS: Multivitamin W/ Minerals 1 TAB PO SCH (12:16)
[2020-04-16] MEDS: Enoxaparin Sodium 40 MG/0.4 ML SYRINGE SC SCH (12:17)
[2020-04-16] MEDS: Polyethylene Glycol 3350 17 GM Packet PO SCH ×2 (12:17→20:21)
[2020-04-16] MEDS: Melatonin 3 MG TAB PO PRN (20:23)
--- NOTE | 2020-04-16 22:31 | PRG ---
DATE OF SERVICE: SUBJECTIVE: Patient noted with the following vital signs. OBJECTIVE: VITAL SIGNS: Afebrile, temperature of 97.6, pulse of 103, respiratory rate of 16, O2 saturation of 92%, blood pressure of 138/66. HEENT: Unremarkable. RESPIRATORY SYSTEM: Clear to auscultation. DIGESTIVE SYSTEM: Revealed a benign abdomen . LABORATORY INVESTIGATION: . Chemistry with a sodium of 107. IMPRESSION: Hyponatremia in the context of syndrome of inappropriate antidiuretic hormone secretion. PLAN: 1. Continue current conservative measures. 2. Further management to be dependent on the clinical course. Job ID: [id number]
[2020-04-17] MEDS: fentaNYL 50 mcg/hour Patch TD SCH (00:09)
[2020-04-17] MEDS: cefTRIAXone\\ROCEPHIN 1 GM in Sodium Chloride 0.9% 100 ML IVPB SCH (00:10)
[2020-04-17] MEDS: Ibuprofen 200 MG TAB PO PRN (04:03)
[2020-04-17] MEDS: Levothyroxine Sodium 112 MCG TAB PO SCH (05:16)
[2020-04-17] MEDS: Multivitamin W/ Minerals 1 TAB PO SCH (09:50)
[2020-04-17] MEDS: Dexamethasone 4 MG TAB PO SCH ×2 (09:50→17:03)
[2020-04-17] MEDS: Folic Acid 1 MG TAB PO SCH (09:50)
[2020-04-17] MEDS: Lisinopril 20 MG TAB PO SCH (09:51)
[2020-04-17] MEDS: Montelukast Sodium 10 mg Tablet PO SCH (09:51)
[2020-04-17] MEDS: Sodium Chloride 1 GM TAB PO SCH ×3 (09:51→20:45)
[2020-04-17] MEDS: Cyanocobalamin (Vitamin B-12) 1,000 MCG TAB PO SCH (09:51)
[2020-04-17] MEDS: Fluticasone Propionate Nasal Spray 16 gm Bottle NASAL SCH (09:53)
[2020-04-17] MEDS: Polyethylene Glycol 3350 17 GM Packet PO SCH ×2 (10:02→20:47)
[2020-04-17] MEDS: Enoxaparin Sodium 40 MG/0.4 ML SYRINGE SC SCH (10:03)
--- NOTE | 2020-04-17 20:12 | PRG ---
DATE OF SERVICE: 04/17/2020 SUBJECTIVE: The patient noted with the following vital signs. OBJECTIVE: VITAL SIGNS: Afebrile, temperature 97, pulse 88, blood pressure 119/58, respiratory rate of 18, O2 saturation 94%. HEENT: Unremarkable. CARDIOVASCULAR SYSTEM: First and second sounds were heard. RESPIRATORY SYSTEM: Clear to auscultation. DIGESTIVE SYSTEM: Revealed a benign abdomen. Positive bowel sounds. EXTREMITIES: No peripheral edema. SKIN: No new gross rash. LYMPHATIC: No peripheral lymphadenopathy. LABORATORY INVESTIGATION: Showed a sodium of 127 as of yesterday. IMPRESSION: Hyponatremia in the context of syndrome of inappropriate antidiuretic hormone secretion. PLAN: 1. Continue increased protein intake in the way of animal meat. 2. Avoid excessive free water intake. 3. Further management to be dependent on the clinical course. Job ID: [id number]
[2020-04-17] MEDS: Melatonin 3 MG TAB PO PRN (20:45)
--- NOTE | 2020-04-17 20:55 | PDOC.HOSPP ---
- Subjective Encounter Date: 04/17/20 Subjective: Patient denies any complaints - Objective Vital Signs & Weight: Vital Signs (12 hours) Temp Pulse Resp BP BP Pulse Ox 04/17/20 19:56 98.1 F 103 H 14 128/59 L 93 L 04/17/20 09:51 119/58 L Weight Admit Weight 153 lb 4 oz Weight 153 lb 4 oz I&O: 04/16/20 04/17/20 04/18/20 06:59 06:59 06:59 Intake Total 587 717 740 Output Total 1100 1250 1300 Balance -513 -533 -560 Result Diagrams: 04/16/20 05:56 04/16/20 05:56 Hospitalist ROS - Medication Medications: Active Medications Generic Name Dose Route Start Last Admin Trade Name Freq PRN Reason Stop Dose Admin Acetaminophen 650 mg 04/02/20 13:26 04/14/20 11:59 Acetaminophen 325 Mg Tab PO 650 mg Q4H PRN Administration Headache/Fever/Mild Pain (1-3) Cyanocobalamin 1,000 mcg 04/11/20 09:00 04/17/20 09:51 Cyanocobalamin (Vitamin B-12) 1,000 Mcg Tab PO 1,000 mcg DAILY CANDE Administration Dexamethasone 4 mg 04/03/20 17:00 04/17/20 17:03 Dexamethasone 4 Mg Tab PO 4 mg BID-WM CANDE Administration Enoxaparin Sodium 40 mg 04/03/20 09:00 04/17/20 10:03 Enoxaparin Sodium 40 Mg/0.4 Ml Syringe SC Not Given 0900 CANDE Fentanyl 50 mcg 04/13/20 23:00 04/17/20 00:09 Fentanyl 50 Mcg/Hour Patch TD 50 mcg Q3D@2300 CANDE Administration Fluticasone Propionate 0 gm 04/11/20 09:00 04/17/20 09:53 Fluticasone Propionate Nasal [place] 16 Gm Bottle NASAL 2 sprays DAILY CANDE Administration Folic Acid 1 mg 04/11/20 09:00 04/17/20 09:50 Folic Acid 1 Mg Tab PO 1 mg DAILY CANDE Administration Ibuprofen 400 mg 04/10/20 07:34 04/17/20 04:03 Ibuprofen 200 Mg Tab PO 400 mg Q4H PRN Administration Fever > 101 Iron/Minerals/Multivitamins 1 tab 04/11/20 09:00 04/17/20 09:50 Multivitamin W/ Minerals 1 Tab PO 1 tab DAILY CANDE Administration Levothyroxine Sodium 112 mcg 04/03/20 06:00 04/17/20 05:16 Levothyroxine Sodium 112 Mcg Tab PO 112 mcg 0600 CANDE Administration Lisinopril 20 mg 04/03/20 09:00 04/17/20 09:51 Lisinopril 20 Mg Tab PO 20 mg DAILY CANDE Administration Melatonin 3 mg 04/02/20 20:51 04/17/20 20:45 Melatonin 3 Mg Tab PO 3 mg HSPRN PRN Administration Insomnia Memantine 10 mg 04/03/20 09:00 04/17/20 09:50 Memantine Hcl 10 Mg Tab PO 10 mg DAILY CANDE Administration Montelukast Sodium 10 mg 04/03/20 09:00 04/17/20 09:51 Montelukast Sodium 10 Mg Tablet PO 10 mg DAILY CANDE Administration Ondansetron HCl 4 mg 04/10/20 07:34 04/12/20 16:34 Ondansetron Odt 4 Mg Tab SL 4 mg Q6H PRN Administration Nausea/Vomiting Pantoprazole Sodium 40 mg 04/04/20 09:00 04/17/20 09:51 Pantoprazole 40 Mg Tab PO 40 mg DAILY CANDE Administration Polyethylene Glycol 17 gm 04/10/20 09:00 04/17/20 20:47 Polyethylene Glycol 3350 17 Gm Packet PO Not Given BID CANDE Simethicone 80 mg 04/15/20 20:08 04/16/20 12:15 Simethicone Chewable 80 Mg Tab PO 80 mg Q6H PRN Administration Gas Pain Sodium Chloride 10 ml 04/02/20 13:26 04/14/20 08:56 Flush - Normal Saline 10 Ml Syringe IVF 10 ml PRN PRN Administration Saline Flush Sodium Chloride 1 gm 04/06/20 09:00 04/17/20 20:45 Sodium Chloride 1 Gm Tab PO 1 gm TID CANDE Administration Sodium Chloride 0 ml 04/10/20 07:34 04/13/20 14:46 Sodium Chloride 0.65% Nasal 44 Ml Bot EA NARE 1 spr QIDPRN PRN Administration Nasal Congestion Hospitalist Exam Vitals: Vital Signs (12 hours) Temp Pulse Resp BP BP Pulse Ox 04/17/20 19:56 98.1 F 103 H 14 128/59 L 93 L 04/17/20 09:51 119/58 L Weight Admit Weight 153 lb 4 oz Weight 153 lb 4 oz General Appearance: NAD Eye: PERRL ENT: normocephalic atraumatic Neck: supple, symmetric Heart: RRR, no murmur Respiratory: CTAB, no wheezes, no rales Gastrointestinal: soft, non-tender Hosp A/P (1) Breast cancer metastasized to bone Code(s): C50.919 - MALIGNANT NEOPLASM OF UNSP SITE OF UNSPECIFIED FEMALE BREAST; C79.51 - SECONDARY MALIGNANT NEOPLASM OF BONE Status: Chronic (2) Transaminitis Code(s): R74.01 - ELEVATION OF LEVELS OF LIVER TRANSAMINASE LEVELS Status: Acute (3) Hypertension Code(s): I10 - ESSENTIAL (PRIMARY) HYPERTENSION Status: Chronic (4) Hyponatremia Code(s): E87.1 - HYPO-OSMOLALITY AND HYPONATREMIA Status: Acute - Plan Plan for today 04/17 Patient has not been complaining of her pain it seems that is controlled well with fentanyl controlled. 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 Her urine culture positive for E. coli she received 10 days of Rocephin I will stop that medication. She continues to receive radiation therapy.
[2020-04-18 04:57] LABS: Anion Gap 14 mmol/L (10-20); BUN (Urea Nitrogen) 22 mg/dL (9.8-20.1); Calc. Creatinine Clearance 95 mL/min (70-130); Calcium 7.8 mg/dL (7.8-10.44); Carbon Dioxide 22 mmol/L (23-31); Chloride 99 mmol/L (98-107); Glucose 138 mg/dL (83-110); Potassium 4.6 mmol/L (3.5-5.1); Sodium 130 mmol/L (136-145)
[2020-04-18] MEDS: Levothyroxine Sodium 112 MCG TAB PO SCH (06:04)
[2020-04-18 07:15] LABS: Hemoglobin 11.1 g/dL (12.0-16.0); Mean Corpuscular HGB CONC 32.1 g/dL (32.0-36.0); Mean Corpuscular Volume 93.3 fL (78.0-98.0); Mean Platelet Volume 9.4 fL (7.4-10.4); Platelet Count 87 thou/uL (130-400); RBC Distribution Width 16.4 % (11.5-14.5)
[2020-04-18] MEDS: Folic Acid 1 MG TAB PO SCH (08:25)
[2020-04-18] MEDS: Dexamethasone 4 MG TAB PO SCH ×2 (08:25→16:56)
[2020-04-18] MEDS: Fluticasone Propionate Nasal Spray 16 gm Bottle NASAL SCH (08:25)
[2020-04-18] MEDS: Cyanocobalamin (Vitamin B-12) 1,000 MCG TAB PO SCH (08:26)
[2020-04-18] MEDS: Montelukast Sodium 10 mg Tablet PO SCH (08:26)
[2020-04-18] MEDS: Multivitamin W/ Minerals 1 TAB PO SCH (08:26)
[2020-04-18] MEDS: Sodium Chloride 1 GM TAB PO SCH ×3 (08:26→20:05)
[2020-04-18] MEDS: Lisinopril 20 MG TAB PO SCH (08:26)
[2020-04-18] MEDS: Polyethylene Glycol 3350 17 GM Packet PO SCH ×2 (09:29→20:06)
[2020-04-18] MEDS: Enoxaparin Sodium 40 MG/0.4 ML SYRINGE SC SCH (09:29)
[2020-04-18 09:45] LABS: Band 28 % (5-11); Lymphocytes 12 % (21-51); MDiff Complete? YES; Metamyelocyte 3 % (0-0); Monocytes 6 % (0-10); Myelocyte 7 % (0-0); Neutrophil 38 % (42-75); Nucleated RBC 1 % (0); Platelet Morphology Comment Appears Decreased; Polychromasia SLIGHT = 2-3 cells (100X) (0-2/hpf); Reactive Lymphocytes 6 % (0-10)
[2020-04-18] MEDS: Ibuprofen 200 MG TAB PO PRN (12:42)
--- NOTE | 2020-04-18 17:31 | PDOC.HOSPP ---
- Subjective Subjective: Denies any distress. - Objective Vital Signs & Weight: Vital Signs (12 hours) Temp Pulse Resp BP BP Pulse Ox 04/18/20 08:26 128/78 04/18/20 07:52 98.0 F 86 16 128/78 93 L Weight Admit Weight 153 lb 4 oz Weight 153 lb 4 oz I&O: 04/17/20 04/18/20 04/19/20 06:59 06:59 06:59 Intake Total 717 1500 Output Total 1250 0 Balance -533 -550 Result Diagrams: 04/18/20 06:57 04/18/20 04:35 Hospitalist ROS - Medication Medications: Active Medications Generic Name Dose Route Start Last Admin Trade Name Freq PRN Reason Stop Dose Admin Acetaminophen 650 mg 04/02/20 13:26 04/14/20 11:59 Acetaminophen 325 Mg Tab PO 650 mg Q4H PRN Administration Headache/Fever/Mild Pain (1-3) Cyanocobalamin 1,000 mcg 04/11/20 09:00 04/18/20 08:26 Cyanocobalamin (Vitamin B-12) 1,000 Mcg Tab PO 1,000 mcg DAILY CANDE Administration Dexamethasone 4 mg 04/03/20 17:00 04/18/20 16:56 Dexamethasone 4 Mg Tab PO 4 mg BID-WM CANDE Administration Enoxaparin Sodium 40 mg 04/03/20 09:00 04/18/20 09:29 Enoxaparin Sodium 40 Mg/0.4 Ml Syringe SC Not Given 0900 CANDE Fentanyl 50 mcg 04/13/20 23:00 04/17/20 00:09 Fentanyl 50 Mcg/Hour Patch TD 50 mcg Q3D@2300 CANDE Administration Fluticasone Propionate 0 gm 04/11/20 09:00 04/18/20 08:25 Fluticasone Propionate Nasal [place] 16 Gm Bottle NASAL 2 sprays DAILY CANDE Administration Folic Acid 1 mg 04/11/20 09:00 04/18/20 08:25 Folic Acid 1 Mg Tab PO 1 mg DAILY CANDE Administration Ibuprofen 400 mg 04/10/20 07:34 04/18/20 12:42 Ibuprofen 200 Mg Tab PO 400 mg Q4H PRN Administration Fever > 101 Iron/Minerals/Multivitamins 1 tab 04/11/20 09:00 04/18/20 08:26 Multivitamin W/ Minerals 1 Tab PO 1 tab DAILY CANDE Administration Levothyroxine Sodium 112 mcg 04/03/20 06:00 04/18/20 06:04 Levothyroxine Sodium 112 Mcg Tab PO 112 mcg 0600 CANDE Administration Lisinopril 20 mg 04/03/20 09:00 04/18/20 08:26 Lisinopril 20 Mg Tab PO 20 mg DAILY CANDE Administration Melatonin 3 mg 04/02/20 20:51 04/17/20 20:45 Melatonin 3 Mg Tab PO 3 mg HSPRN PRN Administration Insomnia Memantine 10 mg 04/03/20 09:00 04/18/20 08:25 Memantine Hcl 10 Mg Tab PO 10 mg DAILY CANDE Administration Montelukast Sodium 10 mg 04/03/20 09:00 04/18/20 08:26 Montelukast Sodium 10 Mg Tablet PO 10 mg DAILY CANDE Administration Ondansetron HCl 4 mg 04/10/20 07:34 04/12/20 16:34 Ondansetron Odt 4 Mg Tab SL 4 mg Q6H PRN Administration Nausea/Vomiting Pantoprazole Sodium 40 mg 04/04/20 09:00 04/18/20 08:26 Pantoprazole 40 Mg Tab PO 40 mg DAILY CANDE Administration Polyethylene Glycol 17 gm 04/10/20 09:00 04/18/20 09:29 Polyethylene Glycol 3350 17 Gm Packet PO Not Given BID CANDE Simethicone 80 mg 04/15/20 20:08 04/16/20 12:15 Simethicone Chewable 80 Mg Tab PO 80 mg Q6H PRN Administration Gas Pain Sodium Chloride 10 ml 04/02/20 13:26 04/18/20 16:57 Flush - Normal Saline 10 Ml Syringe IVF 10 ml PRN PRN Administration Saline Flush Sodium Chloride 1 gm 04/06/20 09:00 04/18/20 15:35 Sodium Chloride 1 Gm Tab PO 1 gm TID CANDE Administration Sodium Chloride 0 ml 04/10/20 07:34 04/13/20 14:46 Sodium Chloride 0.65% Nasal 44 Ml Bot EA NARE 1 spr QIDPRN PRN Administration Nasal Congestion Hospitalist Exam Vitals: Vital Signs (12 hours) Temp Pulse Resp BP BP Pulse Ox 04/18/20 08:26 128/78 04/18/20 07:52 98.0 F 86 16 128/78 93 L Weight Admit Weight 153 lb 4 oz Weight 153 lb 4 oz General Appearance: NAD Eye: PERRL ENT: normocephalic atraumatic Neck: supple, symmetric, no JVD Heart: RRR, no murmur, no gallops Respiratory: CTAB, no wheezes, no rales Gastrointestinal: soft, non-tender, non-distended Hosp A/P (1) Breast cancer metastasized to bone Code(s): C50.919 - MALIGNANT NEOPLASM OF UNSP SITE OF UNSPECIFIED FEMALE BREAST; C79.51 - SECONDARY MALIGNANT NEOPLASM OF BONE Status: Chronic (2) Transaminitis Code(s): R74.01 - ELEVATION OF LEVELS OF LIVER TRANSAMINASE LEVELS Status: Acute (3) Hypertension Code(s): I10 - ESSENTIAL (PRIMARY) HYPERTENSION Status: Chronic (4) Hyponatremia Code(s): E87.1 - HYPO-OSMOLALITY AND HYPONATREMIA Status: Acute - Plan Plan for today 04/17 Patient has not been complaining of her pain it seems that is controlled well with fentanyl controlled. 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 Her urine culture positive for E. coli she received 10 days of Rocephin I will stop that medication. She continues to receive radiation therapy. Plan for today 04/18 Patient's pain remains controlled, her sodium is better today seems like it is fluctuating on a daily basis but she is asymptomatic from that, she remains afebrile after stopping Rocephin, she continues to see radiation therapy. I will give her a lab holiday tomorrow.
[2020-04-18] MEDS: Melatonin 3 MG TAB PO PRN (20:05)
[2020-04-19] MEDS: Levothyroxine Sodium 112 MCG TAB PO SCH (06:12)
[2020-04-19] MEDS: Montelukast Sodium 10 mg Tablet PO SCH (09:23)
[2020-04-19] MEDS: Dexamethasone 4 MG TAB PO SCH ×2 (09:23→17:28)
[2020-04-19] MEDS: Folic Acid 1 MG TAB PO SCH (09:23)
[2020-04-19] MEDS: Multivitamin W/ Minerals 1 TAB PO SCH (09:23)
[2020-04-19] MEDS: Polyethylene Glycol 3350 17 GM Packet PO SCH ×2 (09:23→21:08)
[2020-04-19] MEDS: Enoxaparin Sodium 40 MG/0.4 ML SYRINGE SC SCH (09:23)
[2020-04-19] MEDS: Lisinopril 20 MG TAB PO SCH (09:23)
[2020-04-19] MEDS: Cyanocobalamin (Vitamin B-12) 1,000 MCG TAB PO SCH (09:23)
[2020-04-19] MEDS: Sodium Chloride 1 GM TAB PO SCH ×3 (09:23→21:07)
[2020-04-19] MEDS: Fluticasone Propionate Nasal Spray 16 gm Bottle NASAL SCH (09:40)
[2020-04-19] MEDS: Acetaminophen 325 MG TAB PO PRN (14:17)
--- NOTE | 2020-04-19 14:26 | PQF ---
CLINICAL DOCUMENTATION CLARIFICATION FORM: Dear Dr. REJI CH Date: 04-19-20 Please exercise your independent, professional judgment in responding to the clarification form. Clinical indicators are provided on the bottom of this form for your review. Please check appropriate box(es): [ y ] Protein Calorie Malnutrition: [ ] Mild [ y ] Moderate [ ] Severe [ ] Other Malnutrition (please specify) [ ] Other diagnosis [ ] Unable to determine In addition, please specify: Present on Admission (POA): [ ] Yes [ ] No [ ] Unable to determine For continuity of documentation, please document condition throughout progress notes and discharge summary. Thank You. To be completed by CDI/Coding staff for physician review: CLINICAL INDICATORS - SIGNS / SYMPTOMS / LABS / RESULTS AND LOCATION IN MR: PN 04-08-20 DR. CH: MALNUTRITION, DIETARY RECOMMENDING PPN, WILL DISCUSS WITH ONCOLOGY, WILL CONTINUE IVF GAS PUMPER CONSULT 04-17-20: <50% energy intake compared to estimated energy needs for > 5 days, 1.8% weight loss over the past 1 week, mild to moderate temporal muscle wasting suggestive of severe malnutrition in the context of acute on chronic illness GAS PUMPER CONSULT 04-17-20: recent sacral fracture, oncology with likely mets ; Stage II pressure ulcer noted to sacrum RISK FACTORS / RESULTS AND LOCATION IN MR: GAS PUMPER CONSULT 04-17-20: <50% energy intake compared to estimated energy needs for > 5 days, 1.8% weight loss over the past 1 week, mild to moderate temporal muscle wasting suggestive of severe malnutrition in the context of acute on chronic illness TREATMENT / RESULTS AND LOCATION IN MR: GAS PUMPER CONSULT 04-17-20: 1. Continue liberalized Regular diet to promote PO intake. is ordering meals and bringing a smoothie from home for breakfast 2. Continue Ensure Enlive TID, patient prefers vanilla flavor and chilled. 3. If PPN becomes available, recommend PPN at 55 mL/hr. 4. Provide scheduled bowel regimen. Moderate Malnutrition (in acute illness) Energy Intake: <75% of estimated energy requirement for > 7 days Weight Loss: 1-2%/1 week; 5%/ 1 month; 7.5%/3 months Other: mild body fat loss; mild muscle mass loss; mild fluid accumulation; Severe Malnutrition (in acute illness) Energy Intake: = 50% of estimated energy requirement for = 5 days Weight Loss: >2%/1 week; >5%/1 month; >7.5%/3 months Other: moderate body fat loss; moderate muscle mass loss; moderate- severe fluid accumulation; measurably reduced belt repairer strength Moderate Malnutrition (in chronic illness) Energy Intake: <75% of estimated energy requirement for =1 month Weight Loss: 5%/1 month; 7.5%/3 months; 10%/6 months; 20%/1 year Other: mild body fat loss; mild muscle mass loss; mild fluid accumulation Severe Malnutrition (in chronic illness) Energy Intake: =75% of estimated energy requirement for =1 month Weight Loss: >5%/1 month; >7.5%/3 months; >10%/6 months; >20%/1 year Other: severe body fat loss; severe muscle mass loss; severe fluid accumulation; measurably reduced belt repairer strength CDS Signature: Ingrid Shah Phone #: [phone] Date: 04-19-20 This is a permanent part of the Medical Record [facility]
--- NOTE | 2020-04-19 17:01 | PDOC.MOPN ---
Interval History: Patient more alert, less pain. - Vital Signs Vital Signs: Vital Signs (12 hours) Temp Pulse Resp BP BP Pulse Ox 04/19/20 09:23 134/73 04/19/20 08:00 98.2 F 84 16 134/73 93 L Weight Admit Weight 153 lb 4 oz Weight 153 lb 4 oz - Physical Exam General: Alert, No acute distress Lungs: Clear to auscultation Cardiovascular: Regular rate Abdomen: Normal bowel sounds Neurological: Normal speech - Labs Result Diagrams: 04/18/20 06:57 04/18/20 04:35 Status: lab reviewed by me A/P - Problem (1) Breast cancer metastasized to bone Current Visit: Yes Code(s): C50.919 - MALIGNANT NEOPLASM OF UNSP SITE OF UNSPECIFIED FEMALE BREAST; C79.51 - SECONDARY MALIGNANT NEOPLASM OF BONE Status: Chronic - Plan Plan: Xrt completes tomorrow await placement, likely discharge on Wednesday if approved follow-up clinic to discuss therapy.
--- NOTE | 2020-04-19 17:16 | PRG ---
DATE OF SERVICE: 04/19/2020 SUBJECTIVE: The patient noted with the following vital signs. OBJECTIVE: VITAL SIGNS: Afebrile, temperature 98.2, pulse 84, blood pressure 134/73. HEENT: Unremarkable. CARDIOVASCULAR SYSTEM: First and second heart sounds were heard. RESPIRATORY SYSTEM: Clear to auscultation. DIGESTIVE SYSTEM: Revealed a benign abdomen. Positive bowel sounds. EXTREMITIES: No peripheral edema. SKIN: No new gross rash. LYMPHATICS: No peripheral lymphadenopathy. LABORATORY INVESTIGATION: Showed a sodium of 130. IMPRESSION: Hyponatremia in the context of syndrome of inappropriate antidiuretic hormone secretion. PLAN: Continue current renal supportive measures. Job ID: [id number]
--- NOTE | 2020-04-19 20:28 | PDOC.HOSPP ---
- Subjective Encounter Date: 04/19/20 Subjective: Well-appearing has no specific complaints. - Objective Vital Signs & Weight: Vital Signs (12 hours) Temp Pulse Resp BP BP Pulse Ox 04/19/20 19:50 98.5 F 104 H 14 134/65 93 L 04/19/20 09:23 134/73 Weight Admit Weight 153 lb 4 oz Weight 153 lb 4 oz I&O: 04/18/20 04/19/20 04/20/20 06:59 06:59 06:59 Intake Total 1500 2400 2160 Output Total 2050 2800 1050 Balance -550 -400 1110 Result Diagrams: 04/18/20 06:57 04/18/20 04:35 Hospitalist ROS - Medication Medications: Active Medications Generic Name Dose Route Start Last Admin Trade Name Freq PRN Reason Stop Dose Admin Acetaminophen 650 mg 04/02/20 13:26 04/19/20 14:17 Acetaminophen 325 Mg Tab PO 650 mg Q4H PRN Administration Headache/Fever/Mild Pain (1-3) Cyanocobalamin 1,000 mcg 04/11/20 09:00 04/19/20 09:23 Cyanocobalamin (Vitamin B-12) 1,000 Mcg Tab PO 1,000 mcg DAILY CANDE Administration Dexamethasone 4 mg 04/03/20 17:00 04/19/20 17:28 Dexamethasone 4 Mg Tab PO 4 mg BID-WM CANDE Administration Enoxaparin Sodium 40 mg 04/03/20 09:00 04/19/20 09:23 Enoxaparin Sodium 40 Mg/0.4 Ml Syringe SC 40 mg 0900 CANDE Administration Fentanyl 50 mcg 04/13/20 23:00 04/17/20 00:09 Fentanyl 50 Mcg/Hour Patch TD 50 mcg Q3D@2300 CANDE Administration Fluticasone Propionate 0 gm 04/11/20 09:00 04/19/20 09:40 Fluticasone Propionate Nasal [place] 16 Gm Bottle NASAL 2 spray DAILY CANDE Administration Folic Acid 1 mg 04/11/20 09:00 04/19/20 09:23 Folic Acid 1 Mg Tab PO 1 mg DAILY CANDE Administration Ibuprofen 400 mg 04/10/20 07:34 04/18/20 12:42 Ibuprofen 200 Mg Tab PO 400 mg Q4H PRN Administration Fever > 101 Iron/Minerals/Multivitamins 1 tab 04/11/20 09:00 04/19/20 09:23 Multivitamin W/ Minerals 1 Tab PO 1 tab DAILY CANDE Administration Levothyroxine Sodium 112 mcg 04/03/20 06:00 04/19/20 06:12 Levothyroxine Sodium 112 Mcg Tab PO 112 mcg 0600 CANDE Administration Lisinopril 20 mg 04/03/20 09:00 04/19/20 09:23 Lisinopril 20 Mg Tab PO 20 mg DAILY CANDE Administration Melatonin 3 mg 04/02/20 20:51 04/18/20 20:05 Melatonin 3 Mg Tab PO 3 mg HSPRN PRN Administration Insomnia Memantine 10 mg 04/03/20 09:00 04/19/20 09:23 Memantine Hcl 10 Mg Tab PO 10 mg DAILY CANDE Administration Montelukast Sodium 10 mg 04/03/20 09:00 04/19/20 09:23 Montelukast Sodium 10 Mg Tablet PO 10 mg DAILY CANDE Administration Ondansetron HCl 4 mg 04/10/20 07:34 04/12/20 16:34 Ondansetron Odt 4 Mg Tab SL 4 mg Q6H PRN Administration Nausea/Vomiting Pantoprazole Sodium 40 mg 04/04/20 09:00 04/19/20 09:23 Pantoprazole 40 Mg Tab PO 40 mg DAILY CANDE Administration Polyethylene Glycol 17 gm 04/10/20 09:00 04/19/20 09:23 Polyethylene Glycol 3350 17 Gm Packet PO 17 gm BID CANDE Administration Simethicone 80 mg 04/15/20 20:08 04/16/20 12:15 Simethicone Chewable 80 Mg Tab PO 80 mg Q6H PRN Administration Gas Pain Sodium Chloride 10 ml 04/02/20 13:26 04/18/20 16:57 Flush - Normal Saline 10 Ml Syringe IVF 10 ml PRN PRN Administration Saline Flush Sodium Chloride 1 gm 04/06/20 09:00 04/19/20 17:28 Sodium Chloride 1 Gm Tab PO 1 gm TID CANDE Administration Sodium Chloride 0 ml 04/10/20 07:34 04/13/20 14:46 Sodium Chloride 0.65% Nasal 44 Ml Bot EA NARE 1 spr QIDPRN PRN Administration Nasal Congestion Hospitalist Exam Vitals: Vital Signs (12 hours) Temp Pulse Resp BP BP Pulse Ox 04/19/20 19:50 98.5 F 104 H 14 134/65 93 L 04/19/20 09:23 134/73 Weight Admit Weight 153 lb 4 oz Weight 153 lb 4 oz General Appearance: NAD Eye: PERRL, anicteric sclera ENT: normocephalic atraumatic Neck: supple, symmetric Heart: RRR, no murmur Respiratory: CTAB, no wheezes, no rales Gastrointestinal: soft, non-tender, non-distended Extremities: no cyanosis, no clubbing Hosp A/P (1) Breast cancer metastasized to bone Code(s): C50.919 - MALIGNANT NEOPLASM OF UNSP SITE OF UNSPECIFIED FEMALE BREAST; C79.51 - SECONDARY MALIGNANT NEOPLASM OF BONE Status: Chronic (2) Transaminitis Code(s): R74.01 - ELEVATION OF LEVELS OF LIVER TRANSAMINASE LEVELS Status: Acute (3) Hypertension Code(s): I10 - ESSENTIAL (PRIMARY) HYPERTENSION Status: Chronic (4) Hyponatremia Code(s): E87.1 - HYPO-OSMOLALITY AND HYPONATREMIA Status: Acute - Plan Plan for today 04/17 Patient has not been complaining of her pain it seems that is controlled well with fentanyl controlled. 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 Her urine culture positive for E. coli she received 10 days of Rocephin I will stop that medication. She continues to receive radiation therapy. Plan for today 04/18 Patient's pain remains controlled, her sodium is better today seems like it is fluctuating on a daily basis but she is asymptomatic from that, she remains afebrile after stopping Rocephin, she continues to see radiation therapy. I will give her a lab holiday tomorrow. Plan for today 04/19 Patient continues to do well and undergoing her radiation therapy, on Wednesday possibly she will go to placement, until then continue same management. I will recheck her labs in the morning.
[2020-04-19] MEDS: Melatonin 3 MG TAB PO PRN (21:07)
[2020-04-19] MEDS: fentaNYL 50 mcg/hour Patch TD SCH (22:20)
[2020-04-20 05:22] LABS: Anion Gap 12 mmol/L (10-20); BUN (Urea Nitrogen) 17 mg/dL (9.8-20.1); Calc. Creatinine Clearance 99 mL/min (70-130); Calcium 7.6 mg/dL (7.8-10.44); Carbon Dioxide 24 mmol/L (23-31); Chloride 99 mmol/L (98-107); Glucose 132 mg/dL (83-110); Potassium 4.1 mmol/L (3.5-5.1); Sodium 131 mmol/L (136-145)
[2020-04-20 05:27] LABS: Eosinophils 2 % (0-10); Hemoglobin 10.6 g/dL (12.0-16.0); Lymphocytes 13 % (21-51); MDiff Complete? YES; Mean Corpuscular HGB CONC 32.7 g/dL (32.0-36.0); Mean Corpuscular Hemoglobin 30.5 pg (27.0-31.0); Mean Corpuscular Volume 93.3 fL (78.0-98.0); Metamyelocyte 5 % (0-0); Monocytes 7 % (0-10); Neutrophil 72 % (42-75); Nucleated RBC 1 % (0); Platelet Count 59 thou/uL (130-400); Platelet Morphology Comment Appears Decreased; RBC Distribution Width 16.4 % (11.5-14.5); RBC Morphology Normal; Reactive Lymphocytes 1 % (0-10); Red Blood Cell (RBC) Count 3.48 mill/uL (4.20-5.40); White Blood Cell (WBC) Count 13.9 thou/uL (4.8-10.8)
[2020-04-20] MEDS: Levothyroxine Sodium 112 MCG TAB PO SCH (06:43)
[2020-04-20] MEDS: Montelukast Sodium 10 mg Tablet PO SCH (09:09)
[2020-04-20] MEDS: Fluticasone Propionate Nasal Spray 16 gm Bottle NASAL SCH (09:10)
[2020-04-20] MEDS: Cyanocobalamin (Vitamin B-12) 1,000 MCG TAB PO SCH (09:10)
[2020-04-20] MEDS: Polyethylene Glycol 3350 17 GM Packet PO SCH ×2 (09:10→20:28)
[2020-04-20] MEDS: Folic Acid 1 MG TAB PO SCH (09:10)
[2020-04-20] MEDS: Multivitamin W/ Minerals 1 TAB PO SCH (09:10)
[2020-04-20] MEDS: Lisinopril 20 MG TAB PO SCH (09:10)
[2020-04-20] MEDS: Sodium Chloride 1 GM TAB PO SCH ×3 (09:10→20:28)
[2020-04-20] MEDS: Dexamethasone 4 MG TAB PO SCH ×2 (09:10→16:30)
[2020-04-20] MEDS: Enoxaparin Sodium 40 MG/0.4 ML SYRINGE SC SCH (09:11)
--- NOTE | 2020-04-20 11:42 | PDOC.BPN ---
- Brief Progress Note Encounter Date: 04/20/20 Encounter Time: 11:39 Radiation Oncology End of Treatment Summary Identification: 84 yo F with remote history of early stage breast cancer treated comprehensively with surgery, chemo, radiation, and endocrine therapy in 2009, now with newly diagnosed metastatic breast cancer to bones, who has completed palliative radiation to painful left hip with pathologic fractures at S1 and left iliac wing. Radiation Description: Alisha Mistry was treated to the the left pelvis. Gross disease and pelvic fractures were delineated on the planning simulation CT scan, which included the left sacrum and left iliac bone. She received a total dose of 30 Gy in 10 fractions at 3 Gy per daily fraction via a two-field AP/PA technique with 18 MV photons and customized blocking. She had an unanticipated 5-day break in radiation due to inclement weather. Treatment Tolerance: Ms. Mistry tolerated treatment well without toxicities or complaints related to radiation. She still has mechanical pain when transferring; otherwise pain is managed well with fentanyl (and bowel regimen). Follow Up: She plans to be discharged from hospital soon, pending placement. Per my discussion with her , she can be discharged from radiation oncology clinic and will FU with medical oncology for further cancer management decisions.
[2020-04-20] MEDS: Acetaminophen 325 MG TAB PO PRN (11:52)
--- NOTE | 2020-04-20 14:45 | PDOC.HOSPP ---
- Subjective Encounter Date: 04/20/20 (f/u hyponatremia) Encounter Time: 14:43 Subjective: Pt today c/o feeling lightheaded. She has a low appetite and had radiation treatment today. She denies any pain at rest, but does have pain with movement. - Objective Vital Signs & Weight: Vital Signs (12 hours) Temp Pulse Resp BP BP Pulse Ox 04/20/20 09:10 134/73 04/20/20 08:00 98.1 F 92 18 154/67 H 94 L 04/20/20 03:57 93 L Weight Admit Weight 153 lb 4 oz Weight 153 lb 4 oz I&O: 04/19/20 04/20/20 04/21/20 06:59 06:59 06:59 Intake Total 2400 2837 Output Total 2800 2550 Balance -400 287 Result Diagrams: 04/20/20 04:32 04/20/20 04:32 Hospitalist ROS - Medication Medications: Active Medications Generic Name Dose Route Start Last Admin Trade Name Freq PRN Reason Stop Dose Admin Acetaminophen 650 mg 04/02/20 13:26 04/20/20 11:52 Acetaminophen 325 Mg Tab PO 650 mg Q4H PRN Administration Headache/Fever/Mild Pain (1-3) Cyanocobalamin 1,000 mcg 04/11/20 09:00 04/20/20 09:10 Cyanocobalamin (Vitamin B-12) 1,000 Mcg Tab PO 1,000 mcg DAILY CANDE Administration Dexamethasone 4 mg 04/03/20 17:00 04/20/20 09:10 Dexamethasone 4 Mg Tab PO 4 mg BID-WM CANDE Administration Fentanyl 50 mcg 04/13/20 23:00 04/19/20 22:20 Fentanyl 50 Mcg/Hour Patch TD 50 mcg Q3D@2300 CANDE Administration Fluticasone Propionate 0 gm 04/11/20 09:00 04/20/20 09:10 Fluticasone Propionate Nasal [place] 16 Gm Bottle NASAL 2 spray DAILY CANDE Administration Folic Acid 1 mg 04/11/20 09:00 04/20/20 09:10 Folic Acid 1 Mg Tab PO 1 mg DAILY CANDE Administration Iron/Minerals/Multivitamins 1 tab 04/11/20 09:00 04/20/20 09:10 Multivitamin W/ Minerals 1 Tab PO 1 tab DAILY CANDE Administration Levothyroxine Sodium 112 mcg 04/03/20 06:00 04/20/20 06:43 Levothyroxine Sodium 112 Mcg Tab PO 112 mcg 0600 CANDE Administration Lisinopril 20 mg 04/03/20 09:00 04/20/20 09:10 Lisinopril 20 Mg Tab PO 20 mg DAILY CANDE Administration Melatonin 3 mg 04/02/20 20:51 04/19/20 21:07 Melatonin 3 Mg Tab PO 3 mg HSPRN PRN Administration Insomnia Memantine 10 mg 04/03/20 09:00 04/20/20 09:09 Memantine Hcl 10 Mg Tab PO 10 mg DAILY CANDE Administration Montelukast Sodium 10 mg 04/03/20 09:00 04/20/20 09:09 Montelukast Sodium 10 Mg Tablet PO 10 mg DAILY CANDE Administration Ondansetron HCl 4 mg 04/10/20 07:34 04/12/20 16:34 Ondansetron Odt 4 Mg Tab SL 4 mg Q6H PRN Administration Nausea/Vomiting Pantoprazole Sodium 40 mg 04/04/20 09:00 04/20/20 09:09 Pantoprazole 40 Mg Tab PO 40 mg DAILY CANDE Administration Polyethylene Glycol 17 gm 04/10/20 09:00 04/20/20 09:10 Polyethylene Glycol 3350 17 Gm Packet PO 17 gm BID CANDE Administration Simethicone 80 mg 04/15/20 20:08 04/16/20 12:15 Simethicone Chewable 80 Mg Tab PO 80 mg Q6H PRN Administration Gas Pain Sodium Chloride 10 ml 04/02/20 13:26 04/18/20 16:57 Flush - Normal Saline 10 Ml Syringe IVF 10 ml PRN PRN Administration Saline Flush Sodium Chloride 1 gm 04/06/20 09:00 04/20/20 09:10 Sodium Chloride 1 Gm Tab PO 1 gm TID CANDE Administration Sodium Chloride 0 ml 04/10/20 07:34 04/13/20 14:46 Sodium Chloride 0.65% Nasal 44 Ml Bot EA NARE 1 spr QIDPRN PRN Administration Nasal Congestion Hospitalist Exam Vitals: Vital Signs (12 hours) Temp Pulse Resp BP BP Pulse Ox 04/20/20 09:10 134/73 04/20/20 08:00 98.1 F 92 18 154/67 H 94 L 04/20/20 03:57 93 L Weight Admit Weight 153 lb 4 oz Weight 153 lb 4 oz General Appearance: NAD Heart: RRR, no murmur Respiratory: no wheezes, no rales, no ronchi Gastrointestinal: soft, non-tender, non-distended, normal bowel sounds Extremities: no cyanosis, no clubbing, no edema Psychiatric: normal affect Hosp A/P (1) Hyponatremia Code(s): E87.1 - HYPO-OSMOLALITY AND HYPONATREMIA Status: Acute (2) Breast cancer metastasized to bone Code(s): C50.919 - MALIGNANT NEOPLASM OF UNSP SITE OF UNSPECIFIED FEMALE BREAST; C79.51 - SECONDARY MALIGNANT NEOPLASM OF BONE Status: Chronic (3) Hypertension Code(s): I10 - ESSENTIAL (PRIMARY) HYPERTENSION Status: Chronic (4) Thrombocytopenia Code(s): D69.6 - THROMBOCYTOPENIA, UNSPECIFIED Status: Chronic (5) Leukocytosis Code(s): D72.829 - ELEVATED WHITE BLOOD CELL COUNT, UNSPECIFIED Status: Acute (6) UTI (urinary tract infection) Status: Resolved Qualifiers: Urinary tract infection type: acute cystitis Hematuria presence: without hematuria Qualified Code(s): N30.00 - Acute cystitis without hematuria - Plan SIADH - appreciate Nephrology managing Lightheaded - hold on IVF as this will worsen the SIADH - will encourage patient to take PO UTI - s/p 10 doses of rocephin Thrombocytopenia - acute worsening on chronic - d/c lovenox Leukocytosis - on steroids, monitor anemia - stable Awaiting placement - has completed Radiation treatment and needs f/u in the Cancer Clinic tod discuss further treatment options. reviewed plan of care with patient/, no questions or further needs at end of eval. dvt prophy - no pharmacologic dvt prophy due to thrombocytopenia gi prophy - on PPI with steroids code status -full reviewed plan of care wiht patient and her , no questions or further needs at end of eval
[2020-04-20] MEDS: Melatonin 3 MG TAB PO PRN (21:30)
[2020-04-21 05:18] LABS: Hemoglobin 12.3 g/dL (12.0-16.0); Mean Corpuscular HGB CONC 33.1 g/dL (32.0-36.0); Mean Corpuscular Hemoglobin 31.5 pg (27.0-31.0); Mean Corpuscular Volume 95.1 fL (78.0-98.0); Mean Platelet Volume 10.9 fL (7.4-10.4); Platelet Count 39 thou/uL (130-400); RBC Distribution Width 16.5 % (11.5-14.5); Red Blood Cell (RBC) Count 3.91 mill/uL (4.20-5.40); White Blood Cell (WBC) Count 15.3 thou/uL (4.8-10.8)
[2020-04-21] MEDS: Acetaminophen 325 MG TAB PO PRN ×2 (05:21→15:53)
[2020-04-21] MEDS: Levothyroxine Sodium 112 MCG TAB PO SCH (05:21)
[2020-04-21 05:26] LABS: Anion Gap 13 mmol/L (10-20); BUN (Urea Nitrogen) 16 mg/dL (9.8-20.1); Calc. Creatinine Clearance 101 mL/min (70-130); Calcium 7.8 mg/dL (7.8-10.44); Carbon Dioxide 23 mmol/L (23-31); Chloride 98 mmol/L (98-107); Glucose 99 mg/dL (83-110); Potassium 4.2 mmol/L (3.5-5.1); Sodium 130 mmol/L (136-145)
[2020-04-21 05:46] LABS: Band 18 % (5-11); Lymphocytes 18 % (21-51); MDiff Complete? YES; Monocytes 13 % (0-10); Neutrophil 39 % (42-75); Nucleated RBC 6 % (0); Platelet Morphology Comment Appears Decreased; RBC Morphology Normal; Reactive Lymphocytes 12 % (0-10)
[2020-04-21] MEDS: Montelukast Sodium 10 mg Tablet PO SCH (09:43)
[2020-04-21] MEDS: Multivitamin W/ Minerals 1 TAB PO SCH (09:43)
[2020-04-21] MEDS: Sodium Chloride 1 GM TAB PO SCH ×3 (09:43→20:34)
[2020-04-21] MEDS: Dexamethasone 4 MG TAB PO SCH ×2 (09:43→16:00)
[2020-04-21] MEDS: Lisinopril 20 MG TAB PO SCH (09:43)
[2020-04-21] MEDS: Folic Acid 1 MG TAB PO SCH (09:43)
[2020-04-21] MEDS: Cyanocobalamin (Vitamin B-12) 1,000 MCG TAB PO SCH (09:43)
[2020-04-21] MEDS: Fluticasone Propionate Nasal Spray 16 gm Bottle NASAL SCH (09:44)
[2020-04-21] MEDS: Polyethylene Glycol 3350 17 GM Packet PO SCH ×2 (09:45→19:39)
--- NOTE | 2020-04-21 13:04 | PDOC.HOSPP ---
- Subjective Encounter Date: 04/21/20 (f/u met breast cancer) Encounter Time: 13:02 Subjective: Pt is without complaints. She reports pain in hip is controlled at rest. She denies any n/v/abd pain. last bm soft and a few days ago, prior to this was having multiple watery stools. - Objective Vital Signs & Weight: Vital Signs (12 hours) Temp Pulse Resp BP BP Pulse Ox 04/21/20 09:43 134/73 04/21/20 08:00 97.8 F 94 18 139/65 93 L 04/21/20 04:08 92 L Weight Admit Weight 153 lb 4 oz Weight 153 lb 4 oz I&O: 04/20/20 04/21/20 04/22/20 06:59 06:59 06:59 Intake Total 2837 920 360 Output Total 2550 1250 Balance 287 -330 360 Result Diagrams: 04/21/20 05:02 04/21/20 05:02 Hospitalist ROS - Medication Medications: Active Medications Generic Name Dose Route Start Last Admin Trade Name Chelsey PRN Reason Stop Dose Admin Acetaminophen 650 mg 04/02/20 13:26 04/21/20 05:21 Acetaminophen 325 Mg Tab PO 650 mg Q4H PRN Administration Headache/Fever/Mild Pain (1-3) Cyanocobalamin 1,000 mcg 04/11/20 09:00 04/21/20 09:43 Cyanocobalamin (Vitamin B-12) 1,000 Mcg Tab PO 1,000 mcg DAILY CANDE Administration Dexamethasone 4 mg 04/03/20 17:00 04/21/20 09:43 Dexamethasone 4 Mg Tab PO 4 mg BID- CANDE Administration Fentanyl 50 mcg 04/13/20 23:00 04/19/20 22:20 Fentanyl 50 Mcg/Hour Patch TD 50 mcg Q3D@2300 CANDE Administration Fluticasone Propionate 0 gm 04/11/20 09:00 04/21/20 09:44 Fluticasone Propionate Nasal [place] 16 Gm Bottle NASAL 2 spray DAILY CANDE Administration Folic Acid 1 mg 04/11/20 09:00 04/21/20 09:43 Folic Acid 1 Mg Tab PO 1 mg DAILY CANDE Administration Iron/Minerals/Multivitamins 1 tab 04/11/20 09:00 04/21/20 09:43 Multivitamin W/ Minerals 1 Tab PO 1 tab DAILY CANDE Administration Levothyroxine Sodium 112 mcg 04/03/20 06:00 04/21/20 05:21 Levothyroxine Sodium 112 Mcg Tab PO 112 mcg 0600 CANDE Administration Lisinopril 20 mg 04/03/20 09:00 04/21/20 09:43 Lisinopril 20 Mg Tab PO 20 mg DAILY CANDE Administration Melatonin 3 mg 04/02/20 20:51 04/20/20 21:30 Melatonin 3 Mg Tab PO 3 mg HSPRN PRN Administration Insomnia Memantine 10 mg 04/03/20 09:00 04/21/20 09:43 Memantine Hcl 10 Mg Tab PO 10 mg DAILY CANDE Administration Montelukast Sodium 10 mg 04/03/20 09:00 04/21/20 09:43 Montelukast Sodium 10 Mg Tablet PO 10 mg DAILY CANDE Administration Ondansetron HCl 4 mg 04/10/20 07:34 04/12/20 16:34 Ondansetron Odt 4 Mg Tab SL 4 mg Q6H PRN Administration Nausea/Vomiting Pantoprazole Sodium 40 mg 04/04/20 09:00 04/21/20 09:43 Pantoprazole 40 Mg Tab PO 40 mg DAILY CANDE Administration Polyethylene Glycol 17 gm 04/10/20 09:00 04/21/20 09:45 Polyethylene Glycol 3350 17 Gm Packet PO 17 gm BID CANDE Administration Simethicone 80 mg 04/15/20 20:08 04/16/20 12:15 Simethicone Chewable 80 Mg Tab PO 80 mg Q6H PRN Administration Gas Pain Sodium Chloride 10 ml 04/02/20 13:26 04/18/20 16:57 Flush - Normal Saline 10 Ml Syringe IVF 10 ml PRN PRN Administration Saline Flush Sodium Chloride 1 gm 04/06/20 09:00 04/21/20 09:43 Sodium Chloride 1 Gm Tab PO 1 gm TID CANDE Administration Sodium Chloride 0 ml 04/10/20 07:34 04/13/20 14:46 Sodium Chloride 0.65% Nasal 44 Ml Bot EA NARE 1 spr QIDPRN PRN Administration Nasal Congestion Hospitalist Exam Vitals: Vital Signs (12 hours) Temp Pulse Resp BP BP Pulse Ox 04/21/20 09:43 134/73 04/21/20 08:00 97.8 F 94 18 139/65 93 L 04/21/20 04:08 92 L Weight Admit Weight 153 lb 4 oz Weight 153 lb 4 oz General Appearance: NAD Heart: RRR, no murmur Respiratory: CTAB, no wheezes, no rales, no ronchi Gastrointestinal: soft, non-tender, non-distended, normal bowel sounds Extremities: no cyanosis, no clubbing, no edema Psychiatric: normal affect Hosp A/P (1) Hyponatremia Code(s): E87.1 - HYPO-OSMOLALITY AND HYPONATREMIA Status: Acute (2) Breast cancer metastasized to bone Code(s): C50.919 - MALIGNANT NEOPLASM OF UNSP SITE OF UNSPECIFIED FEMALE BREAST; C79.51 - SECONDARY MALIGNANT NEOPLASM OF BONE Status: Chronic (3) Hypertension Code(s): I10 - ESSENTIAL (PRIMARY) HYPERTENSION Status: Chronic (4) Thrombocytopenia Code(s): D69.6 - THROMBOCYTOPENIA, UNSPECIFIED Status: Chronic (5) Leukocytosis Code(s): D72.829 - ELEVATED WHITE BLOOD CELL COUNT, UNSPECIFIED Status: Acute (6) UTI (urinary tract infection) Status: Resolved Qualifiers: Urinary tract infection type: acute cystitis Hematuria presence: without hematuria Qualified Code(s): N30.00 - Acute cystitis without hematuria - Plan SIADH - appreciate Nephrology managing - stable and sodium 130 Lightheaded - resolved UTI - s/p 10 doses of rocephin Thrombocytopenia - acute worsening on chronic - d/c lovenox yesterday. Defer any evaluation to Oncology who is consulting Leukocytosis - on steroids, monitor anemia - stable Awaiting placement at rehab or skilled facility - has completed Radiation treatment and needs f/u in the Cancer Clinic to discuss further treatment op tions. dvt prophy - no pharmacologic dvt prophy due to thrombocytopenia gi prophy - on PPI with steroids code status -full reviewed plan of care with patient and her , no questions or further needs at end of eval
--- NOTE | 2020-04-21 18:57 | PRG ---
DATE OF SERVICE: 04/21/2020 SUBJECTIVE: The patient noted with the following vital signs. OBJECTIVE: VITAL SIGNS: Afebrile, temperature 97.8, pulse 94, respiratory rate of 18, blood pressure 134/73. HEENT: Unremarkable. CARDIOVASCULAR SYSTEM: First and second heart sounds were heard. RESPIRATORY SYSTEM: Clear to auscultation. DIGESTIVE SYSTEM: Revealed a benign abdomen with positive bowel sounds. EXTREMITIES: No peripheral edema. SKIN: No new gross rash. LYMPHATIC: No peripheral lymphadenopathy. LABORATORY INVESTIGATION: Showed a sodium of 130, creatinine 0.47. IMPRESSION: 1. Hyponatremia in the context of syndrome of inappropriate anti-diuretic hormone. 2. Syndrome of inappropriate anti-diuretic hormone. PLAN: 1. Continue current renal supportive measures. 2. Further management to be dependent on the clinical course. Job ID: [id number]
[2020-04-21] MEDS: BIOTENE MOUTH SPRAY 44.3 ML PO PRN (20:33)
[2020-04-21] MEDS: Melatonin 3 MG TAB PO PRN (20:34)
[2020-04-21] MEDS: Sodium Chloride 0.65% Nasal 44 ML BOT EA NARE PRN (20:57)
[2020-04-22 05:32] LABS: Hemoglobin 11.2 g/dL (12.0-16.0); Mean Corpuscular HGB CONC 33.1 g/dL (32.0-36.0); Mean Corpuscular Hemoglobin 30.8 pg (27.0-31.0); Mean Corpuscular Volume 92.9 fL (78.0-98.0); Mean Platelet Volume 11.5 fL (7.4-10.4); Platelet Count 32 thou/uL (130-400); RBC Distribution Width 16.7 % (11.5-14.5); Red Blood Cell (RBC) Count 3.64 mill/uL (4.20-5.40); White Blood Cell (WBC) Count 12.1 thou/uL (4.8-10.8)
[2020-04-22 05:45] LABS: Anion Gap 12 mmol/L (10-20); BUN (Urea Nitrogen) 16 mg/dL (9.8-20.1); Calc. Creatinine Clearance 93 mL/min (70-130); Calcium 7.5 mg/dL (7.8-10.44); Carbon Dioxide 25 mmol/L (23-31); Chloride 99 mmol/L (98-107); Glucose 86 mg/dL (83-110); Potassium 3.9 mmol/L (3.5-5.1); Sodium 132 mmol/L (136-145)
[2020-04-22 05:54] LABS: Band 15 % (5-11); Eosinophils 1 % (0-10); Lymphocytes 5 % (21-51); MDiff Complete? YES; Metamyelocyte 2 % (0-0); Monocytes 6 % (0-10); Neutrophil 71 % (42-75); Nucleated RBC 6 % (0); Platelet Morphology Comment Appears Decreased
[2020-04-22] MEDS: Levothyroxine Sodium 112 MCG TAB PO SCH (06:20)
[2020-04-22] MEDS: Acetaminophen 325 MG TAB PO PRN (06:35)
--- NOTE | 2020-04-22 07:46 | PDOC.HOSPP ---
- Subjective Encounter Date: 04/22/20 Encounter Time: 07:43 Subjective: awake, no distress. - Objective Vital Signs & Weight: Vital Signs (12 hours) Temp Pulse Resp BP Pulse Ox 04/22/20 01:53 94 L 04/21/20 20:30 94 L 04/21/20 20:00 98.0 F 108 H 18 133/66 94 L Weight Admit Weight 153 lb 4 oz Weight 153 lb 4 oz I&O: 04/21/20 04/22/20 04/23/20 06:59 06:59 06:59 Intake Total 920 1560 Output Total 1250 1750 Balance -330 -190 Result Diagrams: 04/22/20 04:59 04/22/20 04:59 Hospitalist ROS - Medication Medications: Active Medications Generic Name Dose Route Start Last Admin Trade Name Freq PRN Reason Stop Dose Admin Acetaminophen 650 mg 04/02/20 13:26 04/22/20 06:35 Acetaminophen 325 Mg Tab PO 650 mg Q4H PRN Administration Headache/Fever/Mild Pain (1-3) Cyanocobalamin 1,000 mcg 04/11/20 09:00 04/21/20 09:43 Cyanocobalamin (Vitamin B-12) 1,000 Mcg Tab PO 1,000 mcg DAILY CANDE Administration Dexamethasone 4 mg 04/03/20 17:00 04/21/20 16:00 Dexamethasone 4 Mg Tab PO 4 mg BID-WM CANDE Administration Fentanyl 50 mcg 04/13/20 23:00 04/19/20 22:20 Fentanyl 50 Mcg/Hour Patch TD 50 mcg Q3D@2300 CANDE Administration Fluticasone Propionate 0 gm 04/11/20 09:00 04/21/20 09:44 Fluticasone Propionate Nasal [place] 16 Gm Bottle NASAL 2 spray DAILY CANDE Administration Folic Acid 1 mg 04/11/20 09:00 04/21/20 09:43 Folic Acid 1 Mg Tab PO 1 mg DAILY CANDE Administration Iron/Minerals/Multivitamins 1 tab 04/11/20 09:00 04/21/20 09:43 Multivitamin W/ Minerals 1 Tab PO 1 tab DAILY CANDE Administration Levothyroxine Sodium 112 mcg 04/03/20 06:00 04/22/20 06:20 Levothyroxine Sodium 112 Mcg Tab PO 112 mcg 0600 CANDE Administration Lisinopril 20 mg 04/03/20 09:00 04/21/20 09:43 Lisinopril 20 Mg Tab PO 20 mg DAILY CANDE Administration Melatonin 3 mg 04/02/20 20:51 04/21/20 20:34 Melatonin 3 Mg Tab PO 3 mg HSPRN PRN Administration Insomnia Memantine 10 mg 04/03/20 09:00 04/21/20 09:43 Memantine Hcl 10 Mg Tab PO 10 mg DAILY CANDE Administration Miscellaneous Medication 1 ml 04/20/20 14:40 04/21/20 20:33 Biotene Mouth [place] 44.3 Ml PO 1 spr Q2H PRN Administration Dry Mouth Montelukast Sodium 10 mg 04/03/20 09:00 04/21/20 09:43 Montelukast Sodium 10 Mg Tablet PO 10 mg DAILY CANDE Administration Ondansetron HCl 4 mg 04/10/20 07:34 04/12/20 16:34 Ondansetron Odt 4 Mg Tab SL 4 mg Q6H PRN Administration Nausea/Vomiting Pantoprazole Sodium 40 mg 04/04/20 09:00 04/21/20 09:43 Pantoprazole 40 Mg Tab PO 40 mg DAILY CANDE Administration Polyethylene Glycol 17 gm 04/10/20 09:00 04/21/20 19:39 Polyethylene Glycol 3350 17 Gm Packet PO Not Given BID CANDE Simethicone 80 mg 04/15/20 20:08 04/16/20 12:15 Simethicone Chewable 80 Mg Tab PO 80 mg Q6H PRN Administration Gas Pain Sodium Chloride 10 ml 04/02/20 13:26 04/18/20 16:57 Flush - Normal Saline 10 Ml Syringe IVF 10 ml PRN PRN Administration Saline Flush Sodium Chloride 1 gm 04/06/20 09:00 04/21/20 20:34 Sodium Chloride 1 Gm Tab PO 1 gm TID CANDE Administration Sodium Chloride 0 ml 04/10/20 07:34 04/21/20 20:57 Sodium Chloride 0.65% Nasal 44 Ml Bot EA NARE 2 spr QIDPRN PRN Administration Nasal Congestion Hospitalist Exam Vitals: Vital Signs (12 hours) Temp Pulse Resp BP Pulse Ox 04/22/20 01:53 94 L 04/21/20 20:30 94 L 04/21/20 20:00 98.0 F 108 H 18 133/66 94 L Weight Admit Weight 153 lb 4 oz Weight 153 lb 4 oz General Appearance: awake alert Neck: no JVD Heart: RRR, no murmur Respiratory: CTAB Gastrointestinal: soft, non-distended, normal bowel sounds Extremities: no edema Hosp A/P (1) Cancer related pain Code(s): G89.3 - NEOPLASM RELATED PAIN (ACUTE) (CHRONIC) Status: Acute (2) Hyponatremia Code(s): E87.1 - HYPO-OSMOLALITY AND HYPONATREMIA Status: Acute (3) Breast cancer metastasized to bone Code(s): C50.919 - MALIGNANT NEOPLASM OF UNSP SITE OF UNSPECIFIED FEMALE BREAST; C79.51 - SECONDARY MALIGNANT NEOPLASM OF BONE Status: Chronic (4) Hypertension Code(s): I10 - ESSENTIAL (PRIMARY) HYPERTENSION Status: Chronic Qualifiers: Hypertension type: essential hypertension Qualified Code(s): I10 - Essential (primary) hypertension (5) Thrombocytopenia Code(s): D69.6 - THROMBOCYTOPENIA, UNSPECIFIED Status: Chronic (6) UTI (urinary tract infection) Status: Resolved Qualifiers: Urinary tract infection type: acute cystitis Hematuria presence: without hematuria Qualified Code(s): N30.00 - Acute cystitis without hematuria - Plan thrombocytopeia-cont off loveox pain-cont crrent Tx breast CA-post radiation- FU with oncology in future HTN- controlled
[2020-04-22] MEDS: Dexamethasone 4 MG TAB PO SCH ×2 (11:17→17:25)
[2020-04-22] MEDS: Lisinopril 20 MG TAB PO SCH (11:17)
[2020-04-22] MEDS: Montelukast Sodium 10 mg Tablet PO SCH (11:17)
[2020-04-22] MEDS: Fluticasone Propionate Nasal Spray 16 gm Bottle NASAL SCH (11:18)
[2020-04-22] MEDS: Polyethylene Glycol 3350 17 GM Packet PO SCH ×2 (11:18→21:20)
[2020-04-22] MEDS: Sodium Chloride 1 GM TAB PO SCH ×3 (11:18→21:20)
[2020-04-22] MEDS: Multivitamin W/ Minerals 1 TAB PO SCH (11:18)
[2020-04-22] MEDS: Cyanocobalamin (Vitamin B-12) 1,000 MCG TAB PO SCH (11:18)
[2020-04-22] MEDS: Folic Acid 1 MG TAB PO SCH (11:18)
[2020-04-22] MEDS: BIOTENE MOUTH SPRAY 44.3 ML PO PRN (11:19)
--- NOTE | 2020-04-22 18:43 | PRG ---
DATE OF SERVICE: 04/22/2020 OBJECTIVE: VITAL SIGNS: The patient noted with the following vital signs; afebrile, temperature 98.5, pulse 98, respiratory rate of 16, blood pressure 134/73. HEENT: Unremarkable. CARDIOVASCULAR SYSTEM: First and second heart sounds were heard. RESPIRATORY SYSTEM: Clear to auscultation. DIGESTIVE SYSTEM: Revealed a benign abdomen. EXTREMITIES: No peripheral edema. SKIN: No new gross rash. LYMPHATICS: No peripheral lymphadenopathy. LABORATORY INVESTIGATION: Showed a sodium of 132. IMPRESSION: Hyponatremia in the context of syndrome of inappropriate antidiuretic hormone secretion, much improved. PLAN: Continue current renal supportive measures. Job ID: [id number]
[2020-04-22] MEDS: Melatonin 3 MG TAB PO PRN (21:20)
[2020-04-22] MEDS: fentaNYL 50 mcg/hour Patch TD SCH (23:27)
[2020-04-23] MEDS: Levothyroxine Sodium 112 MCG TAB PO SCH (06:23)
[2020-04-23] MEDS: Folic Acid 1 MG TAB PO SCH (10:40)
[2020-04-23] MEDS: Sodium Chloride 1 GM TAB PO SCH ×3 (10:40→21:10)
[2020-04-23] MEDS: Lisinopril 20 MG TAB PO SCH (10:40)
[2020-04-23] MEDS: Multivitamin W/ Minerals 1 TAB PO SCH (10:40)
[2020-04-23] MEDS: Montelukast Sodium 10 mg Tablet PO SCH (10:40)
[2020-04-23] MEDS: Cyanocobalamin (Vitamin B-12) 1,000 MCG TAB PO SCH (10:40)
[2020-04-23] MEDS: Dexamethasone 4 MG TAB PO SCH ×2 (10:40→18:43)
[2020-04-23] MEDS: Polyethylene Glycol 3350 17 GM Packet PO SCH ×2 (10:41→21:10)
[2020-04-23] MEDS: Fluticasone Propionate Nasal Spray 16 gm Bottle NASAL SCH (10:41)
--- NOTE | 2020-04-23 11:51 | PDOC.HOSPP ---
- Subjective Encounter Date: 04/23/20 Encounter Time: 11:50 Subjective: pain adequately controlled. marked memory deficit - Objective Vital Signs & Weight: Vital Signs (12 hours) Temp Pulse Resp BP BP Pulse Ox 04/23/20 10:40 134/73 04/23/20 08:00 98.4 F 98 16 141/65 H 93 L Weight Admit Weight 153 lb 4 oz Weight 153 lb 4 oz I&O: 04/22/20 04/23/20 04/24/20 06:59 06:59 06:59 Intake Total 1560 1270 Output Total 1750 1050 Balance -190 220 Result Diagrams: 04/22/20 04:59 04/22/20 04:59 Hospitalist ROS - Medication Medications: Active Medications Generic Name Dose Route Start Last Admin Trade Name Freq PRN Reason Stop Dose Admin Acetaminophen 650 mg 04/02/20 13:26 04/22/20 06:35 Acetaminophen 325 Mg Tab PO 650 mg Q4H PRN Administration Headache/Fever/Mild Pain (1-3) Cyanocobalamin 1,000 mcg 04/11/20 09:00 04/23/20 10:40 Cyanocobalamin (Vitamin B-12) 1,000 Mcg Tab PO 1,000 mcg DAILY CANDE Administration Dexamethasone 4 mg 04/03/20 17:00 04/23/20 10:40 Dexamethasone 4 Mg Tab PO 4 mg BID-WM CANDE Administration Fentanyl 50 mcg 04/13/20 23:00 04/22/20 23:27 Fentanyl 50 Mcg/Hour Patch TD 50 mcg Q3D@2300 CANDE Administration Fluticasone Propionate 0 gm 04/11/20 09:00 04/23/20 10:41 Fluticasone Propionate Nasal [place] 16 Gm Bottle NASAL Not Given DAILY CANDE Folic Acid 1 mg 04/11/20 09:00 04/23/20 10:40 Folic Acid 1 Mg Tab PO 1 mg DAILY CANDE Administration Iron/Minerals/Multivitamins 1 tab 04/11/20 09:00 04/23/20 10:40 Multivitamin W/ Minerals 1 Tab PO 1 tab DAILY CANDE Administration Levothyroxine Sodium 112 mcg 04/03/20 06:00 04/23/20 06:23 Levothyroxine Sodium 112 Mcg Tab PO 112 mcg 0600 CANDE Administration Lisinopril 20 mg 04/03/20 09:00 04/23/20 10:40 Lisinopril 20 Mg Tab PO 20 mg DAILY CANDE Administration Melatonin 3 mg 04/02/20 20:51 04/22/20 21:20 Melatonin 3 Mg Tab PO 3 mg HSPRN PRN Administration Insomnia Memantine 10 mg 04/03/20 09:00 04/23/20 10:39 Memantine Hcl 10 Mg Tab PO 10 mg DAILY CANDE Administration Miscellaneous Medication 1 ml 04/20/20 14:40 04/22/20 11:19 Biotene Mouth [place] 44.3 Ml PO 1 spr Q2H PRN Administration Dry Mouth Montelukast Sodium 10 mg 04/03/20 09:00 04/23/20 10:40 Montelukast Sodium 10 Mg Tablet PO 10 mg DAILY CANDE Administration Ondansetron HCl 4 mg 04/10/20 07:34 04/12/20 16:34 Ondansetron Odt 4 Mg Tab SL 4 mg Q6H PRN Administration Nausea/Vomiting Pantoprazole Sodium 40 mg 04/04/20 09:00 04/23/20 10:40 Pantoprazole 40 Mg Tab PO 40 mg DAILY CANDE Administration Polyethylene Glycol 17 gm 04/10/20 09:00 04/23/20 10:41 Polyethylene Glycol 3350 17 Gm Packet PO Not Given BID CANDE Simethicone 80 mg 04/15/20 20:08 04/16/20 12:15 Simethicone Chewable 80 Mg Tab PO 80 mg Q6H PRN Administration Gas Pain Sodium Chloride 10 ml 04/02/20 13:26 04/18/20 16:57 Flush - Normal Saline 10 Ml Syringe IVF 10 ml PRN PRN Administration Saline Flush Sodium Chloride 1 gm 04/06/20 09:00 04/23/20 10:40 Sodium Chloride 1 Gm Tab PO 1 gm TID CANDE Administration Sodium Chloride 0 ml 04/10/20 07:34 04/21/20 20:57 Sodium Chloride 0.65% Nasal 44 Ml Bot EA NARE 2 spr QIDPRN PRN Administration Nasal Congestion Hospitalist Exam Vitals: Vital Signs (12 hours) Temp Pulse Resp BP BP Pulse Ox 04/23/20 10:40 134/73 04/23/20 08:00 98.4 F 98 16 141/65 H 93 L Weight Admit Weight 153 lb 4 oz Weight 153 lb 4 oz General Appearance: awake alert Neck: no JVD Heart: RRR, no murmur Respiratory: CTAB Gastrointestinal: soft, normal bowel sounds Extremities: no edema Hosp A/P (1) Cancer related pain Code(s): G89.3 - NEOPLASM RELATED PAIN (ACUTE) (CHRONIC) Status: Acute (2) Hyponatremia Code(s): E87.1 - HYPO-OSMOLALITY AND HYPONATREMIA Status: Acute (3) Breast cancer metastasized to bone Code(s): C50.919 - MALIGNANT NEOPLASM OF UNSP SITE OF UNSPECIFIED FEMALE BREAST; C79.51 - SECONDARY MALIGNANT NEOPLASM OF BONE Status: Chronic (4) Hypertension Code(s): I10 - ESSENTIAL (PRIMARY) HYPERTENSION Status: Chronic Qualifiers: Hypertension type: essential hypertension Qualified Code(s): I10 - Essential (primary) hypertension (5) Thrombocytopenia Code(s): D69.6 - THROMBOCYTOPENIA, UNSPECIFIED Status: Chronic (6) UTI (urinary tract infection) Status: Resolved Qualifiers: Urinary tract infection type: acute cystitis Hematuria presence: without hematuria Qualified Code(s): N30.00 - Acute cystitis without hematuria - Plan Rehab eval in progress thrombocytopeia-cont off loveox pain-cont crrent Tx breast CA-post radiation- FU with oncology in future HTN- controlled
--- NOTE | 2020-04-23 14:37 | PDOC.MOPN ---
Interval History: more alert, working with PT. pain improved. - Vital Signs Vital Signs: Vital Signs (12 hours) Temp Pulse Resp BP BP Pulse Ox 04/23/20 10:40 134/73 04/23/20 08:00 98.4 F 98 16 141/65 H 93 L Weight Admit Weight 153 lb 4 oz Weight 153 lb 4 oz - Physical Exam General: Alert Lungs: Clear to auscultation Cardiovascular: Regular rate Abdomen: Normal bowel sounds Neurological: Normal speech - Labs Result Diagrams: 04/22/20 04:59 04/22/20 04:59 Status: lab reviewed by me A/P - Problem (1) Breast cancer metastasized to bone Current Visit: Yes Code(s): C50.919 - MALIGNANT NEOPLASM OF UNSP SITE OF UNSPECIFIED FEMALE BREAST; C79.51 - SECONDARY MALIGNANT NEOPLASM OF BONE Status: Chronic - Plan Plan: await acceptance to [facility] follow-up outpatient for treatment options.
--- NOTE | 2020-04-23 17:34 | PRG ---
DATE OF SERVICE: 04/23/2020 OBJECTIVE: VITAL SIGNS: The patient is noted with the following vital signs; afebrile, temperature 98.4, pulse 98, respiratory rate 16, blood pressure 134/73. HEENT: Unremarkable. CARDIOVASCULAR SYSTEM: First and second heart sounds were heard. RESPIRATORY SYSTEM: Clear to auscultation. DIGESTIVE SYSTEM: Revealed a benign abdomen with positive bowel sounds. EXTREMITIES: No peripheral edema. SKIN: No new gross rash. LYMPHATICS: No peripheral lymphadenopathy. LABORATORY INVESTIGATIONS: Significant for sodium of 132. IMPRESSION: 1. Hyponatremia in the context of syndrome of inappropriate secretion of antidiuretic hormone. 2. Syndrome of inappropriate secretion of antidiuretic hormone, seems to be much improving. PLAN: 1. Continue current renal supportive measures. The patient to continue on high-protein diet to help to sustain the sodium level. 2. Further management to be dependent on the clinical course. Job ID: [id number]
[2020-04-23] MEDS: Melatonin 3 MG TAB PO PRN (21:10)
[2020-04-24] MEDS: Levothyroxine Sodium 112 MCG TAB PO SCH (06:28)
[2020-04-24] MEDS: Folic Acid 1 MG TAB PO SCH (08:52)
[2020-04-24] MEDS: Dexamethasone 4 MG TAB PO SCH ×2 (08:52→16:00)
[2020-04-24] MEDS: Cyanocobalamin (Vitamin B-12) 1,000 MCG TAB PO SCH (08:53)
[2020-04-24] MEDS: Multivitamin W/ Minerals 1 TAB PO SCH (08:53)
[2020-04-24] MEDS: Sodium Chloride 1 GM TAB PO SCH ×3 (08:53→21:02)
[2020-04-24] MEDS: Montelukast Sodium 10 mg Tablet PO SCH (08:53)
[2020-04-24] MEDS: Lisinopril 20 MG TAB PO SCH (08:53)
[2020-04-24] MEDS: Fluticasone Propionate Nasal Spray 16 gm Bottle NASAL SCH (08:55)
[2020-04-24] MEDS: Polyethylene Glycol 3350 17 GM Packet PO SCH ×2 (08:55→21:24)
--- NOTE | 2020-04-24 10:52 | PDOC.HOSPP ---
- Subjective Encounter Date: 04/24/20 Encounter Time: 10:49 Subjective: pain controlled, no other specific complaint - Objective Vital Signs & Weight: Vital Signs (12 hours) Temp Pulse Resp BP BP Pulse Ox 04/24/20 08:53 130/60 04/24/20 08:00 98.2 F 90 16 137/63 93 L Weight Admit Weight 153 lb 4 oz Weight 153 lb 4 oz I&O: 04/23/20 04/24/20 04/25/20 06:59 06:59 06:59 Intake Total 1270 1790 Output Total 1050 1350 Balance 220 440 Result Diagrams: 04/22/20 04:59 04/22/20 04:59 Hospitalist ROS - Medication Medications: Active Medications Generic Name Dose Route Start Last Admin Trade Name Freq PRN Reason Stop Dose Admin Acetaminophen 650 mg 04/02/20 13:26 04/22/20 06:35 Acetaminophen 325 Mg Tab PO 650 mg Q4H PRN Administration Headache/Fever/Mild Pain (1-3) Cyanocobalamin 1,000 mcg 04/11/20 09:00 04/24/20 08:53 Cyanocobalamin (Vitamin B-12) 1,000 Mcg Tab PO 1,000 mcg DAILY CANDE Administration Dexamethasone 4 mg 04/03/20 17:00 04/24/20 08:52 Dexamethasone 4 Mg Tab PO 4 mg BID-WM CANDE Administration Fluticasone Propionate 0 gm 04/11/20 09:00 04/24/20 08:55 Fluticasone Propionate Nasal [place] 16 Gm Bottle NASAL Not Given DAILY CANDE Folic Acid 1 mg 04/11/20 09:00 04/24/20 08:52 Folic Acid 1 Mg Tab PO 1 mg DAILY CANDE Administration Iron/Minerals/Multivitamins 1 tab 04/11/20 09:00 04/24/20 08:53 Multivitamin W/ Minerals 1 Tab PO 1 tab DAILY CANDE Administration Levothyroxine Sodium 112 mcg 04/03/20 06:00 04/24/20 06:28 Levothyroxine Sodium 112 Mcg Tab PO 112 mcg 0600 CANDE Administration Lisinopril 20 mg 04/03/20 09:00 04/24/20 08:53 Lisinopril 20 Mg Tab PO 20 mg DAILY CANDE Administration Melatonin 3 mg 04/02/20 20:51 04/23/20 21:10 Melatonin 3 Mg Tab PO 3 mg HSPRN PRN Administration Insomnia Memantine 10 mg 04/03/20 09:00 04/24/20 08:53 Memantine Hcl 10 Mg Tab PO 10 mg DAILY CANDE Administration Miscellaneous Medication 1 ml 04/20/20 14:40 04/22/20 11:19 Biotene Mouth [place] 44.3 Ml PO 1 spr Q2H PRN Administration Dry Mouth Montelukast Sodium 10 mg 04/03/20 09:00 04/24/20 08:53 Montelukast Sodium 10 Mg Tablet PO 10 mg DAILY CANDE Administration Ondansetron HCl 4 mg 04/10/20 07:34 04/12/20 16:34 Ondansetron Odt 4 Mg Tab SL 4 mg Q6H PRN Administration Nausea/Vomiting Pantoprazole Sodium 40 mg 04/04/20 09:00 04/24/20 08:53 Pantoprazole 40 Mg Tab PO 40 mg DAILY CANDE Administration Polyethylene Glycol 17 gm 04/10/20 09:00 04/24/20 08:55 Polyethylene Glycol 3350 17 Gm Packet PO Not Given BID CADNE Simethicone 80 mg 04/15/20 20:08 04/16/20 12:15 Simethicone Chewable 80 Mg Tab PO 80 mg Q6H PRN Administration Gas Pain Sodium Chloride 10 ml 04/02/20 13:26 04/18/20 16:57 Flush - Normal Saline 10 Ml Syringe IVF 10 ml PRN PRN Administration Saline Flush Sodium Chloride 1 gm 04/06/20 09:00 04/24/20 08:53 Sodium Chloride 1 Gm Tab PO 1 gm TID CANDE Administration Sodium Chloride 0 ml 04/10/20 07:34 04/21/20 20:57 Sodium Chloride 0.65% Nasal 44 Ml Bot EA NARE 2 spr QIDPRN PRN Administration Nasal Congestion Hospitalist Exam Vitals: Vital Signs (12 hours) Temp Pulse Resp BP BP Pulse Ox 04/24/20 08:53 130/60 04/24/20 08:00 98.2 F 90 16 137/63 93 L Weight Admit Weight 153 lb 4 oz Weight 153 lb 4 oz Neck: no JVD Heart: RRR Respiratory: CTAB Gastrointestinal: soft, normal bowel sounds Extremities: 1+ LE edema Hosp A/P (1) Cancer related pain Code(s): G89.3 - NEOPLASM RELATED PAIN (ACUTE) (CHRONIC) Status: Chronic (2) Hyponatremia Code(s): E87.1 - HYPO-OSMOLALITY AND HYPONATREMIA Status: Chronic (3) Breast cancer metastasized to bone Code(s): C50.919 - MALIGNANT NEOPLASM OF UNSP SITE OF UNSPECIFIED FEMALE BREAST; C79.51 - SECONDARY MALIGNANT NEOPLASM OF BONE Status: Chronic (4) Hypertension Code(s): I10 - ESSENTIAL (PRIMARY) HYPERTENSION Status: Chronic Qualifiers: Hypertension type: essential hypertension Qualified Code(s): I10 - Essential (primary) hypertension (5) Thrombocytopenia Code(s): D69.6 - THROMBOCYTOPENIA, UNSPECIFIED Status: Chronic (6) UTI (urinary tract infection) Status: Resolved Qualifiers: Urinary tract infection type: acute cystitis Hematuria presence: without hematuria Qualified Code(s): N30.00 - Acute cystitis without hematuria - Plan Rehab eval in progress thrombocytopeia-cont off loveox pain-cont crrent Tx breast CA-post radiation- FU with oncology in future HTN- controlled
--- NOTE | 2020-04-24 19:24 | PRG ---
DATE OF SERVICE: 04/24/2020 OBJECTIVE: VITAL SIGNS: The patient noted with the following vital signs; afebrile, temperature 98.2, blood pressure 130/60, with a pulse of 90. HEENT: Unremarkable. CARDIOVASCULAR SYSTEM: First and second heart sounds were heard. RESPIRATORY SYSTEM: Clear to auscultation. DIGESTIVE SYSTEM: Revealed a benign abdomen with positive bowel sounds. EXTREMITIES: No peripheral edema. SKIN: No new gross rash. LYMPHATICS: No peripheral lymphadenopathy. IMPRESSION: Hyponatremia in the context of syndrome of inappropriate antidiuretic hormone secretion. PLAN: 1. Continue current renal supportive measures. 2. Further management to be dependent on the clinical course. Job ID: [id number]
[2020-04-24] MEDS: Melatonin 3 MG TAB PO PRN (21:02)
[2020-04-25] MEDS: Levothyroxine Sodium 112 MCG TAB PO SCH (06:03)
[2020-04-25 06:43] VITALS: TEMP 97.6
[2020-04-25] MEDS: Multivitamin W/ Minerals 1 TAB PO SCH (10:14)
[2020-04-25] MEDS: Lisinopril 20 MG TAB PO SCH (10:14)
[2020-04-25] MEDS: Cyanocobalamin (Vitamin B-12) 1,000 MCG TAB PO SCH (10:15)
[2020-04-25] MEDS: Folic Acid 1 MG TAB PO SCH (10:15)
[2020-04-25] MEDS: Dexamethasone 4 MG TAB PO SCH (10:15)
[2020-04-25] MEDS: Montelukast Sodium 10 mg Tablet PO SCH (10:15)
[2020-04-25] MEDS: Sodium Chloride 1 GM TAB PO SCH (10:15)
[2020-04-25 10:16] VITALS: BP 121/58
[2020-04-25] MEDS: Polyethylene Glycol 3350 17 GM Packet PO SCH (10:16)
[2020-04-25] MEDS: Fluticasone Propionate Nasal Spray 16 gm Bottle NASAL SCH (10:30)
--- NOTE | 2020-04-26 07:59 | DIS ---
DATE OF ADMISSION: 04/02/2020 DATE OF DISCHARGE: 04/25/2020 PRIMARY CARE PROVIDER: Kelechi Walker MD FINAL DIAGNOSES: 1. 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 2. Metastatic breast cancer. 3. Hypertension. 4. Hyponatremia. 5. Transaminitis. 6. Physical deconditioning. 7. Thrombocytopenia. 8. Urinary tract infection. DISCHARGE MEDICATIONS: 1. Lisinopril 20 mg a day. 2. Levothyroxine 112 mcg a day. 3. Singulair 10 mg a day. 4. Namenda 10 mg a day. 5. Fentanyl 50 mcg patch q.3 days. 6. MiraLAX 17 g p.o. b.i.d. 7. Protonix 40 mg a day. 8. Melatonin 3 mg at bedtime. 9. Folvite 1 mg a day. 10. Decadron 4 mg p.o. b.i.d. ALLERGIES: NO KNOWN DRUG ALLERGIES. CODE STATUS: Full. PENDING AT THE TIME OF DISCHARGE: Nothing. DIET: Heart healthy. HOSPITAL COURSE: The patient admitted to the hospital on 04/02/2020 with left hip pain, generalized weakness, history of metastatic breast cancer. Initial studies; white cell count 7.7, hemoglobin 13.4, platelet count 99,000. D-dimer 6.97. Sodium 130, potassium 3.6, BUN 16, creatinine 0.75, blood sugar 113. AST 135, ALT 117, alkaline phosphatase 1079. COVID negative. She had a urine culture done, which grew E coli sensitive to cephalosporins and quinolones. Consultation with Radiology for bone biopsy CT-guided on 04/04/2020 by Gilbert Greer, Radiotherapy; SILVINO Mejia, Palliative Care; Jessenia Keating, SALTY, Oncology. The patient had the bone marrow biopsy. She was seen by Dr. Ganesh Barbour on 04/07/2020 for hyponatremia. Pathology confirmed ER/LA positive metastatic breast cancer. She was treated with oral narcotics, hormonal therapy. Followup laboratory on 04/16/2020, white count 14.5, most likely related to steroid therapy, hemoglobin 11.8, platelet count 96,000. Chemistries on 04/16, her sodium 127, potassium 4.6, BUN 22, creatinine 0.55. There is planned radiotherapy in the future. The patient has been waiting for placement for multiple days. She is being sent to [facility]. Followup post rehab will be with Dr. Kelechi Walker. She also needs followup with radiotherapy and Oncology in the future. She received radiotherapy during the hospital because of time lapse between plan to discharge to half-way facility versus rehab at the time that she was actually here in addition to follow up with Dr. Kelechi Walker. She will need follow up with Medical Oncology. Job ID: [id number]
== END 2020-04-25 14:45 | DRG 478 ==
LOC: ERS 10:25 → ONC 13:04
PROVIDERS: ADMIT Internal Medicine; ATTEND Internal Medicine
PROC: 0QB33ZX Excision of Left Pelvic Bone, Percutaneous Approach, Diagnostic (ICD-10-PCS; principal; 2020-04-03)
PROC: DW062ZZ Beam Radiation of Pelvic Region using Photons >10 MeV (ICD-10-PCS; 2020-04-20)
DX: C79.51 Secondary malignant neoplasm of bone (principal); S32.392A Other fracture of left ilium, initial encounter for closed fracture; E22.2 Syndrome of inappropriate secretion of antidiuretic hormone; N30.00 Acute cystitis without hematuria; E44.0 Moderate protein-calorie malnutrition; Z20.822 Contact with and (suspected) exposure to COVID-19; Z51.5 Encounter for palliative care; D72.829 Elevated white blood cell count, unspecified; T38.0X5A Adverse effect of glucocorticoids and synthetic analogues, initial encounter; K59.03 Drug induced constipation; T50.995A Adverse effect of other drugs, medicaments and biological substances, initial encounter; B95.2 Enterococcus as the cause of diseases classified elsewhere; B96.20 Unspecified Escherichia coli [E. coli] as the cause of diseases classified elsewhere; E66.9 Obesity, unspecified; R74.01 Elevation of levels of liver transaminase levels; D69.6 Thrombocytopenia, unspecified; E03.9 Hypothyroidism, unspecified; D63.0 Anemia in neoplastic disease; I10 Essential (primary) hypertension; J45.909 Unspecified asthma, uncomplicated; W19.XXXA Unspecified fall, initial encounter; G89.3 Neoplasm related pain (acute) (chronic); Z79.890 Hormone replacement therapy; Z79.899 Other long term (current) drug therapy; Z85.3 Personal history of malignant neoplasm of breast; Z68.32 Body mass index [BMI] 32.0-32.9, adult; Z90.710 Acquired absence of both cervix and uterus
CPT/HCPCS: 20225; 36415; 71045; 77002; 77014; 77280; 77290; 77307; 77334; 77412; 77417; 80048; 80053; 80076; 81001; 83605; 83735; 83880; 83935; 84165; 84166; 84300; 85025; 85379; 85610; 85730; 87077; 87086; 87186; 87324; 87449; 87635; 88307; 88333; 88341; 88342; 88360; 96374; J0696; J1650; J2270; J3010; J3490; J8540; Q0162; U0003; U0005

== ENCOUNTER 2020-05-05 15:31 | Inpatient (IN) | payer MEDICARE ==
[~2020-05-05 15:31] MED LIST: Iopamidol-370 76% 500 ML 1 ML ONE
[2020-05-05 16:13] LABS: Actual Bicarbonate (HCO3a) 22.1 mEq/L (22-28); Analyzer IN Cardio ER; Base Excess (BEa) -0.8 mEq/L (-2.0 to +3.0); CO2 Tension 31.6 mmHg (35.0-45.0); Calcium, Ionized (arterial) 1.16 mmol/L (1.12-1.30); Carboxyhemoglobin (COHb) 0.8 gm% (0.0-3.0); Hemoglobin (Hb) 13.8 g/dL (12.0-16.0); O2 Tension (PaO2), arterial 194.2 mmHg (> 60.0); Potassium - ABG Lab 4.48 mmol/L (3.70-5.30); pH, Arterial 7.46 (7.35-7.45)
[2020-05-05 16:15] LABS: Puncture Site RRA
[2020-05-05] MEDS ORDERED: Dexamethasone 4 mg/ml Vial ONE (17:22)
[2020-05-05 17:24] LABS: Hemoglobin 8.6 g/dL (12.0-16.0); Mean Corpuscular HGB CONC 33.4 g/dL (32.0-36.0); Mean Corpuscular Hemoglobin 31.6 pg (27.0-31.0); Mean Corpuscular Volume 94.6 fL (78.0-98.0); Mean Platelet Volume 12.6 fL (7.4-10.4); Platelet Count 20 thou/uL (130-400); RBC Distribution Width 17.6 % (11.5-14.5); Red Blood Cell (RBC) Count 2.72 mill/uL (4.20-5.40)
[2020-05-05 17:44] LABS: Anisocytosis SLIGHT = 6-15 cells (100X) (0-5/hpf); Band 24 % (5-11); Lymphocytes 20 % (21-51); MDiff Complete? YES; Metamyelocyte 5 % (0-0); Monocytes 2 % (0-10); Myelocyte 1 % (0-0); Neutrophil 47 % (42-75); Nucleated RBC 12 % (0); Ovalocytes SLIGHT = 2-5 cells (100X) (0-1/hpf); Platelet Morphology Comment Appears Decreased; Poikilocytosis SLIGHT = 6-15 cells (100X) (0-5/hpf); Polychromasia MODERATE = 3-4 cells (100X) (0-2/hpf); Reactive Lymphocytes 1 % (0-10); Schistocytes SLIGHT = 2-5 cells (100X) (0-1/hpf); White Blood Cell (WBC) Count 5.4 thou/uL (4.8-10.8)
[2020-05-05] MEDS ORDERED: Aspirin Chewable 81 MG TAB ONE (18:02)
[2020-05-05 18:04] LABS: ALT (SGPT) 203 U/L (8-55); AST (SGOT) 230 U/L (5-34); Albumin 2.4 g/dL (3.4-4.8); Alkaline Phosphatase 886 U/L (40-110); Anion Gap 17 mmol/L (10-20); BUN (Urea Nitrogen) 30 mg/dL (9.8-20.1); Bilirubin, Total 1.7 mg/dL (0.2-1.2); CK (CPK) 263 U/L (29-168); Calc. Creatinine Clearance 0 mL/min (70-130); Calcium 7.8 mg/dL (7.8-10.44); Carbon Dioxide 20 mmol/L (23-31); Chloride 106 mmol/L (98-107); Globulin 2.3 g/dL (2.4-3.5); Glucose 119 mg/dL (83-110); Lipase 17 U/L (8-78); Potassium 4.5 mmol/L (3.5-5.1); Protein, Total 4.7 g/dL (5.8-8.1); Sodium 138 mmol/L (136-145)
[2020-05-05 18:32] LABS: SARS-CoV-2 NAA Rapid Test Not Detected (NotDetected)
[2020-05-05] MEDS ORDERED: Vancomycin 1 GM/200 ML BAG ONE (19:22)
[2020-05-05] MEDS ORDERED: Furosemide 40 MG/4 ML VIAL SLOW IVP SCH (20:00)
[2020-05-05 20:13] LABS: Lactic Acid 1.9 mmol/L (0.5-2.2)
[2020-05-05 20:51] LABS: Troponin I 0.017 ng/mL (< 0.028)
[2020-05-05] MEDS ORDERED: Ondansetron ODT 4 MG TAB SL PRN (21:00)
[2020-05-05] MEDS ORDERED: Sodium Chloride 0.9% 1,000 ML IV SCH (21:00)
[2020-05-05] MEDS ORDERED: Ondansetron PF 4 MG/2 ML Vial IVP PRN (21:00)
[2020-05-05 22:27] VITALS: BMI 33.0
[2020-05-06 00:02] LABS: Troponin I 0.024 ng/mL (< 0.028)
[2020-05-06 04:05] LABS: Hemoglobin 7.3 g/dL (12.0-16.0); Mean Corpuscular HGB CONC 33.1 g/dL (32.0-36.0); Mean Corpuscular Hemoglobin 31.2 pg (27.0-31.0); Mean Corpuscular Volume 94.3 fL (78.0-98.0); Mean Platelet Volume 8.1 fL (7.4-10.4); Platelet Count 84 thou/uL (130-400); RBC Distribution Width 17.8 % (11.5-14.5); Red Blood Cell (RBC) Count 2.34 mill/uL (4.20-5.40); White Blood Cell (WBC) Count 5.6 thou/uL (4.8-10.8)
[2020-05-06 04:10] LABS: ALT (SGPT) 181 U/L (8-55); AST (SGOT) 201 U/L (5-34); Albumin 2.4 g/dL (3.4-4.8); Alkaline Phosphatase 745 U/L (40-110); Anion Gap 15 mmol/L (10-20); BUN (Urea Nitrogen) 28 mg/dL (9.8-20.1); Bilirubin, Total 1.4 mg/dL (0.2-1.2); Calc. Creatinine Clearance 100 mL/min (70-130); Calcium 7.8 mg/dL (7.8-10.44); Carbon Dioxide 20 mmol/L (23-31); Chloride 105 mmol/L (98-107); Globulin 2.2 g/dL (2.4-3.5); Glucose 118 mg/dL (83-110); Potassium 4.1 mmol/L (3.5-5.1); Protein, Total 4.6 g/dL (5.8-8.1); Sodium 136 mmol/L (136-145)
[2020-05-06 04:32] LABS: Band 14 % (5-11); Hypochromia SLIGHT = 6-15 cells (100X) (0-5/hpf); Lymphocytes 18 % (21-51); Metamyelocyte 1 % (0-0); Monocytes 12 % (0-10); Neutrophil 52 % (42-75); Nucleated RBC 15 % (0); Reactive Lymphocytes 3 % (0-10)
[2020-05-06 04:33] LABS: Platelet Morphology Comment Appears Decreased; Polychromasia SLIGHT = 2-3 cells (100X) (0-2/hpf); Target Cells SLIGHT = 2-5 cells (100X) (0-1/hpf)
[2020-05-06 04:34] LABS: MDiff Complete? YES
[2020-05-06] MEDS: Vancomycin HCl 750 MG in Sodium Chloride 0.9% 250 ML 250 ML IVPB SCH ×2 (05:31→16:57)
[2020-05-06] MEDS ORDERED: Sodium Chloride 0.9% (PF) 10 ML VIAL FS PRN (09:00)
[2020-05-06] MEDS ORDERED: Pantoprazole 40 MG VIAL IVP SCH ×2 (09:00)
[2020-05-06 12:59] LABS: SARS-CoV-2 PCR by NAA Not Detected (NotDetected)
[2020-05-06] MEDS ORDERED: diphenhydrAMINE 50 MG/ML VIAL IVP SCH (21:00)
[2020-05-06] MEDS ORDERED: FLU VACC QS2020-21(65YR UP)/PF 240 MCG/0.7 ML SYRINGE IM ONE (21:00)
[2020-05-06] MEDS ORDERED: Melatonin 3 MG TAB PO PRN (21:26)
[2020-05-06] MEDS ORDERED: Acetaminophen 650 MG Suppository PR PRN (22:27)
[2020-05-06] MEDS ORDERED: fentaNYL 50 mcg/hour Patch TD SCH (23:00)
[2020-05-07 00:15] VITALS: TEMP 98.3
[2020-05-07] MEDS ORDERED: Levothyroxine Sodium 112 MCG TAB PO SCH (06:00)
[2020-05-07] MEDS ORDERED: Dexamethasone 4 MG TAB PO SCH (08:00)
[2020-05-07] MEDS ORDERED: Cyanocobalamin (Vitamin B-12) 1,000 MCG TAB PO SCH (09:00)
[2020-05-07] MEDS ORDERED: Ascorbic Acid 500 mg Chewable Tablet PO SCH (09:00)
[2020-05-07] MEDS ORDERED: Montelukast Sodium 10 mg Tablet PO SCH (09:00)
[2020-05-07] MEDS ORDERED: Zinc Sulfate 220 MG CAP PO SCH (09:00)
[2020-05-07] MEDS ORDERED: Multivitamin W/ Minerals 1 TAB PO SCH (09:00)
[2020-05-07] MEDS ORDERED: Fluticasone Propionate Nasal Spray 16 gm Bottle NASAL SCH (09:00)
[2020-05-07] MEDS ORDERED: Folic Acid 1 MG TAB PO SCH (09:00)
== END 2020-05-07 00:58 | disposition expired | DRG 813 ==
LOC: ERS 15:31 → IMCU/EMU 17:16
PROVIDERS: ADMIT Internal Medicine; ATTEND Family Medicine
PROC: 30233R1 Transfusion of Nonautologous Platelets into Peripheral Vein, Percutaneous Approach (ICD-10-PCS; principal; 2020-05-05)
PROC: 5A0945A Assistance with Respiratory Ventilation, 24-96 Consecutive Hours, High Flow/Velocity Cannula (ICD-10-PCS; 2020-05-05)
PROC: 8E0ZXY6 Isolation (ICD-10-PCS; 2020-05-05)
DX: D69.6 Thrombocytopenia, unspecified (principal); J96.01 Acute respiratory failure with hypoxia; J18.9 Pneumonia, unspecified organism; C79.51 Secondary malignant neoplasm of bone; E44.1 Mild protein-calorie malnutrition; Z66 Do not resuscitate; Z51.5 Encounter for palliative care; Z20.822 Contact with and (suspected) exposure to COVID-19; C50.919 Malignant neoplasm of unspecified site of unspecified female breast; D63.8 Anemia in other chronic diseases classified elsewhere; R74.01 Elevation of levels of liver transaminase levels; J45.909 Unspecified asthma, uncomplicated; E78.00 Pure hypercholesterolemia, unspecified; E03.9 Hypothyroidism, unspecified; F03.90 Unspecified dementia, unspecified severity, without behavioral disturbance, psychotic disturbance, mood disturbance, and anxiety; Z87.440 Personal history of urinary (tract) infections; Z28.21 Immunization not carried out because of patient refusal; Z17.0 Estrogen receptor positive status [ER+]; Z79.899 Other long term (current) drug therapy; Z79.890 Hormone replacement therapy; Z68.33 Body mass index [BMI] 33.0-33.9, adult
CPT/HCPCS: 0240U; 36415; 36430; 36600; 71045; 71275; 80053; 82550; 82728; 82805; 83605; 83690; 83880; 84145; 84484; 85025; 86140; 86850; 86900; 86901; 87040; 87635; 93005; 96365; 96366; 96367; 96375; C9113; J1100; J1200; J1940; J1956; J3370; J7050; P9035; Q9967; U0003; U0005